=== PATIENT | female | born 1995 | race Hispanic/Latino ===

== ENCOUNTER 2021-07-13 16:28 | Emergency (ER) | payer OTHER, BC, SELFPAY ==
[2021-07-13 16:48] VITALS: BP 113/58; PULSE 94; RESP 18; O2SAT 100
--- NOTE | 2021-07-13 17:26 | ED.NAVMDI ---
HPI - Nausea/Vomiting/Diarrhea General Chief complaint: Nausea/Vomiting/Diarrhea Stated complaint: headache and nausea during - 15 wks Time Seen by Provider: 07/13/21 17:15 History of Present Illness HPI Narrative: 25-year-old female presents emergency room for evaluation of vomiting and diarrhea was since yesterday. Patient states that she is 15 weeks and is receiving regular [employer] [employer] care. You patient also complains of a generalized abdominal cramping, headache, and body aches. Patient denies fever. Related Data Allergies Allergy/AdvReac Type Severity Reaction Status Date / Time No Known Allergies Allergy Unverified 10/07/18 16:31 Review of Systems Review of Systems: CONSTITUTIONAL: Denies fever, chills, or sweats. EYES: Denies visual changes, redness, or discharge. ENT: Denies rhinorrhea, congestion, sore throat, or otalgia. CARDIOVASCULAR: Denies chest pain, palpitations, or edema. RESPIRATORY: Denies cough or dyspnea. GASTROINTESTINAL: Reports nausea vomiting diarrhea GENITOURINARY: Denies dysuria or hematuria. SKIN: Denies rash or itching. MUSCULOSKELETAL: Denies back pain, joint pain, or myalgia. NEUROLOGIC: Denies headache, numbness, dizziness, or weakness. PSYCHIATRIC: Denies anxiety or depression. Exam Narrative: GENERAL: Well-appearing, well-nourished, and in no acute distress. HEAD: Normocephalic, atraumatic. EYES: PERRLA and EOMI. CHEST: Clear to auscultation. No respiratory distress. No wheezes rales or rhonchi HEART: Regular rate and rhythm. No murmur heard. Normal peripheral pulses. ABDOMEN: Soft, nontender, nondistended, normal active bowel sounds. EXTREMITIES: Normal range of motion. No edema. SKIN: Warm, dry, no rash. NEURO: No focal deficits. Alert and oriented x3. PSYCH: Normal mood and affect. Course Vital Signs Vital signs: Vital Signs Pulse Rate 94 07/13/21 16:48 Respiratory Rate 18 07/13/21 16:48 Blood Pressure 113/58 L 07/13/21 16:48 Pulse Oximetry 100 07/13/21 16:48 Pulse Rate 94 07/13/21 16:48 Respiratory Rate 18 07/13/21 16:48 Blood Pressure 113/58 L 07/13/21 16:48 Pulse Oximetry 100 07/13/21 16:48 MDM - Nausea/Vomiting/Diarrhea Lab Data Result diagrams: 07/13/21 18:01 07/13/21 18:01 Labs: Lab Results 07/13/21 07/13/21 07/13/21 Range/Units 18:01 18:01 19:14 WBC 9.2 (4.5-10.0) K/mm3 RBC 3.78 L (4.2-5.4) M/mm3 Hgb 11.2 L (12.0-15.0) g/dL Hct 33.3 L (37.0-47.0) % MCV 88.1 (80-100) fl MCH 29.6 (26-34) pg MCHC 33.6 (32-36) g/dl RDW 12.3 (11.5-14.5) % Plt Count 241 (150-375) k/mm3 MPV 9.3 (7.4-10.4) fl Immature Gran % (Auto) 0.5 (0-0.5) % Neut % (Auto) 78.5 H (45.5-73.1) % Lymph % (Auto) 15.8 L (18.3-44.2) % [place] % (Auto) 4.8 (2.6-8.5) % Eos % (Auto) 0.2 (0-4.4) % Baso % (Auto) 0.2 (0.2-1.2) % Lymph # (Auto) 1.46 (0.9-3.2) K/mm3 [place] # (Auto) 0.4 (0.1-0.6) K/mm3 Eos # (Auto) 0.0 (0-0.3) K/mm3 Baso # (Auto) 0.0 (0.0-0.1) K/mm3 Abs Immat Gran (auto) 0.05 H (0.00-0.031) K/mm3 Absolute Neuts (auto) 7.2 H (1.3-6.7) K/mm3 Absolute Nucleated RBC 0.0 (0.0-0.012) K/mm3 Nucleated RBC % 0.0 (0.0-0.2) % Sodium 134 L (137-145) mmol/L Potassium 3.6 (3.4-5.0) mmol/L Chloride 103 (98-107) mmol/L Carbon Dioxide 23 (22-30) mmol/L Anion Gap 8 (8-16) mmol/L BUN 7 (7-17) mg/dL Creatinine 0.40 L (0.7-1.0) mg/dL Estim Creat Clear Calc 157 ml/min Estimated GFR > 60 (59 - ) Glucose 95 (65-110) mg/dL Calcium 8.6 (8.4-10.2) mg/dL Total Bilirubin 0.2 (0.2-1.3) mg/dL AST 22 (14-36) U/L ALT 11 (4-35) U/L Alkaline Phosphatase 55 (38-126) U/L Total Protein 7.0 (6.3-8.2) g/dL Albumin 4.1 (3.5-5.1) g/dL Urine Color Straw (Yellow) Urine Appearance Clear (Clear) Urine pH 6.0 (5.0-9.0) Ur Specific [place] 1.0
[2021-07-13] MEDS: ONDANSETRON INJ 4 MG/2 ML VIAL IV PUSH (18:03)
[2021-07-13] MEDS: SODIUM CHLORIDE 0.9% IV 1,000 ML 999 ML IV CONT (18:03)
[2021-07-13 18:12] LABS: Basophils Percent Auto 0.2 % (0.2-1.2); Eosinophils Percent Auto 0.2 % (0-4.4); Hematocrit 33.3 % (37.0-47.0); Hemoglobin 11.2 g/dL (12.0-15.0); Immature Granulocyte Absolute 0.05 K/mm3 (0.00-0.031); Immature Granulocyte Percent A 0.5 % (0-0.5); Lymphocytes Absolute Auto 1.46 K/mm3 (0.9-3.2); Lymphocytes Percent Auto 15.8 % (18.3-44.2); Mean Corpuscular HGB Conc 33.6 g/dl (32-36); Mean Corpuscular Hemoglobin 29.6 pg (26-34); Mean Corpuscular Volume 88.1 fl (80-100); Mean Platelet Volume 9.3 fl (7.4-10.4); Monocytes Absolute Auto 0.4 K/mm3 (0.1-0.6); Monocytes Percent Auto 4.8 % (2.6-8.5); Neutrophils Absolute Auto 7.2 K/mm3 (1.3-6.7); Neutrophils Percent Auto 78.5 % (45.5-73.1); Platelet Count Result 241 k/mm3 (150-375); Red Blood Count 3.78 M/mm3 (4.2-5.4); Red Cell Distribution Width 12.3 % (11.5-14.5); White Blood Count 9.2 K/mm3 (4.5-10.0)
[2021-07-13] MEDS: ACETAMINOPHEN 500 MG TABLET 1000 MG PO (18:14)
[2021-07-13 18:22] LABS: Alanine Aminotransferase 11 U/L (4-35); Albumin Level 4.1 g/dL (3.5-5.1); Alkaline Phosphatase 55 U/L (38-126); Anion Gap 8 mmol/L (8-16); Aspartate Amino Transferase 22 U/L (14-36); Bilirubin,Total 0.2 mg/dL (0.2-1.3); Blood Urea Nitrogen 7 mg/dL (7-17); Calcium 8.6 mg/dL (8.4-10.2); Carbon Dioxide 23 mmol/L (22-30); Chloride 103 mmol/L (98-107); Estimated CRCL calculation 157 ml/min; Estimated Glomerular Filt Rate > 60; Glucose 95 mg/dL (65-110); Potassium 3.6 mmol/L (3.4-5.0); Sodium 134 mmol/L (137-145)
[2021-07-13 19:28] LABS: Add Urine Microscopic? YES; Appearance Urine Clear (Clear); Bilirubin Urine Negative (Negative); Blood Urine 1+ (Negative); Color Urine Straw (Yellow); Glucose Urine UA Negative (Negative); Ketones Urine 1+ mg/dL (Negative); Leukocyte Esterase Ur Negative LEU/UL (Negative); Mucus Urine Rare /lpf; Nitrate Urine Negative (Negative); Protein Urine Negative (Negative); RBC Urine 0-2 /hpf (0-2); Specific Grav Ur 1.009 (1.001-1.035); Squamous Epithelial Cell Urine Rare /hpf (Few); Urobilinogen Urine Negative mg/dL (<2.0); WBC Urine 0-3 /hpf
[2021-07-13 19:51] VITALS: BP 100/58; PULSE 81; RESP 14; O2SAT 100
== END 2021-07-13 19:52 | disposition home or self-care (01) ==
PROVIDERS: Emergency Provider Nurse Practitioner Family
DX: O99.612 Diseases of the digestive system complicating pregnancy, second trimester (principal); K52.9 Noninfective gastroenteritis and colitis, unspecified; Z3A.15 15 weeks gestation of pregnancy
CPT/HCPCS: 36415; 80053; 81001; 85025; 96361; 96374; 96375; 99284; A9270; J2405; J7030

== ENCOUNTER 2021-12-28 16:56 | Inpatient (IN) | payer MEDICAID, SELFPAY ==
[2021-12-28] VITALS (8 sets, daily range): BP systolic 99–122; BP diastolic 53–80; PULSE 81–90; TEMP 36.6–37.1; BMI 31.5
--- NOTE | 2021-12-28 16:56 | LDADM ---
This patient, Yani Foster, was admitted to Labor/Delivery/Recovery 107 on 12/28/21 at 16:56. Plans for labor, pain management and were discussed with patient. Patient/family oriented to hospital policies and general routines including ID bracelet, bed and alarms, visiting hours, pain management, procedures, bathroom and other care routines, personal items, smoking policy, room service/diet and guest tray routines, infant security routines, and visiting hours. Patient/Family are encouraged to report perceived risks to care and to ask questions if they do not understand what they are told or what they should do. See OBIX for further documentation.
--- OUTSIDE RECORDS SUMMARY | 2021-12-28 17:03 | XMS_ITS | Encounter Summary ---
:1995 Author Care Team Providers Name Role Phone Yessenia Heath CANDACE Primary Care Provider [phone] Reason for Visit OB visit Patient here for Ob visit 38 weeks Assessment and Plan Assessment Note Patient is ___weeks . Discussed plan. 1. Routine care Discussion Note: None recorded.Patient educational handouts: No information available. Plan of Care Reminders Provider Appointments None recorded. ? ? Lab None recorded. ? ? Referral None recorded. ? ? Procedures None recorded. ? ? Surgeries None recorded. ? ? Imaging None recorded. ? ? Medications Name Start Date ? ? tdfjuycvnd-kxzewmqlvejhe-rbgrrhdo 50 mg-300 mg-40 mg c apsule ? TAKE 1 CAPSULE BY MOUTH EVERY 6 HOURS hydrocortisone-pramoxine 2.5 %-1 % rectal cream ? INSERT 1 APPLICATION RECTALLY DIRECTED hydrocortisone-pramoxine 2.5 %-1 % topical cream ? Apply by topical route for 30 days. ? Medications Administered None recorded. Vitals Height Weight BMI Blood Pressure 5 ft 2 in 174.8 lbs 32 kg/m2 112/77 mm[Hg] Results Lab Results None recorded. Allergies Code Code System Name Reaction Severity Onset NKDA ? ? ? Problems Name Status Onset Date Source ? Active 06/25/2021 ? Procedures Date Name Performed by ? 11/25/2021 , Obstetric, Follow-up [place] [address] [address]
--- OUTSIDE RECORDS SUMMARY | 2021-12-28 17:03 | XMS_ITS | Encounter Summary ---
:1995 Author Care Team Providers Name Role Phone Yessenia Aroldo Heath CNP Primary Care Provider [phone] Reason for Visit OB visit Assessment and Plan Assessment Note Patient is [...] ? Medications Name Start Date ? ? rttkecaqkn-xausrgbqqurrk-gaipvdxm 50 mg-300 mg-40 mg c apsule ? TAKE 1 CAPSULE BY MOUTH EVERY 6 HOURS hydrocortisone-pramoxine 2.5 %-1 % rectal cream ? INSERT 1 APPLICATION RECTALLY DIRECTED hydrocortisone-pramoxine 2.5 %-1 % topical cream ? Apply by topical route for 30 days. ? Medications Administered None recorded. Vitals Height Weight BMI Blood Pressure 5 ft 2 in 178 lbs 32.6 kg/m2 114/73 mm[Hg] Results Lab Results None recorded. Allergies Code Code System Name Reaction Severity Onset NKDA ? ? ? Problems Name Status Onset Date Source ? Active 06/25/2021 ? Procedures None recorded. Vaccine List None recorded. Social History Tobacco Smoking Status Former Smoker Do you have difficulty walking or climbing N stairs? What type of diet are you following? REGU
--- OUTSIDE RECORDS SUMMARY | 2021-12-28 17:03 | XMS_ITS ---
:1995 Author Care Team Providers Name Role Phone [employer] Primary Care Provider [phone] Allergies Code Code System Name Reaction Severity Status Onset NKDA ? Medications Name Status Start Date Stop Date ? ? klqirczdqn-cvdkrjuksjjjo-jqtdxnyv 50 mg-300 mg-40 mg capsule Act joi ? Not available TAKE 1 CAPSULE BY MOUTH EVERY 6 HOURS Finacea 15 % topical foam Completed ? 2021 hydrocortisone-pramoxine 2.5 %-1 % rectal cream Active ? Not available INSERT 1 APPLICATION RECTALLY DIRECTED hydrocortisone-pramoxine 2.5 %-1 % topical cream Active ? Not available Apply by topical route for 30 days. ondansetron HCl 4 mg tablet Completed ? 09/19 Active ? Not available tramadol 50 mg tablet Completed ? 06/12/2020 TK 1 T PO Q 4 TO 6 H PRN P Tums Completed ? 10/06/2021 Tylenol Completed ? 10/06/2021 Problems Name Status Onset Date Source ? Active 06/25/2021 ? Procedures Date Name Performed by ? 06/25/2021 US, Obstetric, Nuchal Translucency [facility] [address] [place] [address] ([address]) 08/21/2021 US, Obstetric, 2Nd or 3Rd Trimester Georgina hyman [address] [place] [address] (Work [address]) 11/25/2021 US, Obstetric, Follow-up Rafael Gonzalez
--- OUTSIDE RECORDS SUMMARY | 2021-12-28 17:04 | XMS_ITS | Encounter Summary ---
:1995 Author Care Team Providers Name Role Phone Yessenia Heath [facility] Primary Care Provider [phone] Reason for Visit OB visit Assessment and Plan Assessment Note Patient is ___weeks . Discussed plan. 1. Hemorrhoids ? Analpram-HC 2.5 %-1 % rectal cream Discussion Note: None recorded.Patient educational handouts: No information available. Plan of Care Reminders Provider Appointments None recorded. ? ? Lab None recorded. ? ? Referral None recorded. ? ? Procedures None recorded. ? ? Surgeries None recorded. ? ? Imaging None recorded. ? ? Medications Name Start Date ? ? tppwxdnawy-vwedbqhuzkytv-txisdojj 50 mg-300 mg-40 mg c apsule ? TAKE 1 CAPSULE BY MOUTH EVERY 6 HOURS hydrocortisone-pramoxine 2.5 %-1 % rectal cream ? INSERT 1 APPLICATION RECTALLY DIRECTED hydrocortisone-pramoxine 2.5 %-1 % topical cream ? Apply by topical route for 30 days. ? Medications Administered None recorded. Vitals Height Weight BMI Blood Pressure 5 ft 2 in 172 lbs 31.5 kg/m2 105/71 mm[Hg] Results Lab Results None recorded. Allergies Code Code System Name Reaction Severity Onset NKDA ? ? ? Problems Name Status Onset Date Source ? Active 06/25/2021 ? Procedures Date Name Performed by ? 11/25/2021 , Obstetric, Follow-up [place] [address] [address]
--- OUTSIDE RECORDS SUMMARY | 2021-12-28 17:04 | XMS_ITS | Encounter Summary ---
:1995 Author Care Team Providers Name Role Phone Yessenia Aroldo Heath CNP Primary Care Provider [phone] Reason for Visit OB visit Assessment and [...] ? Medications Name Start Date ? ? bxmxobjonn-srqujeulkuthz-tuvmmzjb 50 mg-300 mg-40 mg c apsule ? TAKE 1 CAPSULE BY MOUTH EVERY 6 HOURS hydrocortisone-pramoxine 2.5 %-1 % rectal cream ? INSERT 1 APPLICATION RECTALLY DIRECTED hydrocortisone-pramoxine 2.5 %-1 % topical cream ? Apply by topical route for 30 days. ? Medications Administered None recorded. Vitals Height Weight BMI Blood Pressure 5 ft 2 in 166 lbs 30.4 kg/m2 104/68 mm[Hg] Results Lab Results None recorded. Allergies [...]
--- OUTSIDE RECORDS SUMMARY | 2021-12-28 17:04 | XMS_ITS | Encounter Summary ---
:1995 Author Care Team Providers Name Role Phone Yessenia Aroldo Heath CNP Primary Care Provider [phone] Reason for Visit OB visit Assessment and [...] ? Medications Name Start Date ? ? skfjtsqxmh-phpiaavqnvpzt-bqjtkjuz 50 mg-300 mg-40 mg c apsule ? TAKE 1 CAPSULE BY MOUTH EVERY 6 HOURS hydrocortisone-pramoxine 2.5 %-1 % rectal cream ? INSERT 1 APPLICATION RECTALLY DIRECTED hydrocortisone-pramoxine 2.5 %-1 % topical cream ? Apply by topical route for 30 days. ? Medications Administered None recorded. Vitals Height Weight BMI Blood Pressure 5 ft 2 in 172 lbs 31.5 kg/m2 102/66 mm[Hg] Results Lab Results None recorded. Allergies Code Code System Name Reaction Severity Onset NKDA ? ? ? Problems Name Status Onset Date Source ? Active 06/25/2021 ? Procedures None recorded. Vaccine List None recorded. Social History Tobacco Smoking Status Former Smoker Do you have difficulty walking or climbing N stairs? What type of diet are you following? REG
--- OUTSIDE RECORDS SUMMARY | 2021-12-28 17:04 | XMS_ITS | Encounter Summary ---
:1995 Author Care Team Providers Name Role Phone Yessenia Heath CANDACE Primary Care Provider [phone] Reason for Visit OB visit Assessment and [...] ? Medications Name Start Date ? ? fnyscgoqoh-syiwxlvwdxorl-xifhcgys 50 mg-300 mg-40 mg c apsule ? TAKE 1 CAPSULE BY MOUTH EVERY 6 HOURS hydrocortisone-pramoxine 2.5 %-1 % rectal cream ? INSERT 1 APPLICATION RECTALLY DIRECTED hydrocortisone-pramoxine 2.5 %-1 % topical cream ? Apply by topical route for 30 days. ? Medications Administered None recorded. Vitals Height Weight BMI Blood Pressure 5 ft 2 in 175 lbs 32 kg/m2 107/68 mm[Hg] Results Lab Results None recorded. Allergies Code Code System Name Reaction Severity Onset NKDA ? ? ? Problems Name Status Onset Date Source ? Active 06/25/2021 ? Procedures Date Name Performed by ? 11/25/2021 US, Obstetric, Follow-up [place] [address] [place] [address]
--- OUTSIDE RECORDS SUMMARY | 2021-12-28 17:04 | XMS_ITS | Encounter Summary ---
:1995 Author Care Team Providers Name Role Phone Yessenia Heath CANDACE Primary Care Provider [phone] Reason for Visit None recorded. Assessment and Plan 1. Uterine size for dates discrepancy ? US, obstetric, follow-up Discussion Note: None recorded.Patient educational handouts: No information available. Plan of Care Reminders Provider Appointments None recorded. ? ? Lab None recorded. ? ? Referral None recorded. ? ? Procedures None recorded. ? ? Surgeries None recorded. ? ? Imaging US, Obstetric, Follow-up 11/25/2021 Chester perez Medications Name Start Date ? ? vlkgdsnysm-mlabxfbarmjhj-eyoimrme 50 mg-300 mg-40 mg c apsule ? TAKE 1 CAPSULE BY MOUTH EVERY 6 HOURS hydrocortisone-pramoxine 2.5 %-1 % rectal cream ? INSERT 1 APPLICATION RECTALLY DIRECTED hydrocortisone-pramoxine 2.5 %-1 % topical cream ? Apply by topical route for 30 days. ? Medications Administered None recorded. Vitals None recorded. Results Lab Results None recorded. Allergies Code Code System Name Reaction Severity Onset NKDA ? ? ? Problems Name Status Onset Date Source ? Active 06/25/2021 ? Procedures Date Name Performed by ? 11/25/2021 US, Obstetric, Follow-up [place] [address] [place] [address] (Work [address]) Vaccine List None recorded. Social History Tobacco Smoking Status Former Smoker
--- OUTSIDE RECORDS SUMMARY | 2021-12-28 17:04 | XMS_ITS | Encounter Summary ---
:1995 Author Care Team Providers Name Role Phone Yessenia Aroldo Heath CNP Primary Care Provider [phone] Reason for Visit OB visit Assessment and [...] ? Medications Name Start Date ? ? iiydhksvrf-ratonffvxzavb-fomaqidv 50 mg-300 mg-40 mg c apsule ? TAKE 1 CAPSULE BY MOUTH EVERY 6 HOURS hydrocortisone-pramoxine 2.5 %-1 % rectal cream ? INSERT 1 APPLICATION RECTALLY DIRECTED hydrocortisone-pramoxine 2.5 %-1 % topical cream ? Apply by topical route for 30 days. ? Medications Administered None recorded. Vitals Height Weight BMI Blood Pressure 5 ft 2 in 167 lbs 30.5 kg/m2 110/72 mm[Hg] Results Lab Results None recorded. Allergies [...]
--- OUTSIDE RECORDS SUMMARY | 2021-12-28 17:04 | XMS_ITS | Encounter Summary ---
:1995 Author Care Team Providers Name Role Phone Yessenia Aroldo Heath CNP Primary Care Provider [phone] Reason for Visit OB visit Assessment and Plan 1. Routine care Discussion Note: None recorded.Patient educational handouts: No information available. Plan of Care Reminders Provider Appointments None recorded. ? ? Lab None recorded. ? ? Referral None recorded. ? ? Procedures None recorded. ? ? Surgeries None recorded. ? ? Imaging None recorded. ? ? Medications Name Start Date ? ? wbsoikmsse-ywjxpimzrvqob-lbmcmjce 50 mg-300 mg-40 mg c apsule ? TAKE 1 CAPSULE BY MOUTH EVERY 6 HOURS hydrocortisone-pramoxine 2.5 %-1 % rectal cream ? INSERT 1 APPLICATION RECTALLY DIRECTED hydrocortisone-pramoxine 2.5 %-1 % topical cream ? Apply by topical route for 30 days. ? Medications Administered None recorded. Vitals Height Weight BMI Blood Pressure 5 ft 2 in 159 lbs 29.1 kg/m2 97/65 mm[Hg] Results Lab Results None recorded. Allergies Code Code System Name Reaction Severity Onset NKDA ? ? ? Problems Name Status Onset Date Source ? Active 06/25/2021 ? Procedures None recorded. Vaccine List None recorded. Social History Tobacco Smoking Status Former Smoker Do you have difficulty walking or climbing N stairs? What type of diet are you following? REGULAR Are you able to walk? YESWOREST Are you able to care for yourself? Y
[2021-12-28 17:32] LABS: Basophils Percent Auto 0.3 % (0.2-1.2); Eosinophils Absolute Auto 0.1 K/mm3 (0-0.3); Eosinophils Percent Auto 0.8 % (0-4.4); Hematocrit 36.1 % (37.0-47.0); Hemoglobin 12.1 g/dL (12.0-15.0); Immature Granulocyte Absolute 0.13 K/mm3 (0.00-0.031); Immature Granulocyte Percent A 1.3 % (0-0.5); Lymphocytes Absolute Auto 1.94 K/mm3 (0.9-3.2); Lymphocytes Percent Auto 19.2 % (18.3-44.2); Mean Corpuscular HGB Conc 33.5 g/dl (32-36); Mean Corpuscular Hemoglobin 27.9 pg (26-34); Mean Corpuscular Volume 83.2 fl (80-100); Mean Platelet Volume 9.9 fl (7.4-10.4); Monocytes Absolute Auto 0.7 K/mm3 (0.1-0.6); Monocytes Percent Auto 6.6 % (2.6-8.5); Neutrophils Absolute Auto 7.2 K/mm3 (1.3-6.7); Neutrophils Percent Auto 71.8 % (45.5-73.1); Platelet Count Result 213 k/mm3 (150-375); Red Blood Count 4.34 M/mm3 (4.2-5.4); Red Cell Distribution Width 13.4 % (11.5-14.5); White Blood Count 10.1 K/mm3 (4.5-10.0)
[2021-12-28] MEDS: DINOPROSTONE 10 MG VAG INSERT VAGINAL (17:58)
--- NOTE | 2021-12-28 22:45 | WPDANESEPP ---
Anes - Eval Pre Procedure Procedure: LAbor epidural Date/Time: 12/28/21 22:45 Surgeon: Marcie Preop Diagnosis: Abd pain with contractions Pre Op Diagnosis: IOL Patient Data Age: 26 Gender: F Height: 1.57 m Weight: 78.25 kg Last Vital Signs Temp 98.7 F 12/28/21 21:00 Pulse 81 12/28/21 18:01 BP 111/66 12/28/21 18:01 O2 Del Method Room Air 12/28/21 17:25 Allergies Allergy/AdvReac Type Severity Reaction Status Date / Time No Known Allergies Allergy Unverified 10/07/18 16:31 Home Medications Medication Instructions Recorded Confirmed Type prenat.vits,jami,wgc-vbmv-jcumv 1 tablet PO DAILY 12/05/21 12/28/21 History Laboratory Tests 12/28/21 12/28/21 12/28/21 17:18 17:18 17:18 WBC 10.1 K/mm3 H K/mm3 (4.5-10.0) RBC 4.34 M/mm3 M/mm3 (4.2-5.4) Hgb 12.1 g/dL g/dL (12.0-15.0) Hct 36.1 % L % (37.0-47.0) MCV 83.2 fl fl (80-100) MCH 27.9 pg pg (26-34) MCHC 33.5 g/dl g/dl (32-36) RDW 13.4 % % (11.5-14.5) Plt Count 213 k/mm3 k/mm3 (150-375) MPV 9.9 fl fl (7.4-10.4) Immature Gran % (Auto) 1.3 % H % (0-0.5) Neut % (Auto) 71.8 % % (45.5-73.1) Lymph % (Auto) 19.2 % % (18.3-44.2) [place] % (Auto) 6.6 % % (2.6-8.5) Eos % (Auto) 0.8 % % (0-4.4) Baso % (Auto) 0.3 % % (0.2-1.2) Lymph # (Auto) 1.94 K/mm3 K/mm3 (0.9-3.2) [place] # (Auto) 0.7 K/mm3 H K/mm3 (0.1-0.6) Eos # (Auto) 0.1 K/mm3 K/mm3 (0-0.3) Baso # (Auto) 0.0 K/mm3 K/mm3 (0.0-0.1) Abs Immat Gran (auto) 0.13 K/mm3 H K/mm3 (0.00-0.031) Absolute Neuts (auto) 7.2 K/mm3 H K/mm3 (1.3-6.7) Absolute Nucleated RBC 0.0 K/mm3 K/mm3 (0.0-0.012) Nucleated RBC % 0.0 % % (0.0-0.2) RPR Pending Blood Type O Positive Antibody Screen Negative Patient hx anesthesia problems: none Family hx anesthesia problems: none Results Review: All pre-operative results and documents have been reviewed as part of the pre-operative evaluation. [facility] Past Medical History Medical History Anxiety and depression Hemorrhoid IBS (irritable bowel syndrome) and not yet delivered Family History Family History (Updated 12/05/21 @ 15:51 by Anne Donovan, RN) Other Patient denies significant medical history Social History Social History Smoking status: Former smoker Substance use: never Spiritual care concerns: No Exam Day of Procedure 12/28/21 22:45 Patient weight: normal Airway: Mallampati scale class II
[2021-12-29] VITALS (127 sets, daily range): BP systolic 67–145; BP diastolic 35–88; PULSE 55–295; RESP 16–18; TEMP 36.6–37.2; O2SAT 85–100
[2021-12-29] MEDS: fentaNYL CITRATE INJ (*CRX) 100 MCG/2 ML VIAL 50 MCG IV PUSH ×2 (03:49→04:48)
[2021-12-29] MEDS: LACTATED RINGERS 1,000 ML 125 ML IV CONT ×3 (06:25→10:37)
[2021-12-29] MEDS: OXYTOCIN 30 UNITS/NS 500 ML 30 UNITS/500 ML BAG IV CONT (06:26)
[2021-12-29] MEDS: fentaNYL CITRATE INJ (*CRX) 100 MCG/2 ML VIAL IV PUSH (06:26)
--- NOTE | 2021-12-29 07:56 | WPDANESEPP ---
Anes - Eval Pre Procedure Procedure: labor epidural Date/Time: 12/29/21 07:56 Surgeon: Dr. Jack Preop Diagnosis: Labor Pain Pre Op Diagnosis: Labor Pain Patient Data Age: 26 Gender: F Height: 1.57 m Weight: 78.25 kg Last Vital Signs Temp 36.6 C 12/29/21 06:27 Pulse 86 12/29/21 07:55 Resp 16 12/29/21 02:30 BP 101/45 L 12/29/21 07:55 Pulse Ox 100 12/29/21 07:51 O2 Del Method Room Air 12/28/21 17:25 Allergies Allergy/AdvReac Type Severity Reaction Status Date / Time No Known Allergies Allergy Unverified 10/07/18 16:31 Home Medications Medication Instructions Recorded Confirmed Type prenat.vits,jami,mqy-wgsi-pkyhw 1 tablet PO DAILY 12/05/21 12/28/21 History Laboratory Tests 12/28/21 12/28/21 12/28/21 17:18 17:18 17:18 WBC 10.1 K/mm3 H K/mm3 (4.5-10.0) RBC 4.34 M/mm3 M/mm3 (4.2-5.4) Hgb 12.1 g/dL g/dL (12.0-15.0) Hct 36.1 % L % (37.0-47.0) MCV 83.2 fl fl (80-100) MCH 27.9 pg pg (26-34) MCHC 33.5 g/dl g/dl (32-36) RDW 13.4 % % (11.5-14.5) Plt Count 213 k/mm3 k/mm3 (150-375) MPV 9.9 fl fl (7.4-10.4) Immature Gran % (Auto) 1.3 % H % (0-0.5) Neut % (Auto) 71.8 % % (45.5-73.1) Lymph % (Auto) 19.2 % % (18.3-44.2) [place] % (Auto) 6.6 % % (2.6-8.5) Eos % (Auto) 0.8 % % (0-4.4) Baso % (Auto) 0.3 % % (0.2-1.2) Lymph # (Auto) 1.94 K/mm3 K/mm3 (0.9-3.2) [place] # (Auto) 0.7 K/mm3 H K/mm3 (0.1-0.6) Eos # (Auto) 0.1 K/mm3 K/mm3 (0-0.3) Baso # (Auto) 0.0 K/mm3 K/mm3 (0.0-0.1) Abs Immat Gran (auto) 0.13 K/mm3 H K/mm3 (0.00-0.031) Absolute Neuts (auto) 7.2 K/mm3 H K/mm3 (1.3-6.7) Absolute Nucleated RBC 0.0 K/mm3 K/mm3 (0.0-0.012) Nucleated RBC % 0.0 % % (0.0-0.2) RPR Pending Blood Type O Positive Antibody Screen Negative Patient hx anesthesia problems: none Family hx anesthesia problems: none Results Review: All pre-operative results and documents have been reviewed as part of the pre-operative evaluation. [facility] Past Medical History Medical History Anxiety and depression Hemorrhoid IBS (irritable bowel syndrome) and not yet delivered Family History Family History (Updated 12/05/21 @ 15:51 by Anne Donovan, RN) Other Patient denies significant medical history Social History Social History Smoking status: Former smoker Substance use: never Spiritual care concerns: No Exam Day of Procedure 12/29/21 07:56 Patient weight: obese Heart: regular rate and rhythm Lungs: clear to auscultation Airway: Mallampati scale class II Neurological: alert and oriented
--- NOTE | 2021-12-29 08:19 | WPDHPUPDATE1 ---
History and Physical Update Update Date/Time: 12/29/21 08:19This patient is a 26-year-old 2 para 1 at 39 weeks gestation who presents for elective induction of labor. Cervidil was placed overnight, Pitocin was started this morning, artificial rupture membranes was performed, clear fluid, 2 cm / 50%/ -2 reassuring status. Expectant management. History and Physical has been reviewed, including an updated exam of the patient. There are NO changes in the patient's condition. Risks, benefits, and alternatives have been discussed and questions answered. Patient agrees to proceed with procedure.
[2021-12-29 09:12] LABS: Rapid Plasma Reagin Non-Reactive (NonReactive)
[2021-12-29] MEDS: ACETAMINOPHEN ELIXIR 325 MG/10.15 ML UDC 650 MG PO (13:21)
--- NOTE | 2021-12-29 17:22 | PM.OBPRVD ---
OB - Delivery Note Procedure Delivery date: 12/29/21 Procedure: Induction method: AROM, Per Misoprostol Protocol and Per Cervidil Protocol Delivery monitor: External FHT and External Uterine Route of delivery: Laceration Description: None Quantitative Blood Loss (ml): 75 Anesthesia type: Epidural Disposition: Floor Complications: none Baby Date of : 12/29/21 Time of : 17:09 Weeks of gestation at delivery: 39 Weight (pounds): 6 Weight (ounces): 8 Placenta delivery description: Spontaneous Cord Vessel Description: 3 Vessels score one minute: 8 score five minutes: 9
[2021-12-29] MEDS: WITCH HAZEL 40 PADS 1 PAD TOPICAL (21:00)
[2021-12-29] MEDS: BENZOCAINE 20% AER SPR (*SP) 56 GM CAN 1 SPRAY TOPICAL (21:00)
--- NOTE | 2021-12-29 21:35 | OBPPTRN ---
Patient transferred to post room #291 via wheelchair. Support person, James, present. Oriented to unit, room, information board, rooming in, admission packet and security measures. Patient verbalizes understanding.
[2021-12-29] MEDS: LANOLIN (LANSINOH) 7.5 GM CREAM 1 APPLIC TOPICAL (22:35)
[2021-12-29] MEDS: IBUPROFEN 600 MG TABLET PO (22:36)
[2021-12-29] MEDS: DIBUCAINE 1% OINTMENT 30 GM TUBE 1 APPLIC TOPICAL (22:37)
[2021-12-30] MEDS: ACETAMINOPHEN 325 MG TABLET 650 MG PO ×4 (01:49→19:17)
[2021-12-30 04:45] VITALS: BP 110/65; PULSE 64; RESP 16; TEMP 36.9; O2SAT 99
[2021-12-30] MEDS: IBUPROFEN 600 MG TABLET PO ×3 (04:57→19:20)
[2021-12-30 05:58] LABS: Hematocrit 31.5 % (37.0-47.0); Hemoglobin 10.3 g/dL (12.0-15.0)
[2021-12-30] MEDS: MULTIVIT/MIN/PREN/FOL AC/IRON TABLET 1 TAB PO (07:37)
[2021-12-30 07:45] VITALS: BP 105/69; PULSE 81; RESP 16; TEMP 36.4; O2SAT 99
--- NOTE | 2021-12-30 07:54 | PM.OBPNVD ---
OB - PN: Subj Subjective Date/time seen: 12/30/21 07:54 Patient comments: no complaints, pain well controlled, incisional pain, tolerating diet and flatus present OB - PN: Obj Data Labs CBC & Chem 7: 12/30/21 04:56 Labs: Laboratory Results - last 24 hr 12/28/21 12/30/21 17:18 04:56 Hgb 10.3 L Hct 31.5 L RPR Non-reactive OB - PN A/P Plan day: 1 Plan: routine care Comments: No problems, routine care Time Spent With Patient Time: Total time spent is greater than 50% in coordination of care (as documented) at patient's floor/unit and/or counseling patient: Exam Const: General: comfortable, no acute distress and alert Resp: Effort & Inspection: normal respiratory effort Auscultation: no crackles, no rales and no rhonchi Cardio: Rate: regular rate Heart sounds: no click, no murmurs and no rubs GI: Inspection: non-distended GI Palp: No Tenderness to palpation present (GI) Auscultation: normal bowel sounds Other: Incision - CDI Extrem: General: normal to inspection, no pedal edema and no calf tenderness
[2021-12-30 11:46] VITALS: BP 111/68; PULSE 83; RESP 16; TEMP 36.6; O2SAT 100
--- NOTE | 2021-12-30 12:10 | PC.NURSE ---
1110 - 1135 Introductions were made, then consulted with patient to assess needs related to . Mother led the conversation with her?plans to feed?her infant and the?experience so far. Resources provided for inpatient and outpatient services using a resource guide and mom/baby guide. Mother voiced understanding of information and will call if there is a request for assistance. Reported to the primary RN.
--- NOTE | 2021-12-30 14:28 | WPDANLDPN2 ---
Anes-Prog Note L&D Date/Time: 12/30/21 14:28 Comfortable throughout: labor and delivery Neuraxial method: epidural Epidural/Spinal procedure site: clean & non-tender Neuro status: Neuro function grossly intact. Cardiovascular status: normal Respiratory status: normal Airway patency: baseline Mental status: baseline Post-Op hydration status: normal Vital Signs: Last Vital Signs Temp 36.6 C 12/30/21 11:46 Pulse 83 12/30/21 11:46 Resp 16 12/30/21 11:46 BP 111/68 12/30/21 11:46 Pulse Ox 100 12/30/21 11:46 O2 Del Method Room Air 12/29/21 22:00 Pain score (VAS): 03/31 I/O: Intake & Output 12/29/21 12/30/21 12/30/21 23:59 07:59 15:59 Intake Total 480 240 Output Total 275 Balance 205 240 Post-procedural complaints: none Patient feedback: Patient satisfied with anesthetic care.
--- NOTE | 2021-12-30 14:49 | PC.NURSE ---
[id number] Consulted with patient to assess needs related to . Mother led conversation and state she hasn't breastfed her since 1100 and discussion reviewed regarding stimulating infant to breastfeed from the start of the last feeding. Mother works well with her with encouragement. Encouraged skin to skin to see if her will demonstrate feeding cues. Reviewed working with , breast, nipples and how to protect the nipples with an optimal deep latch, good positioning, and good hand washing. Encouraged responding to feeding cues, frequencies of feeding 8-12 times in 24 hours (approximately 2-3 hours), duration of feedings, milk production, intake/output feeding sheet, signs of adequate intake using the pie demonstration, and encouraging swallowing at the breast. Reviewed positioning and alignment, supporting breast, off-centered (asymmetrical latch) and leading with the chin with big open wide gape. latched optimally to the right breast in football position. Education given to mother of how to visualize suck/swallow ratios effectively drinking at the breast. was able to maintain latch without discomfort to mother. Nipple care reviewed with optimal latch and good positioning, and to have clean hands when touching the nipple/breast. Resources used to facilitate learning were used from the tool and mom and baby guide. Mother voiced understanding of the education shared, calling for assistance if the infant does not wake to latch or if there is discomfort with . Reported to the primary RN.
[2021-12-30 16:15] VITALS: BP 108/68; PULSE 73; RESP 16; TEMP 36.2; O2SAT 73
[2021-12-30 20:00] VITALS: BP 113/67; PULSE 83; RESP 18; TEMP 36.9
[2021-12-31] MEDS: IBUPROFEN 600 MG TABLET PO ×2 (01:31→09:17)
[2021-12-31] MEDS: ACETAMINOPHEN 325 MG TABLET 650 MG PO ×2 (01:31→09:18)
[2021-12-31 08:00] VITALS: PULSE 84; RESP 18; O2SAT 100
[2021-12-31 08:05] VITALS: BP 112/76; PULSE 84; RESP 18; TEMP 36.5; O2SAT 100
[2021-12-31] MEDS: MULTIVIT/MIN/PREN/FOL AC/IRON TABLET 1 TAB PO (09:17)
--- NOTE | 2021-12-31 11:56 | PM.OBPNVD ---
OB - PN: Subj Subjective Date/time seen: 12/31/21 11:56 Patient comments: no complaints, pain well controlled and tolerating diet OB - PN: Obj Data Labs CBC & Chem 7: 12/30/21 04:56 OB - PN A/P Plan day: 2 Plan: routine care and discharge home Time Spent With Patient Time: Total time spent is greater than 50% in coordination of care (as documented) at patient's floor/unit and/or counseling patient: Exam Const: General: comfortable and no acute distress Resp: Effort & Inspection: normal respiratory effort Auscultation: no rales, no rhonchi and no wheezes Cardio: Rate: regular rate Heart sounds: no click, no murmurs and no rubs GI: GI Palp: Yes Soft to palpation and No Tenderness to palpation present (GI) Auscultation: normal bowel sounds Extrem: General: normal to inspection, no pedal edema and no calf tenderness
--- NOTE | 2021-12-31 11:58 | PM.OBDSVD ---
DS: Admitting Diagnosis Discharge Date 12/31/20 Admitting Diagnosis Term OB - DS: Summary OB Procedures : None OB Procedures Intrapartum: Spontaneous Vag Delivery OB Procedures: : None Time Spent with Patient Time attestation: Total time spent providing and/or coordinating discharge services: Discharge Plan Discharge Discharging Clinician: Lotus Jack Patient Disposition: Home, Self-Care Activity: pelvic rest Diet: regular Patient Instructions: Antibiotic Form Stand Alone Forms: General Discharge Information Follow-up/Referrals: Lotus Jack MD [Physician] - Discharge Medications: Continued #2 Tablet 1 tablet PO DAILY Date of admission: 12/28/21 16:56 Primary Care Provider: PHYSICIAN,LICENSED PSYCHOLOGIST DIRECTOR Admitting Provider: Lotus Jack Attending physician on admission: Lotus Jack Condition: Stable
--- NOTE | 2021-12-31 13:14 | PC.NURSE ---
Patient viewed the discharge video Mother & Baby Care, The First Two Weeks . Patient was given the opportunity and encouraged to ask questions. Patient verbalized understanding of information shared and has been given the mother/baby guide for home reference.
--- NOTE | 2021-12-31 14:25 | PC.NURSE ---
[id number] Mother led the conversation with her experience, plan to feed her so far not sure what she desires to do as she pumps her breast. Mother states she latches her to her breast when the wants to do it . Mother is feeding appropriately for growth of , understands stimulating infant to eat if needed, and has pumped 15 mls of human milk. has had appropriate feedings in the last 24 hours meets the outcomes for weight, output and jaundice at this time. Mother states she is confident to continue feeding her infant at home, when to call for assistance and denies any additional assistance or education at this time. Father of baby was encouraged as he was emotional regarding his fears of messing up or doing something wrong with his baby . Reviewed the period of purple crying , how to manage a crying infant and keeping her safe. Mother has a 6 year child and this is father's first child. Questions and concerns were addressed and parents voiced understanding of how to reach out for support using the mom/baby guide. Reinforced understanding of milk production, transition of milk, signs of adequate intake, prevention/relief of engorgement, responsive after visualizing feeding cues, the different methods of stimulating infant to breastfeed 2-3 hours after the start of the last feeding, community resources, medication information reviewed per [facility] and when to call a provider using the resource of the mom and baby guide/[facility] website. Mother voiced understanding of the education shared. Reported to the primary RN.
[2022-01-01 08:35] VITALS: BP 112/72; PULSE 81; RESP 20; TEMP 36.8; O2SAT 97
== END 2021-12-31 13:22 | disposition home or self-care (01) | DRG 807 ==
LOC: ANHLDR 12-29 07:58 → ANHOB2 12-29 21:43
PROVIDERS: Admitting Provider Obstetrics & Gynecology; Visit Provider Obstetrics & Gynecology
DX: O80 Encounter for full-term uncomplicated delivery (principal); Z37.0 Single live birth; Z3A.39 39 weeks gestation of pregnancy
CPT/HCPCS: 36415; 85014; 85018; 85025; 86592; 86850; 86900; 86901; A9270; J2590; J2795; J3010; J7120

== ENCOUNTER 2022-04-25 19:03 | Emergency (ER) | payer BC, SELFPAY ==
[2022-04-25 19:13] VITALS: BP 122/77; PULSE 82; RESP 18; TEMP 36.6; O2SAT 100
--- NOTE | 2022-04-25 19:27 | ED.GENADULT ---
HPI - General Adult General Chief complaint: Headache Stated complaint: esparza/vomiting Time Seen by Provider: 04/25/22 19:18 History of Present Illness HPI narrative: 26-year-old female with history of migraines presenting to the emergency department for evaluation of worsening headache. Patient states that headache started as usual and was a normal headache this morning. Patient states multiple times during the day she did take Tylenol with no improvement. Patient describes a frontal headache with associated nausea without vomiting. Patient does have light sensitivity. Patient states she does have numbness over my entire body . Patient is currently breast-feeding a child of 4 months old Related Data Home Medications Medication Instructions Recorded Confirmed prenat.vits,jami,[id number] 1 tablet PO DAILY 12/05/21 12/28/21 Allergies Allergy/AdvReac Type Severity Reaction Status Date / Time No Known Allergies Allergy Verified 04/25/22 19:38 Review of Systems Review of Systems: CONSTITUTIONAL: Denies fever, chills, or sweats. EYES: Denies visual changes, redness, or discharge. ENT: Denies rhinorrhea, congestion, sore throat, or otalgia. CARDIOVASCULAR: Denies chest pain, palpitations, or edema. RESPIRATORY: Denies cough or dyspnea. GASTROINTESTINAL: Denies abdominal pain, nausea, vomiting, or diarrhea. GENITOURINARY: Denies dysuria or hematuria. SKIN: Denies rash or itching. MUSCULOSKELETAL: Denies back pain, joint pain, or myalgia. NEUROLOGIC: See HPI [facility], [facility] Past Medical History Medical History Anxiety and depression Hemorrhoid IBS (irritable bowel syndrome) and not yet delivered Family History Family History (Updated 12/05/21 @ 15:51 by Anne Donovan RN) Other Patient denies significant medical history Social History Social History Smoking status: Former smoker Substance use: never Spiritual care concerns: No Exam Narrative: APPEARANCE: Uncomfortable due to headache HEAD: normocephalic, atraumatic. EYES: PERRLA/EOMI, conjunctivae clear. NOSE: Normal no drainage EARS:TMS clear with good light reflex. NECK: Supple. No adenopathy, no masses. RESPIRATORY: Airway patent, respirations nonlabored. Clear to auscultation bilaterally, no rales, rhonchi, wheezing. CARDIOVASCULAR: Regular rate and rhythm without murmurs rubs or gallops. ABDOMINAL: Soft, nontender, nondistended, normal bowel sounds MUSCULOSKELETAL: Moves all extremities. Strength/ROM intact, No edema, No calf tenderness. NEURO: Alert. Cranial nerves II through XII intact. Grossly intact. No ataxia. Normal coordination. No drift. SKIN: Warm, dry. Normal Color Course Course Emergency Course: Patient does have a history of migraines and this migraine is not significantly different from her prior. Patient denies worst headache of her life and headache started gradually. Patient is neurologically intact. Patient will be treated with a migraine cocktail. All questions concerns were addressed. Patient was comfortable with the plan for treatment. No evidence for meningeal signs. Low concern for intracranial abnormality or hemorrhage. Patient did feel improved with the migraine cocktail treatment of IV saline, IV Compazine, IV Toradol and IV Benadryl. Patient was encouraged of close follow-up with her primary care physician. All question concerns were addressed. Vital Signs Vital signs: Vital Signs Temperature 97.9 F 04/25/22 19:13 Pulse Rate 82 04/25/22 19:13 Respiratory Rate 18 04/25/22 19:13 Blood Pressure 122/77 04/25/22 19:13 Pulse Oximetry 100 04/25/22 19:13 Oxygen Delivery Room Air 04/25/22 19:13 Temperature 97.9 F 04/25/22 19:13 Pulse Rate 82 04/25/22 19:13 Respiratory Rate 18 04/25/22 19:13 Blood Pressure 122/77 04/25/22 19:13 Pulse Oximetry 100 04/25/22 1
[2022-04-25] MEDS: SODIUM CHLORIDE 0.9% IV 1,000 ML 999 ML IV CONT (19:48)
[2022-04-25] MEDS: diphenhydrAMINE HCl INJ 50 MG/ML VIAL 25 MG IV PUSH (19:49)
[2022-04-25] MEDS: KETOROLAC 15 MG/ML VIAL (*BKC) IV PUSH (19:50)
[2022-04-25] MEDS: PROCHLORPERAZINE EDISYLATE 10 MG/2 ML VIAL IV PUSH (19:50)
== END 2022-04-25 21:07 | disposition home or self-care (01) ==
PROVIDERS: Emergency Provider Emergency Medicine
DX: G43.909 Migraine, unspecified, not intractable, without status migrainosus (principal); Z87.891 Personal history of nicotine dependence
CPT/HCPCS: 96361; 96374; 96375; 99284; J0780; J1200; J1885; J7030

== ENCOUNTER 2022-08-07 06:46 | Emergency (ER) | payer OTHER, BC, SELFPAY ==
--- NOTE | ~2022-08-07 | CT_ITS ---
Non-contrast Head CT History: Headache Technique: Axial non-contrast imaging of the brain was performed. Dose reduction technique was used on this scan by utilizing automated exposure control and iterative reconstruction technique. The dose -length product (DLP) was 605.33 mGy-cm. Findings: There is no evidence of intracranial hemorrhage, mass lesion, or acute infarct. Brain par enchyma appears normal. The ventricles and subarachnoid spaces are normal in size. The calvarium ap pears normal. The visualized paranasal sinuses and mastoid air cells are clear. Impression: No significant abnormality seen. Reviewed, dictated and finalized at location . Impression: No significant abnormality seen.
[2022-08-07 06:52] VITALS: BP 131/77; PULSE 89; RESP 16; TEMP 36.8; O2SAT 99
--- NOTE | 2022-08-07 08:23 | ED.HA ---
HPI - Headache General Chief Complaint: Headache Stated Complaint: headache since yesterday Time Seen by Provider: 08/07/22 08:10 Source: patient and EMS Mode of arrival: EMS Limitations: no limitations History of Present Illness HPI Narrative: Patient presents with intermittent sharp stabbing pain at the left top of her head, denies aggravating or relieving factors, at work got worse, came by ambulance. She denies any fever, chills, or vomiting. History of migraine headache did not start her Topamax yet, she report that headache today is different than her normal migraine headache, patient is 1 month , trouble sleeping lately. Related Data Home Medications Medication Instructions Recorded Confirmed prenat.vits,jami,[id number] 1 tablet PO DAILY 12/05/21 12/28/21 Allergies Allergy/AdvReac Type Severity Reaction Status Date / Time No Known Allergies Allergy Verified 08/07/22 06:57 Review of Systems Review of Systems: All systems reviewed & are unremarkable except as noted in HPI and below PMFSH Past Medical History Medical History Anxiety and depression Hemorrhoid IBS (irritable bowel syndrome) and not yet delivered Family History Family History Other Patient denies significant medical history Social History Social History Smoking status: Former smoker Substance use: never Spiritual care concerns: No Exam Narrative: General appearance: Well-developed, well-nourished Skin: Normal color Head: Normocephalic, nontraumatic Eyes: Clear conjunctiva ENT: Oropharynx normal, ears normal, nose normal Neck: Supple, nontender Chest and respiratory: Airway patent, no respiratory distress, no accessory muscle use Heart: Regular rate/rhythm Abdomen: Soft, nontender, no organomegaly, quiet bowel sounds Vascular: Normal peripheral pulses, normal capillary refill. Musculoskeletal: Normal range of motion, nontender back Neurologic: Alert and oriented ?3, ENGINE DISPATCHER is normal as tested, no gross motor deficit Course Vital Signs Vital signs: Vital Signs Temperature 36.8 C 08/07/22 06:52 Pulse Rate 89 08/07/22 06:52 Respiratory Rate 16 08/07/22 06:52 Blood Pressure 131/77 08/07/22 06:52 Pulse Oximetry 99 08/07/22 06:52 Oxygen Delivery Room Air 08/07/22 06:52 Temperature 36.8 C 08/07/22 06:52 Pulse Rate 89 08/07/22 06:52 Respiratory Rate 16 08/07/22 06:52 Blood Pressure 131/77 08/07/22 06:52 Pulse Oximetry 99 08/07/22 06:52 Oxygen Delivery Room Air 08/07/22 06:52 MDM - Headache MDM Narrative Medical decision making narrative: Patient did not start her Topamax yet. History of migraine, 1 month , CT head showed no acute abnormalities, patient headache today high likely secondary to lack of sleep, related symptoms, and distress patient will be discharged to follow-up with neurologist and was advised to start Topamax as soon as possible Differential Diagnosis Differential diagnosis: Likely migraine, tension headache, headache and other (Stress related symptoms) Imaging Data Radiologist's impression: Impressions Head CT 08/07/22 08:31 Impression: No significant abnormality seen. Critical Care Time Critical Care Time Critical Care Time: Yes Total Critical Care Time: 20 Discharge Plan Discharge Clinical Impression: Headache Patient Disposition: Home, Self-Care Condition: Improved Instructions: Antibiotic Form, Acute Headache (ED) Additional Ins
[2022-08-07] MEDS: SODIUM CHLORIDE 0.9% IV 1,000 ML 999 ML IV CONT (08:55)
[2022-08-07] MEDS: diphenhydrAMINE HCl INJ 50 MG/ML VIAL 25 MG IV PUSH (08:56)
[2022-08-07] MEDS: KETOROLAC 30 MG/ML VIAL (*BKC) IV PUSH (08:56)
[2022-08-07 10:07] VITALS: BP 114/85; PULSE 60; RESP 12; O2SAT 100
== END 2022-08-07 10:07 | disposition home or self-care (01) ==
PROVIDERS: Emergency Provider Emergency Medicine
DX: R51.9 Headache, unspecified (principal); K58.9 Irritable bowel syndrome, unspecified; Z87.891 Personal history of nicotine dependence
CPT/HCPCS: 70450; 96374; 96375; 99284; J1200; J1885; J2060; J2765; J7030

== ENCOUNTER 2022-09-02 18:56 | Emergency (ER) | payer OTHER, BC, SELFPAY ==
--- NOTE | 2022-09-02 20:27 | ECG_ITS ---
Measurements Intervals [place] Rate: 80 P: 55 AK: 140 QRS: 80 QRSD: 108 T: 51 QT: 374 QTc: 434 Interpretive Statements SINUS RHYTHM NO PREVIOUS ECG AVAILABLE FOR COMPARISON Electronically Signed On 09-03-2022 13:51:50 CDT by Suzi Lipscomb M.D.
--- NOTE | 2022-09-02 20:38 | ED.GENADULT ---
HPI - General Adult General Chief complaint: Arrhythmia/Palpitations Time Seen by Provider: 09/02/22 20:27 History of Present Illness HPI narrative: Patient 27-year-old female who presents the emergency department with chief complaint of anxiety. The patient reports that she was at home she has been under a lot of stress and is recently patient reports that she felt a espinoza, over her body and that her lips started getting tingly and she started breathing fast. The patient states that she feels anxious and is worried that something happened but she thinks she may have just had a panic attack. Patient denies suicidal or homicidal ideation denies auditory or visual hallucinations. Related Data Home Medications Medication Instructions Recorded Confirmed prenat.vits,jami,[id number] 1 tablet PO DAILY 12/05/21 12/28/21 Allergies Allergy/AdvReac Type Severity Reaction Status Date / Time No Known Allergies Allergy Verified 09/02/22 21:31 Review of Systems Review of Systems: A 10 system review of systems was completed on the patient and is negative except for what is stated in the HPI. Nursing and ancillary documentation was reviewed. [facility] Past Medical History Medical History Anxiety and depression Hemorrhoid IBS (irritable bowel syndrome) and not yet delivered Family History Family History Other Patient denies significant medical history Social History Social History Smoking status: Former smoker Substance use: never Spiritual care concerns: No Exam Narrative: GENERAL: Well-appearing, well-nourished, and in no acute distress. HEAD: Normocephalic, atraumatic. EYES: PERRLA and EOMI. ENT: Nares clear, no rhinorrhea or epistaxis. Mucous membranes moist. NECK: Supple. CHEST: Clear to auscultation. No respiratory distress. HEART: Regular rate and rhythm. No murmur heard. Normal peripheral pulses. ABDOMEN: Soft, nontender, nondistended, normal active bowel sounds. EXTREMITIES: Normal range of motion. No edema. SKIN: Warm, dry, no rash. NEURO: No focal deficits. Alert and oriented x3. PSYCH: Normal mood and affect. Course Vital Signs Vital signs: Vital Signs Pulse Rate 81 09/02/22 21:31 Respiratory Rate 15 09/02/22 21:31 Blood Pressure 117/84 09/02/22 21:31 Pulse Oximetry 98 09/02/22 21:31 Pulse Rate 92 09/02/22 23:01 Respiratory Rate 19 09/02/22 23:01 Blood Pressure 127/92 H 09/02/22 23:01 Pulse Oximetry 98 09/02/22 23:01 Medical Decision Making MDM Narrative Medical decision making narrative: Differential diagnosis includes electrolyte abnormality, palpitations, dysrhythmia, anxiety, depression Laboratory studies were obtained on the patient which showed a normal CBC with a white blood cell count of 8.1 hemoglobin is 13.5 CMP was obtained which showed a potassium of 3.7 renal function showed a BUN of 16 and a creatinine is 0.6 liver enzymes AST and ALT were within normal limits bilirubin 0.3 urinalysis showed 2+ blood but otherwise negative urinalysis. The patient has been observed on the alert monitor in the emergency department without any significant dysrhythmias the patient did jump up to the low 100s but all heart rate sinus rhythm and below 120. EKG was sinus rhythm with a rate of [address] elevation or ST depression no dysrhythmia present Vital Signs Vital Signs: Vital Signs Pulse Rate 81 09/02/22 21:31 Respiratory Rate 15 09/02/22 21:31 Blood Pressure 117/84 09/02/22 21:31 Pulse Oximetry 98 09/02/22 21:31 Pulse Rate 92 09/02/22 23:01 Respiratory Rate 19 09/02/22 23:01 Blood Pressure 127/92 H 09/02/22 23:01 Pulse Oximetry 98 09/02/22 23:01 Lab Data 09/02/22 20:49 09/02/22 20:4
[2022-09-02] MEDS: SODIUM CHLORIDE 0.9% IV 1,000 ML 999 ML IV CONT (20:51)
[2022-09-02 20:59] LABS: Basophils Absolute Auto 0.1 K/mm3 (0.0-0.1); Basophils Percent Auto 0.7 % (0.2-1.2); Eosinophils Absolute Auto 0.1 K/mm3 (0-0.3); Eosinophils Percent Auto 1.2 % (0-4.4); Hematocrit 40.9 % (37.0-47.0); Hemoglobin 13.5 g/dL (12.0-15.0); Immature Granulocyte Absolute 0.02 K/mm3 (0.00-0.031); Immature Granulocyte Percent A 0.2 % (0-0.5); Lymphocytes Absolute Auto 2.27 K/mm3 (0.9-3.2); Mean Corpuscular Hemoglobin 28.3 pg (26-34); Mean Corpuscular Volume 85.7 fl (80-100); Mean Platelet Volume 9.2 fl (7.4-10.4); Monocytes Absolute Auto 0.6 K/mm3 (0.1-0.6); Monocytes Percent Auto 6.9 % (2.6-8.5); Neutrophils Absolute Auto 5.1 K/mm3 (1.3-6.7); Platelet Count Result 323 k/mm3 (150-375); Red Blood Count 4.77 M/mm3 (4.2-5.4); Red Cell Distribution Width 12.4 % (11.5-14.5); White Blood Count 8.1 K/mm3 (4.5-10.0)
[2022-09-02 21:10] LABS: Appearance Urine Clear (Clear); Bacteria Urine None Seen /hpf; Bilirubin Urine Negative (Negative); Blood Urine 2+ (Negative); Color Urine Yellow (Yellow); Glucose Urine UA Negative (Negative); Ketones Urine Negative (Negative); Leukocyte Esterase Ur Negative LEU/UL (Negative); Nitrate Urine Negative (Negative); Non Pathogenic Casts 0-2; Protein Urine Negative (Negative); RBC Urine 0-2 /hpf (0-2); Specific Grav Ur 1.015 (1.001-1.035); Squamous Epithelial Cell Urine None seen /hpf (Few); Urobilinogen Urine 0.2 mg/dL (<2.0); WBC Urine 0-5 /hpf
[2022-09-02 21:11] LABS: Add Urine Microscopic? YES; Alanine Aminotransferase 16 U/L (6-35); Alkaline Phosphatase 106 U/L (38-126); Anion Gap 9 mmol/L (8-16); Aspartate Amino Transferase 26 U/L (14-36); Bilirubin,Total 0.3 mg/dL (0.2-1.3); Blood Urea Nitrogen 16 mg/dL (7-17); Calcium 9.1 mg/dL (8.4-10.2); Carbon Dioxide 30 mmol/L (22-30); Chloride 101 mmol/L (98-107); Estimated CRCL calculation 109 ml/min; Estimated Glomerular Filt Rate > 60; Glucose 90 mg/dL (65-110); Magnesium 2.1 mg/dL (1.6-2.3); Potassium 3.7 mmol/L (3.4-5.0); Sodium 140 mmol/L (137-145)
[2022-09-02 21:31] VITALS: BP 117/84; PULSE 81; RESP 15; O2SAT 98
[2022-09-02 22:30] VITALS: BP 116/72; BP 117/78; PULSE 83; PULSE 87
[2022-09-02 22:31] VITALS: BP 126/66; PULSE 93
[2022-09-02 23:01] VITALS: BP 127/92; PULSE 92; RESP 19; O2SAT 98
[2022-09-02 23:23] VITALS: BP 118/66; PULSE 92; RESP 15; O2SAT 100
== END 2022-09-02 23:23 | disposition home or self-care (01) ==
PROVIDERS: Emergency Provider Emergency Medicine
DX: R00.2 Palpitations (principal); F41.8 Other specified anxiety disorders; Z87.891 Personal history of nicotine dependence
CPT/HCPCS: 36415; 80053; 81001; 81025; 83735; 85025; 93005; 96360; 99283; J7030

== ENCOUNTER 2022-09-07 19:28 | Emergency (ER) | payer OTHER, BC, SELFPAY ==
[2022-09-07 19:55] VITALS: BP 144/94; PULSE 102; RESP 18; TEMP 36.6; O2SAT 97
--- NOTE | 2022-09-07 20:14 | ECG_ITS ---
Measurements Intervals [place] Rate: 83 P: 44 OR: 154 QRS: 81 QRSD: 110 T: 54 QT: 368 QTc: 433 Interpretive Statements SINUS RHYTHM WITH SINUS ARRHYTHMIA COMPARED TO ECG 09/02/2022 22:59:28 SINUS ARRHYTHMIA NOW PRESENT Electronically Signed On 09-08-2022 15:00:57 CDT by Tamia Hu M.D.
[2022-09-07 21:58] VITALS: BP 112/71; PULSE 82; RESP 14
[2022-09-07] MEDS: ONDANSETRON HCL ODT 4 MG TABLET PO (22:03)
[2022-09-07] MEDS: LORazepam (*CRX) 0.5 MG TABLET PO (22:03)
[2022-09-07 22:56] LABS: Thyroid Stimulating Hormone 0.776 uIU/mL (0.465-4.680)
--- NOTE | 2022-09-07 23:00 | ED.ANXIETY ---
HPI - Anxiety General Chief Complaint: Anxiety Stated Complaint: panic attacks Time Seen by Provider: 09/07/22 21:45 History of Present Illness HPI narrative: This is a 27-year-old female, with recent diagnosis of anxiety, started on sertraline 4 days ago, who presents to the emergency department complaining of anxiety and feeling like a mini simulation. Patient states her symptoms began this afternoon and have been persistent. She states she noticed the change in sensation since beginning her sertraline. She also was started on hydroxyzine but states no significant improvement in anxiety. She denies suicidal or homicidal ideations or hallucinations. Related Data Home Medications Medication Instructions Recorded Confirmed prenat.vits,jami,[id number] 1 tablet PO DAILY 12/05/21 12/28/21 Allergies Allergy/AdvReac Type Severity Reaction Status Date / Time No Known Allergies Allergy Verified 09/07/22 19:29 Review of Systems Review of Systems: CONSTITUTIONAL: Denies fever, chills, or sweats. CARDIOVASCULAR: Palpitations denies chest pain, or edema. RESPIRATORY: Denies cough or dyspnea. GASTROINTESTINAL: Denies abdominal pain, nausea, vomiting, or diarrhea. GENITOURINARY: Denies dysuria or hematuria. SKIN: Denies rash or itching. MUSCULOSKELETAL: Denies back pain, joint pain, or myalgia. NEUROLOGIC: Denies headache, numbness, dizziness, or weakness. PSYCHIATRIC: Anxiety Denies depression. Denies SI/HI PMFSH Past Medical History Medical History Anxiety and depression Hemorrhoid IBS (irritable bowel syndrome) and not yet delivered Family History Family History Other Patient denies significant medical history Social History Social History Smoking status: Former smoker Substance use: never Substance use type: does not use Spiritual care concerns: No Exam Narrative: GENERAL: Well-developed, well-nourished, appears anxious HEAD: Normocephalic, atraumatic. EYES: PERRLA and EOMI. CHEST: Clear to auscultation. ?No respiratory distress. ?No wheezes rales or rhonchi HEART: Regular rate and rhythm. ?No murmur heard. ?Normal peripheral pulses. ABDOMEN: Soft, nontender, nondistended, normal active bowel sounds. EXTREMITIES: Normal range of motion. ?No edema. SKIN: Warm, dry, no rash. NEURO: No focal deficits. ?Alert and oriented x3. PSYCH: Anxious mood and affect Course Course Emergency Course: 23:24 - On reevaluation, the patient states her symptoms are improved after Ativan. TSH within normal limits. Review of recent labs unremarkable. I suspect anxiety with aggravation of symptoms with sertraline. I advised patient to stop taking her sertraline and follow-up with her primary care doctor. Discussed return and emergency precautions including signs/symptoms of respiratory distress, ACS and suicidal ideations. The patient voiced understanding and is comfortable with the plan. All questions answered to her satisfaction. Vital Signs Vital signs: Vital Signs Temperature 97.8 F 09/07/22 19:55 Pulse Rate 102 H 09/07/22 19:55 Respiratory Rate 18 09/07/22 19:55 Blood Pressure 144/94 H 09/07/22 19:55 Pulse Oximetry 97 09/07/22 19:55 Oxygen Delivery Room Air 09/07/22 19:55 Temperature 97.6 F 09/07/22 23:37 Pulse Rate 100 09/07/22 23:37 Respiratory Rate 22 H 09/07/22 23:37 Blood Pressure 110/66 09/07/22 23:37 Pulse Oximetry 97 09/07/22 23:37 Oxygen Delivery Room Air 09/07/22 19:55 MDM - Anxiety MDM Narrative Medical decision making narrative: Plan: Labs, anxiolysis, primary care follow up Differential Diagnosis Differential diagnosis: Likely panic disorder, acute anxiety and other (hyperthyroidism, other) Lab Data Labs: Lab Results 09/07/22 Range/Uni
[2022-09-07 23:37] VITALS: BP 110/66; PULSE 100; RESP 22; TEMP 36.4; O2SAT 97
== END 2022-09-07 23:38 | disposition home or self-care (01) ==
LOC: ANHED 23:33
PROVIDERS: Emergency Provider Preventive Medicine Aerospace Medicine
DX: F41.9 Anxiety disorder, unspecified (principal); T43.225A Adverse effect of selective serotonin reuptake inhibitors, initial encounter; F32.A Depression, unspecified; K58.9 Irritable bowel syndrome, unspecified; Z87.891 Personal history of nicotine dependence
CPT/HCPCS: 36415; 84443; 93005; 99283; A9270

== ENCOUNTER 2022-09-19 18:00 | Emergency (ER) | payer OTHER, BC, SELFPAY ==
--- NOTE | ~2022-09-19 | CT_ITS ---
EXAMINATION: CT brain wo con DATE: 09/19/2022 20:50 INDICATION: Severe headache. Recurrent ear infections. TECHNIQUE: Computed tomography (CT) of the head was performed without intravenous contrast. Sagittal and coronal reconstructions were performed. The mA was adjusted according to patient size. Iterative reconstruction technique was employed. The dose-length product was 605.33 mGy-cm. COMPARISON: head CT dated 08/07/2022 FINDINGS: No acute intracranial hemorrhage, acute infarction or abnormal extra axial fluid collection. Ventricl es are normal and symmetric. No mass/mass effect. The orbits, paranasal sinuses and mastoid air cells are normal. IMPRESSION: 1. Normal head CT. Reviewed, dictated and finalized at location A. IMPRESSION: 1. Normal head CT.
[2022-09-19 18:05] VITALS: BP 120/75; PULSE 99; RESP 19; TEMP 36.9; O2SAT 99
--- NOTE | 2022-09-19 20:12 | ED.EAR ---
HPI - Ear Problem General Chief complaint: Ear Stated complaint: ear infection x 2 weeks with SILVA and neck pain Time Seen by Provider: 09/19/22 19:25 History of Present Illness HPI Narrative: Patient is a 27-year-old female presenting with ear pain and headache. Patient states that she has had recurrent ear infections and has been treated by her PCP. They recently switched her antibiotics. States that she continues to have pain in her right ear. States that she can feel water in that ear. States that she has had a pressure-like headache for the last several days that radiates into her upper neck and upper back. States that her muscles feel stiff. She took 1 Aleve with minimal relief and has not tried anything else. States that she is currently on prednisone as well. Denies fevers, numbness or weakness, vision changes, chest pain, shortness of breath, abdominal pain, nausea or vomiting, rashes, leg swelling. Related Data Home Medications Medication Instructions Recorded Confirmed prenat.vits,jami,[id number] 1 tablet PO DAILY 12/05/21 12/28/21 Allergies Allergy/AdvReac Type Severity Reaction Status Date / Time No Known Allergies Allergy Verified 09/19/22 18:00 Review of Systems Review of Systems: All systems reviewed & are unremarkable except as noted in HPI and below PMFSH Past Medical History Medical History Anxiety and depression Hemorrhoid IBS (irritable bowel syndrome) and not yet delivered Family History Family History Other Patient denies significant medical history Social History Social History Smoking status: Former smoker Substance use: never Substance use type: does not use Spiritual care concerns: No Exam Narrative: GENERAL: Well-appearing, well-nourished, and in no acute distress. HEAD: Normocephalic, atraumatic. EYES: PERRLA and EOMI. right TM with effusion and mild erythema, left TM w/o abnormalities ENT: Nares clear, no rhinorrhea or epistaxis. Mucous membranes moist. NECK: Supple. No nuchal rigidity, mild soreness involving cervical paraspinal muscles extending into bilateral trapezius muscles CHEST: Clear to auscultation. No respiratory distress. HEART: Regular rate and rhythm ABDOMEN: Soft, nontender, nondistended EXTREMITIES: Normal range of motion. No edema. SKIN: Warm, dry, no rash. NEURO: No focal deficits. Alert and oriented x3. PSYCH: Normal mood and affect. Course Vital Signs Vital signs: Vital Signs Temperature 98.4 F 09/19/22 18:05 Pulse Rate 99 09/19/22 18:05 Respiratory Rate 19 09/19/22 18:05 Blood Pressure 120/75 09/19/22 18:05 Pulse Oximetry 99 09/19/22 18:05 Oxygen Delivery Room Air 09/19/22 18:05 Temperature 98.4 F 09/19/22 18:05 Pulse Rate 93 09/19/22 21:48 Respiratory Rate 14 09/19/22 21:48 Blood Pressure 120/81 09/19/22 21:48 Pulse Oximetry 98 09/19/22 21:48 Oxygen Delivery Room Air 09/19/22 18:05 Medical Decision Making MDM Narrative Medical decision making narrative: Patient is a 27-year-old female presenting with headache and ear pain. Vitals within normal limits. Exam remarkable for the above. Patient is very well-appearing, in no acute distress, normal mental status. I do not suspect meningitis or more severe infection at this time. Blood work with mild leukocytosis. CT head looks fine. On reevaluation, the patient states that she feels well and she would like to go home which I think is reasonable. Advised that she continue taking her antibiotics and follow-up with ENT for these recurrent infections. Advised that she also follow-up with primary care. Patient voiced understanding and is agreeable to plan. Discharged in stable condition. Differential Diagnosis Differential Diagnosis: Otitis media, head
[2022-09-19] MEDS: ACETAMINOPHEN 500 MG TABLET 1000 MG PO (20:15)
[2022-09-19 20:29] LABS: Basophils Percent Auto 0.3 % (0.2-1.2); Hematocrit 41.2 % (37.0-47.0); Hemoglobin 13.5 g/dL (12.0-15.0); Immature Granulocyte Absolute 0.06 K/mm3 (0.00-0.031); Immature Granulocyte Percent A 0.5 % (0-0.5); Lymphocytes Absolute Auto 1.69 K/mm3 (0.9-3.2); Lymphocytes Percent Auto 14.1 % (18.3-44.2); Mean Corpuscular HGB Conc 32.8 g/dl (32-36); Mean Corpuscular Hemoglobin 28.1 pg (26-34); Mean Corpuscular Volume 85.8 fl (80-100); Mean Platelet Volume 9.1 fl (7.4-10.4); Monocytes Absolute Auto 0.5 K/mm3 (0.1-0.6); Monocytes Percent Auto 3.8 % (2.6-8.5); Neutrophils Absolute Auto 9.8 K/mm3 (1.3-6.7); Neutrophils Percent Auto 81.3 % (45.5-73.1); Platelet Count Result 335 k/mm3 (150-375); Red Cell Distribution Width 12.6 % (11.5-14.5)
[2022-09-19] MEDS: SODIUM CHLORIDE 0.9% IV 1,000 ML 999 ML IV CONT (20:30)
[2022-09-19] MEDS: KETOROLAC 15 MG/ML VIAL (*BKC) IV PUSH (20:31)
[2022-09-19 20:40] LABS: Alanine Aminotransferase 16 U/L (6-35); Alkaline Phosphatase 94 U/L (38-126); Anion Gap 8 mmol/L (8-16); Aspartate Amino Transferase 21 U/L (14-36); Bilirubin,Total 0.3 mg/dL (0.2-1.3); Blood Urea Nitrogen 13 mg/dL (7-17); Calcium 9.1 mg/dL (8.4-10.2); Carbon Dioxide 29 mmol/L (22-30); Chloride 101 mmol/L (98-107); Estimated Glomerular Filt Rate > 60; Glucose 114 mg/dL (65-110); Sodium 138 mmol/L (137-145)
[2022-09-19 20:42] LABS: Lactic Acid Reflex 1.2 mmol/L (0.7-2.0)
[2022-09-19 20:56] LABS: Appearance Urine Clear (Clear); Bilirubin Urine Negative (Negative); Blood Urine Negative (Negative); Color Urine Yellow (Yellow); Glucose Urine UA Negative (Negative); Ketones Urine Negative (Negative); Leukocyte Esterase Ur Negative LEU/UL (Negative); Nitrate Urine Negative (Negative); Protein Urine Negative (Negative); Specific Grav Ur 1.012 (1.001-1.035); Urobilinogen Urine 0.2 mg/dL (<2.0); pH Urine 7.5 (5.0-9.0)
[2022-09-19 21:00] LABS: Add Urine Microscopic? NO; Pregnancy On Board Control Positive; Urine Pregnancy Test Negative
[2022-09-19 21:48] VITALS: BP 120/81; PULSE 93; RESP 14; O2SAT 98
== END 2022-09-19 21:56 | disposition home or self-care (01) ==
PROVIDERS: Emergency Provider Emergency Medicine
DX: H66.91 Otitis media, unspecified, right ear (principal); R51.9 Headache, unspecified; K58.9 Irritable bowel syndrome, unspecified; Z87.891 Personal history of nicotine dependence
CPT/HCPCS: 36415; 70450; 80053; 81003; 81025; 83605; 85025; 96361; 96374; 99284; A9270; J1885; J2270; J7030

== ENCOUNTER → 2023-01-26 14:52 | Outpatient (CLI) | payer OTHER, SELFPAY ==
--- NOTE | ~2023-01-26 | CT_ITS ---
EXAMINATION: CT sinus wo con DATE: 01/26/2023 15:09 INDICATION: Chronic sinusitis TECHNIQUE: Computed tomography (CT) of the paranasal sinuses was performed without intravenous contra st. The dose-length product (DLP) was 286.20 mGy-cm. Iterative reconstruction was used. COMPARISON: 09/19/2022 FINDINGS: There is normal development and pneumatization of the paranasal sinuses. There is minimal o pacification of the anterior ethmoidal air cells on the left. The frontal, sphenoid, right ethmoid, a nd maxillary sinuses are clear. The bilateral ostiomeatal complexes are patent. Visualized soft tissu es are unremarkable. There are 4 mm of rightward deviation of the nasal septum. IMPRESSION: 1. Minimal opacification of the anterior ethmoidal air cells on the left. Reviewed, dictated and finalized at location B. OFFICE MEDICAL ASSISTANT
== END ==
PROVIDERS: PCP Otolaryngology; Visit Provider Otolaryngology
DX: J32.2 Chronic ethmoidal sinusitis (principal)
CPT/HCPCS: 70486

== ENCOUNTER 2023-02-01 17:01 | Emergency (ER) | payer OTHER, SELFPAY ==
[2023-02-01 17:12] VITALS: BP 121/90; PULSE 98; RESP 16; TEMP 36.9; O2SAT 100
--- NOTE | 2023-02-01 17:21 | ED.CHESTPAIN ---
HPI - Chest Pain General Chief Complaint: Upper Respiratory Infection Stated Complaint: Shortness of Breath;Dizziness Time Seen by Provider: 02/01/23 17:15 Source: patient Mode of arrival: ambulatory Limitations: no limitations History of Present Illness HPI narrative: Yani is a 27-year-old female patient presenting to the clinic today with complaints of shortness of breath, dizziness, globus sensation in her throat, and left-sided chest pain. She reports symptoms started approximately 3 days ago. Developed dizziness globus sensation, and chest discomfort today. States she is having a hard time catching her breath. Related Data Home Medications Medication Instructions Recorded Confirmed cholecalciferol (vitamin D3) 50 50 mcg PO DAILY 01/14/23 01/14/23 mcg (2,000 unit) capsule escitalopram oxalate 10 mg tablet 10 mg PO DAILY 01/14/23 01/14/23 (Lexapro) vitamin#30 30 mg iron-10 cap PO 01/14/23 01/14/23 mg iron-folic acid 1 mg-omg3 capsule Allergies Allergy/AdvReac Type Severity Reaction Status Date / Time No Known Allergies Allergy Verified 01/14/23 13:19 Review of Systems Review of Systems: Pertinent positives per HPI. Patient denies any fever, chills, rash, headache, visual changes, cough, palpitations, nausea, vomiting, diarrhea, constipation, abdominal pain, or any urinary issues. [facility] Past Medical History Medical History Anxiety and depression Hemorrhoid IBS (irritable bowel syndrome) and not yet delivered Sinus congestion Family History Family History Other Patient denies significant medical history Social History Social History Social History: CAffeine-none Smoking status: Former smoker Alcohol intake: never Substance use: never Substance use type: does not use Lack of Transportation: No Lack of Food: Never True Current Housing: I Have Housing Concerned About Future Housing: No Difficulty Paying Gas/Electric Bills: No Difficulty Paying for Meds: No Currently Unemployed: No Education: High School Diploma/GED Spiritual care concerns: No Comments At the time of my signature, I reviewed and agree with the nursing past medical, surgical, social, and family history. There is no relevant family history pertinent to the patient complaint. Exam Narrative: General: Well-developed, well nourished, in no apparent distress Head: Normocephalic, atraumatic Eyes: Pupils equally round and reactive to light bilaterally, EOM intact, sclera and conjunctive clear, no discharge, lids normal Ears: TMs intact and clear, ear canals clear, no drainage, grossly hearing normal. Nose: Nares patent, no discharge, no inflammation, no sinus tenderness. Mouth: Oral pharynx without lesions or masses, good dentition, MMM. Neck: Supple, trachea midline, no enlargement of anterior or posterior cervical nodes, no thyroid masses or goiter palpable. Cardio: Regular rate and rhythm, s1 and s2 normal, no murmur appreciated. Resp: Clear to auscultation bilaterally, no rhonchi, rales, wheezing or rubs Course Course Emergency Course: Portions of this record may have been created with voice recognition software. Level of Care: Express Care Visit Vital Signs Vital signs: Vital Signs Temperature 36.9 C 02/01/23 17:12 Pulse Rate 98 02/01/23 17:12 Respiratory Rate 16 02/01/23 17:12 Blood Pressure 121/90 02/01/23 17:12 Pulse Oximetry 100 02/01/23 17:12 Temperature 36.9 C 02/01/23 17:12 Pulse Rate 98 02/01/23 17:12 Respiratory Rate 16 02/01/23 17:12 Blood Pressure 121/90 02/01/23 17:12 Pulse Oximetry 100 02/01/23 17:12 Vital signs reviewed Transfer Transfered to: [place] Transportation: Other (private car) Transfer rationale: CP/SOB/G
--- NOTE | 2023-02-01 17:29 | ECG_ITS ---
Measurements Intervals [place] Rate: 75 P: 39 AL: 163 QRS: 65 QRSD: 108 T: 31 QT: 372 QTc: 418 Interpretive Statements SINUS RHYTHM NORMAL ECG COMPARED TO ECG 09/07/2022 20:26:57 NO SIGNIFICANT CHANGES Electronically Signed On 02-02-2023 6:05:47 PICKING BELT OPERATOR by Rafael Gonsalves D.O.
== END 2023-02-01 17:32 | disposition short-term general hospital (02) ==
PROVIDERS: Emergency Provider Nurse Practitioner Family
DX: R07.9 Chest pain, unspecified (principal); R06.02 Shortness of breath; R09.89 Other specified symptoms and signs involving the circulatory and respiratory systems; Z87.891 Personal history of nicotine dependence; F41.9 Anxiety disorder, unspecified; F32.A Depression, unspecified
CPT/HCPCS: 93005; 99213; G0463

== ENCOUNTER 2023-02-01 18:17 | Emergency (ER) | payer OTHER, SELFPAY ==
[2023-02-01] VITALS (7 sets, daily range): BP systolic 110–144; BP diastolic 77–127; PULSE 77–95; RESP 17–20; TEMP 36.6; O2SAT 100
--- NOTE | ~2023-02-01 | XR_ITS ---
EXAMINATION: XR chest 1V portable DATE: 02/01/2023 18:54 INDICATION: Shortness of breath TECHNIQUE: AP view of the chest was obtained. COMPARISON: None FINDINGS: The lungs are clear with no focal airspace opacities, pulmonary edema, pleural effusion or pneumothor ax. The cardiomediastinal silhouette is normal. Visualized bones and soft tissues are unremarkable. IMPRESSION: 1. Normal chest radiograph. Reviewed, dictated and finalized at location A. F OPHTHALMIC TECHNICIAN IMPRESSION: 1. Normal chest radiograph.
--- NOTE | 2023-02-01 18:45 | ED.GENADULT ---
HPI - General Adult General Chief complaint: Unspecified Stated complaint: MULTI C/O Time Seen by Provider: 02/01/23 18:28 History of Present Illness HPI narrative: 27-year-old female presented the emergency department for evaluation of some chest tightness that was going on a few days ago. Patient states she is also had some associated dizziness and some sore throat. Related Data Home Medications Medication Instructions Recorded Confirmed cholecalciferol (vitamin D3) 50 50 mcg PO DAILY 01/14/23 01/14/23 mcg (2,000 unit) capsule escitalopram oxalate 10 mg tablet 10 mg PO DAILY 01/14/23 01/14/23 (Lexapro) vitamin#30 30 mg iron-10 cap PO 01/14/23 01/14/23 mg iron-folic acid 1 mg-omg3 capsule Allergies Allergy/AdvReac Type Severity Reaction Status Date / Time No Known Allergies Allergy Verified 01/14/23 13:19 Review of Systems Review of Systems: All systems reviewed & are unremarkable except as noted in HPI and below PMFSH Past Medical History Medical History Anxiety and depression Hemorrhoid IBS (irritable bowel syndrome) and not yet delivered Sinus congestion Family History Family History Other Patient denies significant medical history Social History Social History Social History: CAffeine-none Smoking status: Former smoker Alcohol intake: never Substance use: never Substance use type: does not use Lack of Transportation: No Lack of Food: Never True Current Housing: I Have Housing Concerned About Future Housing: No Difficulty Paying Gas/Electric Bills: No Difficulty Paying for Meds: No Currently Unemployed: No Education: High School Diploma/GED Spiritual care concerns: No Exam Narrative: APPEARANCE: Well appearing, no pain, no distress, well-nourished. HEAD: normocephalic, atraumatic. EYES: PERRLA/EOMI, conjunctivae clear. NOSE: Normal no drainage EARS:TMS clear with good light reflex. THROAT: Pharynx clear, no exudate. NECK: Supple. No adenopathy, no masses. RESPIRATORY: Airway patent, respirations nonlabored. Clear to auscultation bilaterally, no rales, rhonchi, wheezing. CARDIOVASCULAR: Regular rate and rhythm without murmurs rubs or gallops. ABDOMINAL: Soft, nontender, nondistended, normal bowel sounds MUSCULOSKELETAL: Moves all extremities. Strength/ROM intact, No edema, No calf tenderness. NEURO: Alert. Cranial nerves II through XII intact. SKIN: Warm, dry. Normal Color Course Course Emergency Course: 27-year-old female present emergency department for evaluation of sore throat and chest tightness. Patient's chest x-ray showed no acute cardiopulmonary malady. Patient was negative for influenza RSV COVID and strep. Patient was updated the results of her work-up. Patient was encouraged of close follow-up with her primary care physician. All question concerns were addressed. Vital Signs Vital signs: Vital Signs Temperature 97.8 F 02/01/23 18:22 Pulse Rate 88 02/01/23 18:22 Respiratory Rate 17 02/01/23 18:22 Blood Pressure 144/127 H 02/01/23 18:22 Pulse Oximetry 100 02/01/23 18:22 Oxygen Delivery Room Air 02/01/23 18:22 Temperature 97.8 F 02/01/23 18:22 Pulse Rate 77 02/01/23 19:46 Respiratory Rate 18 02/01/23 19:46 Blood Pressure 127/91 H 02/01/23 19:46 Pulse Oximetry 100 02/01/23 19:46 Oxygen Delivery Room Air 02/01/23 18:29 Medical Decision Making Vital Signs Vital Signs: Vital Signs Temperature 97.8 F 02/01/23 18:22 Pulse Rate 88 02/01/23 18:22 Respiratory Rate 17 02/01/23 18:22 Blood Pressure 144/127 H 02/01/23 18:22 Pulse Oximetry 100 02/01/23 18:22 Oxygen Delivery Room Air 02/01/23 18:22 Temperature 97.8 F 02/01/23 18:22 Pulse Rate 77 02/01/23 19:46 Resp
[2023-02-01 19:21] LABS: Strep Group A RT-PCR NOT DETECTED (Negative)
[2023-02-01 19:32] LABS: Influenza A QL RT-PCR Negative (Negative); Influenza B QL RT-PCR Negative (Negative); RSV RNA, RT-PCR Negative (Negative); SARS-CoV-2 RNA PCR Negative (Negative)
--- NOTE | 2023-02-01 19:38 | ECG_ITS ---
Measurements Intervals [place] Rate: 80 P: 46 [place]: 160 QRS: 72 QRSD: 122 T: 38 QT: 367 QTc: 425 Interpretive Statements SINUS RHYTHM INCOMPLETE RIGHT BUNDLE BRANCH BLOCK BASELINE ARTIFACT- II, III BORDERLINE ECG COMPARED TO ECG 09/07/2022 20:26:57 NO SIGNIFICANT CHANGES Electronically Signed On 02-02-2023 6:06:53 HYDRO GENERATION MANAGER by Rafael Gonsalves D.O.
== END 2023-02-01 19:55 | disposition home or self-care (01) ==
PROVIDERS: Emergency Provider Emergency Medicine
DX: J02.9 Acute pharyngitis, unspecified (principal); R06.02 Shortness of breath; R53.83 Other fatigue; K58.9 Irritable bowel syndrome, unspecified; F41.9 Anxiety disorder, unspecified; F32.A Depression, unspecified; Z87.891 Personal history of nicotine dependence; Z20.822 Contact with and (suspected) exposure to COVID-19; I45.10 Unspecified right bundle-branch block
CPT/HCPCS: 71045; 87637; 87651; 93005; 99284

== ENCOUNTER 2023-05-21 10:33 | Emergency (ER) | payer OTHER, SELFPAY ==
--- NOTE | ~2023-05-21 | CT_ITS ---
Non-contrast Head CT History: Headache, vertigo Technique: Axial non-contrast imaging of the brain was performed. Dose reduction technique was used on this scan by utilizing automated exposure control and iterative reconstruction technique. The dose -length product (DLP) was 605.33 mGy-cm. Findings: There is no evidence of intracranial hemorrhage, mass lesion, or acute infarct. Brain par enchyma appears normal. The ventricles and subarachnoid spaces are normal in size. The calvarium ap pears normal. The visualized paranasal sinuses and mastoid air cells are clear. Impression: No significant abnormality seen. Reviewed, dictated and finalized at location . LOPMENTAL PSYCHOLOGIST Impression: No significant abnormality seen.
--- NOTE | 2023-05-21 10:48 | ECG_ITS ---
Measurements Intervals [place] Rate: 90 P: 37 MS: 149 QRS: 77 QRSD: 106 T: 44 QT: 361 QTc: 444 Interpretive Statements SINUS RHYTHM BASELINE WANDER- I, II, V3 NORMAL ECG COMPARED TO ECG 02/01/2023 19:46:40 NO SIGNIFICANT CHANGES Electronically Signed On 05-21-2023 12:12:38 AOC AIRSPACE CONTROL OFFICER by Rafael Gonsalves D.O.
[2023-05-21 11:12] LABS: Basophils Percent Auto 0.7 % (0.2-1.2); Eosinophils Absolute Auto 0.1 K/mm3 (0-0.3); Eosinophils Percent Auto 1.2 % (0-4.4); Hemoglobin 12.7 g/dL (12.0-15.0); Immature Granulocyte Absolute 0.02 K/mm3 (0.00-0.031); Immature Granulocyte Percent A 0.3 % (0-0.5); Lymphocytes Absolute Auto 2.57 K/mm3 (0.9-3.2); Lymphocytes Percent Auto 42.3 % (18.3-44.2); Mean Corpuscular HGB Conc 32.6 g/dl (32-36); Mean Corpuscular Hemoglobin 28.1 pg (26-34); Mean Corpuscular Volume 86.3 fl (80-100); Mean Platelet Volume 9.2 fl (7.4-10.4); Monocytes Absolute Auto 0.4 K/mm3 (0.1-0.6); Monocytes Percent Auto 6.9 % (2.6-8.5); Neutrophils Percent Auto 48.6 % (45.5-73.1); Platelet Count Result 316 k/mm3 (150-375); Red Blood Count 4.52 M/mm3 (4.2-5.4); Red Cell Distribution Width 12.5 % (11.5-14.5); White Blood Count 6.1 K/mm3 (4.5-10.0)
[2023-05-21 11:25] LABS: Alanine Aminotransferase 11 U/L (6-35); Albumin Level 4.8 g/dL (3.5-5.1); Alkaline Phosphatase 88 U/L (38-126); Anion Gap 6 mmol/L (8-16); Aspartate Amino Transferase 21 U/L (14-36); Bilirubin,Total 0.4 mg/dL (0.2-1.3); Blood Urea Nitrogen 9 mg/dL (7-17); Calcium 9.7 mg/dL (8.4-10.2); Carbon Dioxide 28 mmol/L (22-30); Chloride 105 mmol/L (98-107); Estimated Glomerular Filt Rate > 60; Glucose 95 mg/dL (65-110); Potassium 3.6 mmol/L (3.4-5.0); Sodium 139 mmol/L (137-145)
[2023-05-21 11:28] LABS: Appearance Urine Clear (Clear); Bilirubin Urine Negative (Negative); Blood Urine Negative (Negative); Color Urine Yellow (Yellow); Glucose Urine UA Negative (Negative); Ketones Urine Negative (Negative); Leukocyte Esterase Ur Negative LEU/UL (Negative); Nitrate Urine Negative (Negative); Protein Urine Negative (Negative); Specific Grav Ur 1.003 (1.001-1.035); Urobilinogen Urine 0.2 mg/dL (<2.0); pH Urine 6.5 (5.0-9.0)
[2023-05-21 11:44] LABS: Add Urine Microscopic? NO
[2023-05-21] MEDS: MECLIZINE HCL 25 MG TABLET PO (12:29)
--- NOTE | 2023-05-21 12:30 | ED.GENADULT ---
HPI - General Adult General Chief complaint: Dizziness Stated complaint: dizzyness Time Seen by Provider: 05/21/23 10:56 History of Present Illness HPI narrative: 27-year-old female presented emergency department for evaluation of vertigo symptoms. The patient states she has had these symptoms for approximately 1 week. Patient states that she has had dizziness which she also describes a sensation of movement with the course of the week. Patient states symptoms are worsened with movement and looking down specifically. Patient states she has had some increased pressure in her right ear. Patient does report intermittent ear pain. Denies any falls or injuries and denies any recent coughs colds or fevers. Patient denies any prior history of vertigo. Related Data Home Medications Medication Instructions Recorded Confirmed cholecalciferol (vitamin D3) 50 50 mcg PO DAILY 01/14/23 01/14/23 mcg (2,000 unit) capsule escitalopram oxalate 10 mg tablet 10 mg PO DAILY 01/14/23 01/14/23 (Lexapro) vitamin#30 30 mg iron-10 cap PO 01/14/23 01/14/23 mg iron-folic acid 1 mg-omg3 capsule Allergies Allergy/AdvReac Type Severity Reaction Status Date / Time No Known Allergies Allergy Verified 05/21/23 11:15 Review of Systems Review of Systems: All systems reviewed & are unremarkable except as noted in HPI and below PMFSH Past Medical History Medical History Anxiety and depression Hemorrhoid IBS (irritable bowel syndrome) and not yet delivered Sinus congestion Family History Family History Other Patient denies significant medical history Social History Social History Social History: CAffeine-none Smoking status: Former smoker Alcohol intake: never Substance use: never Substance use type: does not use Lack of Transportation: No Lack of Food: Never True Current Housing: I Have Housing Concerned About Future Housing: No Difficulty Paying Gas/Electric Bills: No Difficulty Paying for Meds: No Currently Unemployed: No Education: High School Diploma/GED Spiritual care concerns: No Course Course Emergency Course: Patient did feel improved with treatment and she was provided meclizine for p.r.n. for home. Vital Signs Vital signs: Vital Signs Pulse Rate 92 05/21/23 14:12 Respiratory Rate 16 05/21/23 14:12 Blood Pressure 132/82 05/21/23 14:12 Pulse Oximetry 100 05/21/23 14:12 Pulse Rate 92 05/21/23 14:12 Respiratory Rate 16 05/21/23 14:12 Blood Pressure 132/82 05/21/23 14:12 Pulse Oximetry 100 05/21/23 14:12 Medical Decision Making MDM Narrative Medical decision making narrative: 27-year-old female presenting to the emergency department for evaluation of vertigo symptoms. Patient did decline the Compazine and Benadryl but patient was willing to take the meclizine. Patient is afebrile with no leukocytosis and a stable hemoglobin. No acute abnormalities on the CMP UA was negative for infection. Head CT showed no acute abnormality. Patient did feel improved with treatment. Patient was updated on the results of the workup and treatment plan with meclizine for home. Low concern for central vertigo, patient's symptoms are more consistent with benign positional vertigo. Differential Diagnosis Differential Diagnosis: Central vertigo, benign positional vertigo headache, migraine, intracranial abnormality Vital Signs Vital Signs: Vital Signs Pulse Rate 92 05/21/23 14:12 Respiratory Rate 16 05/21/23 14:12 Blood Pressure 132/82 05/21/23 14:12 Pulse Oximetry 100 05/21/23 14:12 Pulse Rate 92 05/21/23 14:12 Respiratory Rate 16 05/21/23 14:12 Blood Pressure 132/82 05/21/23 14:12 Pulse Oximetry 100 05/21/23 14:12 Lab Data Lab
[2023-05-21 14:12] VITALS: BP 132/82; PULSE 92; RESP 16; O2SAT 100
== END 2023-05-21 14:12 | disposition home or self-care (01) ==
PROVIDERS: Emergency Provider Emergency Medicine
DX: H81.10 Benign paroxysmal vertigo, unspecified ear (principal); K58.9 Irritable bowel syndrome, unspecified; F41.9 Anxiety disorder, unspecified; F32.A Depression, unspecified; Z87.891 Personal history of nicotine dependence
CPT/HCPCS: 36415; 70450; 80053; 81003; 81025; 85025; 93005; 99284; A9270

== ENCOUNTER 2023-06-16 10:27 | Outpatient (CLI) | payer OTHER, SELFPAY ==
--- NOTE | ~2023-06-16 | US_ITS ---
US breast BI complete DATE: 06/16/2023 11:36 INDICATION: Bilateral breast pain TECHNIQUE: Real-time imaging of both complete breasts including all 4 quadrants and subareolar areas COMPARISON: None FINDINGS: No suspicious mass or shadowing or other significant sonographic abnormality of either sumit st is detected. IMPRESSION: BI-RADS Category 1: Negative Recommendation: Routine mammographic screening beginning at age 40 unless there are breast symptoms o r physical findings prior to that. Reviewed, dictated and finalized at Location A. Reviewed, dictated and finalized at location A. IMPRESSION: BI-RADS Category 1: Negative Recommendation: Routine mammographic screening beginning at age 40 unless there are breast symptoms or physical findings prior to that.
== END 2023-06-16 10:28 | disposition home or self-care (01) ==
LOC: ANHIMG 10:34
DX: N64.4 Mastodynia (principal)
CPT/HCPCS: 76641

== ENCOUNTER 2023-11-04 21:27 | Emergency (ER) | payer OTHER, SELFPAY ==
--- NOTE | ~2023-11-04 | XR_ITS ---
EXAMINATION: XR chest 2V DATE: 11/04/2023 21:59 INDICATION: Chest pain TECHNIQUE: PA and lateral views of the chest were obtained. COMPARISON: Chest radiograph dated 02/01/2023 FINDINGS: The lungs remain clear with no focal airspace opacities, pulmonary edema, pleural effusion or pneumot horax. The cardiomediastinal silhouette is normal. IMPRESSION: 1. No acute cardiopulmonary disease. Reviewed, dictated and finalized at location A.
--- NOTE | 2023-11-04 21:30 | ECG_ITS ---
Test Date: 2023-11-04 21:34:46 Measurements Intervals [place] Rate: 85 P: 36 NM: 163 QRS: 74 QRSD: 109 T: 45 QT: 362 QTc: 433 Interpretive Statements SINUS RHYTHM INCOMPLETE RIGHT BUNDLE BRANCH BLOCK [90+ ms QRS DURATION, TERMINAL R IN V1/V2, 40+ ms S IN I/aVL/V4/V5/V6] BORDERLINE ECG No previous ECG available for comparison Electronically Signed On 11-05-2023 14:57:18 CDT by Sadiq Brandon M.D.
[2023-11-04 21:33] VITALS: BP 135/85; PULSE 100; RESP 18; TEMP 36.8; O2SAT 100
[2023-11-04] MEDS: ASPIRIN 81 MG CHEWABLE TABLET 324 MG PO (21:59)
--- NOTE | 2023-11-04 22:03 | ED.CHESTPAIN ---
HPI - Chest Pain General Chief Complaint: Chest Pain Stated Complaint: chest pain, sob Time Seen by Provider: 11/04/23 21:54 Source: patient Mode of arrival: ambulatory Limitations: no limitations History of Present Illness HPI narrative: Patient presents with chest pain shortness of breath. She describes what sounds/feels like a gurgling sensation in her chest. She states it feels like the same bubbling. She has had these episodes intermittently it seemed like it was worse tonight. She denies any prior diagnosis of acid reflux but she does states it is not unusual for her to have a burning sensation in her chest like heartburn. This was especially prominent when she was but has continued beyond that intermittently. Not currently on any medications for this. No cough. Former smoker who quit in 2020. Known diagnoses of diabetes, myocardial infarction, TIA, CVA. No family history of myocardial infarction before the age of 65. She has not appreciated any association with her symptoms based on food intake. She states her symptoms often start when she is lying flat as they did tonight. No fevers. No prior immobilization or trauma. No prior DVT or PE. No hemoptysis or malignancy. No lower extremity edema either unilateral or bilateral. She does not distinctly have a primary care physician but she needs to see someone she goes to [facility]. Earlier she felt like her heart was beating out of her chest; had not yet taken any medication for pain. Related Data Home Medications Medication Instructions Recorded Confirmed cholecalciferol (vitamin D3) 50 50 mcg PO DAILY 01/14/23 01/14/23 mcg (2,000 unit) capsule escitalopram oxalate 10 mg tablet 10 mg PO DAILY 01/14/23 01/14/23 (Lexapro) vitamin#30 30 mg iron-10 cap PO 01/14/23 01/14/23 mg iron-folic acid 1 mg-omg3 capsule Allergies Allergy/AdvReac Type Severity Reaction Status Date / Time No Known Allergies Allergy Verified 05/21/23 11:15 [facility] Past Medical History Medical History Anxiety and depression Hemorrhoid IBS (irritable bowel syndrome) Sinus congestion Family History Family History Other Patient denies significant medical history Social History Social History Social History: CAffeine-none Smoking status: Former smoker Additional smoking assessment comments: quit 2020 Alcohol intake: never Substance use: never Substance use type: does not use Lack of Transportation: No Lack of Food: Never True Current Housing: I Have Housing Concerned About Future Housing: No Difficulty Paying Gas/Electric Bills: No Difficulty Paying for Meds: No Currently Unemployed: No Education: High School Diploma/GED Spiritual care concerns: No Exam Narrative: GENERAL: Well-appearing, well-nourished, and in no acute distress. HEAD: Normocephalic, atraumatic. EYES: Non injected, non icteric ENT: Nares clear, no rhinorrhea or epistaxis. NECK: Supple. CHEST: Speaking in full sentences. No respiratory distress. Lungs clear to auscultation bilaterally without wheezes, crackles, or focal consolidation. No gurgling is appreciated; particularly, unable to appreciate bowel sounds in the left chest. HEART: Regular rate and rhythm. . ABDOMEN: Soft, nondistended. EXTREMITIES: Normal range of motion. No lower extremity edema. SKIN: Warm, dry, no rash. NEURO: No focal deficits. Alert and oriented x3. PSYCH: Normal mood and affect. Course Vital Signs Vital signs: Vital Signs Temperature 98.2 F 11/04/23 21:33 Pulse Rate 100 11/04/23 21:33 Respiratory Rate 18 11/04/23 21:33 Blood Pressure 135/85 11/04/23 21:33 Pulse Oximetry 100 11/04/23 21:33 Oxygen Delivery Room Air 11/04/23 21:33 [place]
[2023-11-04 22:07] LABS: BEDSIDEPREGUCG Negative
[2023-11-04 22:08] LABS: Basophils Absolute Auto 0.1 K/mm3 (0.0-0.1); Basophils Percent Auto 0.6 % (0.2-1.2); Eosinophils Absolute Auto 0.1 K/mm3 (0-0.3); Eosinophils Percent Auto 1.1 % (0-4.4); Hematocrit 36.2 % (37.0-47.0); Immature Granulocyte Absolute 0.03 K/mm3 (0.00-0.031); Immature Granulocyte Percent A 0.3 % (0-0.5); Lymphocytes Absolute Auto 3.48 K/mm3 (0.9-3.2); Lymphocytes Percent Auto 39.5 % (18.3-44.2); Mean Corpuscular HGB Conc 33.1 g/dl (32-36); Mean Corpuscular Hemoglobin 28.4 pg (26-34); Mean Corpuscular Volume 85.6 fl (80-100); Mean Platelet Volume 9.4 fl (7.4-10.4); Monocytes Absolute Auto 0.7 K/mm3 (0.1-0.6); Monocytes Percent Auto 7.4 % (2.6-8.5); Neutrophils Absolute Auto 4.5 K/mm3 (1.3-6.7); Neutrophils Percent Auto 51.1 % (45.5-73.1); Platelet Count Result 290 k/mm3 (150-375); Red Blood Count 4.23 M/mm3 (4.2-5.4); Red Cell Distribution Width 12.4 % (11.5-14.5); White Blood Count 8.8 K/mm3 (4.5-10.0)
[2023-11-04 22:17] LABS: Alanine Aminotransferase 10 U/L (6-35); Albumin Level 4.7 g/dL (3.5-5.1); Alkaline Phosphatase 80 U/L (38-126); Anion Gap 12 mmol/L (4-12); Aspartate Amino Transferase 20 U/L (14-36); Bilirubin,Total 0.2 mg/dL (0.2-1.3); Blood Urea Nitrogen 13 mg/dL (7-17); Calcium 9.1 mg/dL (8.4-10.2); Carbon Dioxide 26 mmol/L (22-30); Chloride 98 mmol/L (98-107); Estimated CRCL calculation 100 ml/min; Estimated Glomerular Filt Rate > 60; Glucose 95 mg/dL (65-110); Lipase 76 U/L (23-300); Potassium 3.4 mmol/L (3.4-5.0); Sodium 136 mmol/L (137-145)
[2023-11-04 22:18] LABS: INR 0.9; Prothrombin Time 12.4 Seconds (11.1-14.7)
[2023-11-04 22:19] LABS: Partial Thromboplastin Time 32.1 Seconds (22.3-36.8)
[2023-11-04 22:28] LABS: Troponin I < 0.012 ng/mL (0.000-0.034)
[2023-11-04] MEDS: PANTOPRAZOLE 40 MG TABLET PO (22:31)
[2023-11-04 22:34] VITALS: PULSE 98; O2SAT 100
[2023-11-04 22:35] VITALS: BP 113/74; PULSE 97; RESP 20; O2SAT 100
[2023-11-04 22:37] LABS: BEDSIDEPREGUCG Negative
[2023-11-04 23:03] VITALS: BP 120/76
== END 2023-11-04 23:21 | disposition home or self-care (01) ==
PROVIDERS: Emergency Medicine; Emergency Provider Student in an Organized Health Care Education/Training Program
DX: K21.9 Gastro-esophageal reflux disease without esophagitis (principal); I45.10 Unspecified right bundle-branch block; K58.9 Irritable bowel syndrome, unspecified; F41.9 Anxiety disorder, unspecified; F32.A Depression, unspecified; Z87.891 Personal history of nicotine dependence; Z79.899 Other long term (current) drug therapy
CPT/HCPCS: 36415; 71046; 80053; 81025; 83690; 84484; 85025; 85610; 85730; 93005; 99284; A9270

== ENCOUNTER 2024-04-02 16:36 | Emergency (ER) | payer OTHER, SELFPAY ==
--- NOTE | ~2024-04-02 | CT_ITS ---
History: Headache PROCEDURE: CT head without contrast. COMPARISON: 09/19/2022 and 08/07/2022 TECHNIQUE: Axial imaging of the head performed from the skull base to the vertex without IV contrast. Sagittal a nd coronal reformations obtained. DLP: mGy-cm FINDINGS: The ventricles are normal in size, shape and position. There is no mass, mass effect or midline shift. There is no abnormal extra-axial fluid collection or intracranial hemorrhage. Diffuse opacification of the bilateral ethmoid sinuses with mucoperiosteal thickening of the left max illary sinus. Remaining paranasal sinuses are otherwise unremarkable. The mastoid air cells are well aerated. No acute displaced fractures within the overlying cranium. Impression: No acute intracranial hemorrhage or suspicious mass effect. Significant inflammatory sinus disease, as detailed above. Of note, previous examinations from 2022 (where patient also reported headaches) did not demonstrate inflammatory sinus disease. Nonemergent follow-up with MRI is suggested for further evaluation, unless already performed. Reviewed, dictated and finalized at location A. HOSPICE Impression: No acute intracranial hemorrhage or suspicious mass effect. Significant inflammatory sinus disease, as detailed above. Of note, previous examinations from 2022 (where patient also reported headaches ) did not demonstrate inflammatory sinus disease. Nonemergent follow-up with MRI is suggested for further evaluation, unless alre danielle performed.
[2024-04-02 16:43] VITALS: BP 142/83; PULSE 99; RESP 16; TEMP 36.9; O2SAT 100
--- NOTE | 2024-04-02 19:32 | ED_ITS ---
HPI - General Adult General Chief complaint: Headache Stated complaint: headache Time Seen by Provider: 04/02/24 19:04 History of Present Illness HPI narrative: Patient is a 78-year-old female who presents emergency department this evening complaining of right-sided headache, nasal congestion and bilateral ear pain. Patient states that she feels as though her ears are muffled. Admits that she is recently getting over cold. Denies any fevers or chills at home. Admits she has been having some body aches mainly along her neck and upper back and is unsure if this is due to her chronic neck pain which she sees a chiropractor for or due to some virus. Admits that she finished a 10 day course of amoxicillin recently for strep throat. Denies any recent falls or trauma. Denies any vision changes, focal weakness, numbness and/or tingling. Patient rates the headache 4/10 on the pain scale and denies any sharp sudden onset worst headache of her life sensation. No additional symptoms or concerns at this time. Related Data Home Medications ?Medication ?Instructions ?Recorded ?Confirmed ?Last Taken ?Type cholecalciferol (vitamin D3) 50 50 mcg PO DAILY 01/14/23 01/14/23 Unknown History mcg (2,000 unit) capsule escitalopram oxalate 10 mg tablet 10 mg PO DAILY 01/14/23 01/14/23 Unknown History (Lexapro) vitamin#30 30 mg iron-10 cap PO 01/14/23 01/14/23 Unknown History mg iron-folic acid 1 mg-omg3 capsule Allergies Allergy/AdvReac Type Severity Reaction Status Date / Time No Known Allergies Allergy Verified 05/21/23 11:15 Review of Systems Review of Systems: All systems are reviewed and are negative unless stated otherwise in the HPI. [facility] Past Medical History Medical History Sinus congestion Anxiety and depression IBS (irritable bowel syndrome) Hemorrhoid Family History Family History Other Patient denies significant medical history Social History Social History Social History: CAffeine-none Smoking status: Former smoker Additional smoking assessment comments: quit 2020 Alcohol intake: never Substance use: never Substance use type: does not use Lack of Transportation: No Lack of Food: Never True Current Housing: I Have Housing Concerned About Future Housing: No Difficulty Paying Gas/Electric Bills: No Difficulty Paying for Meds: No Currently Unemployed: No Education: High School Diploma/GED Spiritual care concerns: No Exam Narrative: General: Alert, awake, afebrile, in no acute distress. HEENT: PERRL, no rhinorrhea, no post nasal drip, oropharynx clear. Neck: Trachea midline, no JVD, no lymphadenopathy. Cardiovascular: Regular rate and rhythm, no murmurs, rubs or gallops, no peripheral edema. Respiratory: Clear to auscultation bilaterally, no tachypnea, no wheezing, no rhonchi, no rubs, no respiratory distress. Abdomen: Soft, nontender, nondistended, no rebound, no guarding, no peritoneal signs. Musculoskeletal: No joint swelling or deformity, normal muscle tone. Skin: No rashes or petechia, no signs of infection. Psychiatric: Alert and oriented, normal behavior and judgment for situation. Neurological: Alert and oriented to person, place, and time. Follows all commands. 5/5 motor strength bilateral upper lower extremity, cranial nerves 2- 12 grossly intact, sensation intact and equal in bilateral upper and lower extremity, speech is clear and fluent, gait intact and normal. Course Vital Signs Vital signs: Vital Signs Temperature 98.5 F 04/02/24 16:43 Pulse Rate 99 04/02/24 16:43 Respiratory Rate 16 04/02/24 16:43 Blood Pressure 142/83 H 04/02/24 16:43 Pulse Oximetry 100 04/02/24 16:43 Temperature 98.5 F 04/02/24 16:43 Pulse Rate 99 04/02/24 16:43 Respiratory Rate 16 04/02/24 16:43 Blood Pressure 142/83 H 04/02/24 16:43 Pulse Oximetry 100 04/02/24 16:43 Medical Decision Making MDM Narrative Medical decision making narrative: The patient was evaluated by myself in the emergency department. History is obtained from patient who is an independent historian and physical exam was performed. External medical records were reviewed at this time. Patient refused IV start and migraine cocktail at this time stating that her headache is very mild at this time after she took 1 g of Tylenol this morning. Patient is requesting a CT brain at this time. Imaging studies obtained included CT Brain without IV contrast which was independently interpreted by me revealing diffuse opacification of the bilateral ethmoid sinuses with mucoperiosteal thickening of the left maxillary sinus, which is pending final radiology interpretation. Patient was informed of these findings at bedside and provided with a printout of her CT report. She was informed that she will be placed on Augmentin for her sinusitis and she will need to follow-up with an ENT physician. Patient did inform me that she ready has an appointment scheduled with ENT this week. Differential diagnosis considerations include tension headache, migraine headache, otitis media, acute viral syndrome, dehydration. Comorbidities impacting this visit include none. I have evaluated and discussed social determinants of health with the patient that could potentially impact subsequent diagnosis and treatment plans. On repeat assessment of the patient, reevaluation revealed that the patient is doing well and is in no acute distress. Patient symptoms have remained stable since she arrived to our emergency department. Repeat vital signs were all reviewed and noted to be stable. Differential diagnosis and treatment plan were discussed with the patient at bedside. Patient agrees with discussion and after shared medical decision making agrees with discharge. All questions were answered to the patient's satisfaction. Patient will follow up with her PCP/ENT in 3-5 days. Script for Augmentin was sent to patient's pharmacy to take as prescribed. Patient was provided with strict return precautions and instructed to return to the emergency department if any new or worsening symptoms develop. The patient was discharged in stable condition. Vital Signs Vital Signs: Vital Signs Temperature 98.5 F 04/02/24 16:43 Pulse Rate 99 04/02/24 16:43 Respiratory Rate 16 04/02/24 16:43 Blood Pressure 142/83 H 04/02/24 16:43 Pulse Oximetry 100 04/02/24 16:43 Temperature 98.5 F 04/02/24 16:43 Pulse Rate 99 04/02/24 16:43 Respiratory Rate 16 04/02/24 16:43 Blood Pressure 142/83 H 04/02/24 16:43 Pulse Oximetry 100 04/02/24 16:43 Discharge Plan Discharge Clinical Impression: Headache, Sinusitis Patient Disposition: Home, Self-Care Condition: Improved Instructions: Antibiotic Form, Sinusitis (ED), Acute Headache (ED) Additional Instructions: Please follow-up with your family doctor within the next 3-5 days. You also instructed to follow-up with an ENT physician as scheduled for upcoming appointment this week. Return to the emergency department if any new or worsening symptoms develop. Maintain your oral hydration by drinking lots of fluids. Take the prescribed antibiotic for sinus infection as instructed. Patient Language: [place] Prescriptions: New amoxicillin-pot clavulanate 875-125 mg tablet 1 tablet PO Q12H 7 Days Qty: 14 0RF No Action fluticasone propionate [Flonase Allergy Relief] 50 mcg/actuation spray,suspension 1 - 2 spray intranasal BID Qty: 16 1RF Rx Instructions: administer into each nostril. Aim back/up/out escitalopram oxalate [Lexapro] 10 mg tablet 10 mg PO DAILY cholecalciferol (vitamin D3) 50 mcg (2,000 unit) capsule 50 mcg PO DAILY PNV #[id number] 30 mg iron-10 mg iron-1 mg capsule PO azelastine 137 mcg (0.1 %) aerosol,spray 1 - 2 spray intranasal Q12H Qty: 30 0RF Rx Instructions: administer into each nostril omeprazole 20 mg tablet,delayed release (DR/EC) 20 mg PO DAILY Qty: 30 0RF meclizine 25 mg tablet 25 mg PO BID PRN (Reason: dizziness) Qty: 14 0RF Follow-up/Referrals: PHYSICIAN,ELEVATOR REPAIR MECHANIC [Primary Care Provider] - Taye Mata MD [Physician] - 3 Days Time of Disposition: 20:01
[2024-04-02] MEDS: ACETAMINOPHEN 325 MG TABLET 650 MG (20:09)
== END 2024-04-02 20:56 | disposition home or self-care (01) ==
PROVIDERS: Emergency Provider Emergency Medicine
DX: J32.9 Chronic sinusitis, unspecified (principal); R51.9 Headache, unspecified; F41.9 Anxiety disorder, unspecified; F32.A Depression, unspecified; Z87.891 Personal history of nicotine dependence; Z79.899 Other long term (current) drug therapy
CPT/HCPCS: 70450; 99284; A9270

== ENCOUNTER 2024-07-31 08:33 | Outpatient (CLI) | payer OTHER, SELFPAY ==
--- NOTE | ~2024-07-31 | US_ITS ---
EXAMINATION TYPE: US breast LT limited COMPARISON: NONE REASON FOR STUDY: BREAST PAIN TECHNIQUE: Targeted sonographic evaluation of the left breast was performed. INTERPRETATION: There is a heterogenous background echotexture. There is no mass; either cystic or solid seen in the breast. IMPRESSION: Negative BI-RADS CATEGORY: BI-RADS 1: Negative Reviewed, dictated and finalized at [facility].
--- OUTSIDE RECORDS SUMMARY | 2024-07-31 08:40 | XMS_ITS | Data Portability ---
Author Organization 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 Patient will come back in a year unless there are new symptoms. [email or web address] Not available 07/24/2024 08:28:51 Plan of Treatment Reminders Order Date Submit Date Provider Last Modified By Organization Details Last Modified Time Details Appointments None recorded. Lab TSH, serum or plasma 2024 025 [facility] (Lab), [address], [place], [address], 5 14:56:48 CBC w/ auto diff 2024 025 [facility] (Lab), [address], [place], [address], 5 14:56:45 CMP, serum or plasma 2024 025 [facility] (Lab), [address] [place], [address], 5 14:56:46 lipid panel, blood 2024 025 [facility] (Lab), [address] [place], [address], 5 14:56:46 HbA1c (hemoglobin A1c), blood 2024 025 [facility] (Lab), [address], [place], [address], 5 14:56:48 HBsAg (hepatitis B surface Ag), serum 2024 025 [facility] (Lab), [address], [place], [address], 5 14:56:47 unlisted lab - women's health swab plus, EDGAR 2024 025 [facility] (Lab), [address], [place], [address], 5 14:35:06 hbcab (hepatitis B core Ab) igm, serum 2023 024 [facility] (Lab), [address], [place], [address], 4 14:13:52 HBsAg (hepatitis B surface Ag), serum 2023 024 [facility] (Lab), [address], [place], [address], 4 14:13:46 hepatitis C virus Ab, serum 2023 024 [facility] (Lab), [address], [place], [address], 4 14:13:48 HIV 1+2 AB + HIV 1 p24 Ag, qualitative immunoassay , serum 2023 024 [facility] (Lab), [address] [place], [address], 4 14:13:47 RPR (rapid plasma reagin), serum 2023 024 [facility] (Lab), [address] [facility], [place], [address], 4 14:13:51 test, urine 2023 [facility], [address], [address], [place], [address], 4 10:31:43 dhea-sulfat e, serum 2023 [facility] (Lab), [address] [place], [address], 4 14:13:51 hormone panel, serum or plasma 2023 [facility] (Lab), [address] [place], [address], 4 14:13:49 progesteron e, serum 2023 024 [facility] (Lab), [address] [place], [address], 4 14:13:48 prolactin, serum 2023 024 [facility] (Lab), [address] [place], [address], 4 14:13:49 shbg (sex hormone-bin ding globulin), serum 2023 024 [facility] (Lab), [address] [place], [address], 4 14:13:50 TSH, serum or plasma 2023 024 [facility] (Lab), [address] [place], [address], 4 14:13:50 testosteron e free/testos terone total, ratio, serum 2023 024 [facility] (Lab), [address], [place], [address], 4 14:13:52 Referral None recorded. Procedures None recorded. Surgeries None recorded. Imaging US, breast, unilateral - Persistent pain of left breast at 2 o'clock position 2024 025 [facility], [address], [place], [address], 5 04:02:28 US, pelvis 2023 [address], [address], [place], [address], 4 22:01:51 US, transvagina l [address]23 [address], [address], [place], [address], 4 22:01:51 US, pelvis, complete 2023 024 [facility], [address], [place], [address], 5 05:01:23 Medication Orders None recorded. Patient TargetsNo targets recorded. Patient InstructionsNo instructions recorded. Reason for Referral None Reported. Results Created Date Observation Date Name Description Value Unit Range Abnormal Flag Note LastModifiedBy Organization Detail LastModifiedTime 10/14/19 24 10/14/2023 CT/GC AND TRICH OMONA S VAGIN GAGAN (RRNA ), URINE chlamydia trachomatis, PCR Negati ve negati ve Not Available [facility] (Lab) [address], [place], [address], 10/15/2023 13:30:49 10/14/19 24 10/14/2023 CT/GC AND TRICH OMONA S VAGIN GAGAN (RRNA ), URINE neisseria gonorrhoeae, PCR Negati ve negati ve Not Available [facility] (Lab) [address] [facility], [place], [address], 10/15/2023 13:30:49 10/14/19 24 10/14/2023 CT/GC AND TRICH OMONA S VAGIN GAGAN (RRNA ), URINE trichomonas vaginalis ribosomal RNA (rrna) Negati ve negati ve Not Available [facility] (Lab) [address] [facility], [place], [address], 10/15/2023 13:30:49 10/14/19 24 10/14/2023 HEPAT ITIS B SURFA CE ANTIG EN hepatitis B surface antigen Non-re active non-re active This assay was perfo rmed using [employer] ratio n reage nts and test kits. Value s obtai seamus with other assay metho ds or kits canno t be used inter ortiz eably . Not Available [facility] (Lab) [address] [facility], [place], [address], 10/20/2023 14:13:46 10/14/19 24 10/14/2023 HIV 1/2 ANTIG EN/AN TIBOD Y, REFLE X CONFI RMATI ON HIV antigen/anti body Nonrea ctive nonrea ctive HIV-1 antig en and HIV-1 /HIV- 2 antib odies were not detec georgiana. No labor atory evide nce of HIV infec tion. Not Available [facility] (Lab) [address] [facility], [place], [address], 10/20/2023 14:13:47 10/14/19 24 10/14/2023 HEPAT ITIS C ANTIB TYSON SCREE N, REFLE X TO CONFI RMATI ON hepatitis C antibody Non-re active non-re active Antib odies to HCV Not Detec georgiana, does not exclu de the possi bilit y of expos ure to HCV. Not Available [facility] (Lab) [address] [facility], [place], [address], 10/20/2023 14:13:47 10/14/19 24 10/14/2023 PROGE STERO NE progesterone 0.54 NG/mL This assay was perfo rmed using [employer] reage nts and test kits. Value s obtai seamus with other assay metho ds or kits canno t be used [facility] . Femal e Proge stero ne Range s: Folli cular phasE 0.06- 0.89 ng/mL Ovula tion phasE 0.12- 12.00 ng/mL Lutea l phasE 1.83- 23.90 ng/mL Postm enopa usal <0.05 -0.13 ng/mL Healt hy Pregn ant Women 1st Trime ster 11.0- 44.30 2nd Trime ster 25.40 -83.3 0 3rd Trime ster 58.70 -214. 00 Not Available [facility] (Lab) [address] [place], [address], 10/20/2023 14:13:48 10/14/19 24 10/14/2023 PROLA CTIN prolactin, total 10.90 NG/mL 4.79-2 3.30 This assay was perfo rmed using [employer] reage nts and test kits. Value s obtai seamus with other assay metho ds or kits canno t be used [facility] . Not Available [facility] (Lab) [address] [place], [address], 10/20/2023 14:13:48 10/14/19 24 10/14/2023 FSH, LH, ESTRA DIOL estradiol 29.9 pg/mL This assay was perfo rmed using [employer] reage nts and test kits. Value s obtai seamus with other assay metho ds or kits canno t be used [facility] . Femal e Estra diol Range s: Folli cular phasE 12.4- 233 pg/mL Ovula tion phasE 41.0- 398 pg/mL Lutea l phasE 22.3- 341 pg/mL Postm enopa usal <5-13 8 pg/mL Healt hy Pregn ant Women 1st Trime ster 154-3 243 pg/mL 2nd Trime ster 1561- 78661 pg/mL 3rd Trime ster 8525- >3000 0 pg/mL Not Available [facility] (Lab) [address] [facility], [place], [address], 10/20/2023 14:13:49 10/14/19 24 10/14/2023 FSH, LH, ESTRA DIOL FSH 5.5 mIU/m L This assay was perfo rmed using [employer] n reage nts and test kits. Value s obtai seamus with other assay metho ds or kits canno t be used inter ortiz eably . Femal es Folli cular : 3.5-1 2.5 mIU/m L Ovula tion: 4.7-2 1.5 mIU/m L Lutea l: 1.7-7 .7 mIU/m L Postm enopa use: 25.8- 134.8 mIU/m L Not Available [facility] (Lab) [address] [facility], [place], [address], 10/20/2023 14:13:49 10/14/19 24 10/14/2023 FSH, LH, ESTRA DIOL LH 7.1 mIU/m L This assay was perfo rmed using [employer] reage nts and test kits. Value s obtai seamus with other assay metho ds or kits canno t be used inter ortiz eably . Femal es Mid-F ollic ular: 2.4-1 2.6 mIU/m L Mid-C ycle: 14.0- 95.6 mIU/m L Mid-L uteal : 1.0-1 1.4 mIU/m L Postm enopa use: 7.7-5 8.5 mIU/m L Not Available [facility] (Lab) [address] [place], [address], 10/20/2023 14:13:49 10/14/19 24 10/14/2023 HUMAN SEX HORMO NE CATHY NG GLOBU DEDRICK sex hormone binding globulin 32.3 nmole s/L 18.2-1 35.5 Not Available [facility] (Lab) [address] [facility], [place], [address], 10/20/2023 14:13:49 10/14/19 24 10/14/2023 TSH, REFLE X FREE T4 TSH 0.65 uIU/m L 0.30-5 .33 Not Available [facility] (Lab) [address] [facility], [place], [address], 10/20/2023 14:13:50 10/14/19 24 10/14/2023 DHEA SULFA TE DHEA-sulfate 388 ug/dL Femal e Range s Age(y ) Range (ug/d L) 10-15 34-28 0 15-20 65-36 8 20-25 148-4 07 25-35 99-34 0 35-45 61-33 7 45-55 35-25 6 55-65 19-20 5 65-75 9-246 > 75 12-15 4 Not Available [facility] (Lab) [address] [facility], [place], [address], 10/20/2023 14:13:51 10/14/19 24 10/14/2023 RPR SCREE N, REFLE X TITER /CONF IRMAT ION RPR screen Nonrea ctive nonrea ctive Not Available [facility] (Lab) [address] [facility], [place], [address], 10/20/2023 14:13:51 10/14/19 24 10/14/2023 HEPAT ITIS B CORE, IGM hepatitis B core IgM antibody Non-re active non-re active IgM anti- HBc not detec georgiana. Does not exclu de the possi bilit y of expos ure to or infec tion with HBV. Not Available [facility] (Lab) [address], [place], [address], 10/20/2023 14:13:52 10/14/19 24 10/14/2023 TESTO STERO NE, TOTAL AND FREE, SERUM (LC-M S/MS) testosterone , total 25 NG/dL 2-45 For addit ional infor ferdinand gallagher e refer to http: //darlin pappas.que stdia gnost ics.c om/fa q/ Total Testo stero neLCM SMSFA Q165 (This link is being provi ded for infoaminah babin/ educa gege l purpo ses only. ) This test was devel oped and its megan tical perfo rmanc e gina cteri stics have been deter mined by [employer] [place]. It has not been clear ed or appro brendon by the U.S. Food and Drug Admin istra tion. This assay has been valid ated pursu ant to the CLIA regul ation s and is used for clini jami purpo ses. Not Available [facility] (Lab) [address] [facility], [place], [address], 10/20/2023 14:13:52 10/14/19 24 10/14/2023 TESTO STERO NE, TOTAL AND FREE, SERUM (LC-M S/MS) testosterone , free 2.5 pg/mL 0.1-6. 4 This test was devel oped and its megan tical perfo rmanc e gina cteri stics have been deter mined by [employer] [place]. It has not been clear ed or appro brendon by the U.S. Food and Drug Admin istra tion. This assay has been valid ated pursu ant to the CLIA regul ation s and is used for clini jami purpo ses. Perfo rming Organ izati on [facility] asmanmadison n: Site ID: [id number] Name: [employer] [place] Insti tute Addre ss: [id number] [facility] [employer] [place], [place] Direc tor: Dylan Del Rio MD PhD Not Available [facility] (Lab) [address] [facility], [place], [address], 10/20/2023 14:13:52 10/14/19 24 10/14/2023 pregn sohail test, urine HCG negati ve Not Available [place] [address], [place], [address], 10/14/2023 10:31:30 07/25/19 25 07/24/2024 WOMEN 'S HEALT H SWAB PLUS, EDGAR bacterial vaginosis (bv), tma Negati ve negati ve Not Available [facility] (Lab) [address] [place], [address], 07/25/2024 14:35:06 07/25/19 25 07/24/2024 [facility] ivana species, tma Negati ve negati ve Not Available [facility] (Lab) [address] [facility], [place], [address], 07/25/2024 14:35:06 07/25/19 25 07/24/2024 [facility] ivana glabrata, tma Negati ve negati ve Not Available [facility] (Lab) [address] [place], [address], 07/25/2024 14:35:06 07/25/19 25 07/24/2024 [facility] trichomonas vaginalis, tma Negati ve negati ve Not Available [facility] (Lab) [address] [place], [address], 07/25/2024 14:35:06 07/25/19 25 07/24/2024 [facility] chlamydia trachomatis, PCR Negati ve negati ve Not Available [facility] (Lab) [address] [place], [address], 07/25/2024 14:35:06 07/25/19 25 07/24/2024 [facility] neisseria gonorrhoeae, PCR Negati ve negati ve Bacte rial vagin osis detec ts the follo wing bacte elizabeth assoc iated with bacte rial vagin osis (BV): Lacto bacil sandy (L. gasse ri, L. crisp atus and L. jense peterson), Gardn erell a vagin gagan, and Atopo bium vagin ae. A singl e quali tativ e resul t is repor georgiana base on instr ument softw are to deter mine BV posit joi or negat joi statu s. The [facility] speci es group tests for C. albic ans, C. tropi calis , C. parap esdras is, C. dubli niens is. Testi ng is perfo rmed using the Trans cript ion [employer] georgiana Ampli ficat ion metho d. Tests for Rafia da glabr shaquille, Trich omona s vagin gagan, Chlam ydia trach omati s, and Neiss eria gonor rhoea e are also inclu ded in this panel . Not Available [facility] (Lab) [address] [facility], [place], [address], 07/25/2024 14:35:06 07/25/19 25 07/24/2024 CBC W/DIF F WBC 5.4 10'3/ uL 3.5-10 .5 Not Available [facility] (Lab) [address] [place], [address], 07/25/2024 14:56:45 07/25/19 25 07/24/2024 CBC W/DIF F RBC 4.44 10'6/ uL (based on docume nted legal sex) 3.80-5 .20 Not Available [facility] (Lab) [address] [place], [address], 07/25/2024 14:56:45 07/25/19 25 07/24/2024 CBC W/DIF F HGB 12.2 g/dL (based on docume nted legal sex) 11.6-1 5.4 Not Available [facility] (Lab) [address] [place], [address], 07/25/2024 14:56:45 07/25/19 25 07/24/2024 CBC W/DIF F HCT 38.7 % (based on docume nted legal sex) 34.0-4 5.0 Not Available [facility] (Lab) [address] [facility], [place], [address], 07/25/2024 14:56:45 07/25/19 25 07/24/2024 CBC W/DIF F MCV 87.2 fL 80.0-9 9.0 Not Available [facility] (Lab) [address] [facility], [place], [address], 07/25/2024 14:56:45 07/25/19 25 07/24/2024 CBC W/DIF F MCH 27.5 pg 27.0-3 4.0 Not Available [facility] (Lab) [address] [facility], [place], [address], 07/25/2024 14:56:45 07/25/19 25 07/24/2024 CBC W/DIF F MCHC 31.5 g/dL 32.0-3 5.5 low Not Available [facility] (Lab) [address] [facility], [place], [address], 07/25/2024 14:56:45 07/25/19 25 07/24/2024 CBC W/DIF F RDW 12.5 % 11.0-1 5.0 Not Available [facility] (Lab) [address] [facility], [place], [address], 07/25/2024 14:56:45 07/25/19 25 07/24/2024 CBC W/DIF F plt 334 10'3/ uL 150-40 0 Not Available [facility] (Lab) [address], [place], [address], 07/25/2024 14:56:45 07/25/19 25 07/24/2024 CBC W/DIF F MPV 10.3 fL 8.8-12 .1 Not Available [facility] (Lab) [address] [place], [address], 07/25/2024 14:56:45 07/25/19 25 07/24/2024 CBC W/DIF F neutrophils 45.4 % 34.0-7 3.0 Not Available [facility] (Lab) [address] [place], [address], 07/25/2024 14:56:45 07/25/19 25 07/24/2024 CBC W/DIF F lymphocytes 45.5 % 15.0-5 0.0 Not Available [facility] (Lab) [address] [place], [address], 07/25/2024 14:56:45 07/25/19 25 07/24/2024 CBC W/DIF F monocytes 5.8 % 1.0-15 .0 Not Available [facility] (Lab) [address] [place], [address], 07/25/2024 14:56:45 07/25/19 25 07/24/2024 CBC W/DIF F eosinophils 2.2 % 0.0-8. 0 Not Available [facility] (Lab) [address] [place], [address], 07/25/2024 14:56:45 07/25/19 25 07/24/2024 CBC W/DIF F basophils 0.7 % 0.0-2. 0 Not Available [facility] (Lab) [address] [place], [address], 07/25/2024 14:56:45 07/25/19 25 07/24/2024 CBC W/DIF F immature granulocytes 0.4 % no define d refere nce range Immat ure Granu locyt es (IG) repre sents autom ated enume ratio n of Metam yeloc ytes, Myelo cytes and Promy elocy pedrito when IG is < 5%. Blast s are not inclu ded in IG and repor georgiana separ ately if prese nt. Not Available [facility] (Lab) [address] [place], [address], 07/25/2024 14:56:45 07/25/19 25 07/24/2024 CBC W/DIF F absolute neutrophils 2.5 10'3/ uL 1.5-8. 0 Not Available [facility] (Lab) [address] [place], [address], 07/25/2024 14:56:45 07/25/19 25 07/24/2024 CBC W/DIF F absolute lymphocytes 2.5 10'3/ uL 1.0-4. 0 Not Available [facility] (Lab) [address] [place], [address], 07/25/2024 14:56:45 07/25/19 25 07/24/2024 CBC W/DIF F absolute monocytes 0.3 10'3/ uL 0.2-1. 0 Not Available [facility] (Lab) [address] [place], [address], 07/25/2024 14:56:45 07/25/19 25 07/24/2024 CBC W/DIF F absolute eosinophils 0.1 10'3/ uL 0.0-0. 6 Not Available [facility] (Lab) [address] [place], [address], 07/25/2024 14:56:45 07/25/19 25 07/24/2024 CBC W/DIF F absolute basophils 0.0 10'3/ uL 0.0-0. 3 Not Available [facility] (Lab) [address] [place], [address], 07/25/2024 14:56:45 07/25/19 25 07/24/2024 CBC W/DIF F absolute immature granulocytes 0.0 10'3/ uL 0.00-0 .10 Refer ence range s for nonbi nary/ inter sex or unspe cifie d gende r patie nts have not been estab lishe d. Pleas e refer to the follo wing table for range s estab lishe d for cisge nder patie nts and evalu ate in the clini jami roseanne xt of the indiv idual patie nt: https ://yossi rose book. nm.or g/gen derx Not Available [facility] (Lab) [address] [place], [address], 07/25/2024 14:56:45 07/25/19 25 07/24/2024 LIPID PANEL ,AMA (LDL- CALC) total cholesterol 158 mg/dL 0-199 Not Available [facility] (Lab) [address] [place], [address], 07/25/2024 14:56:46 07/25/19 25 07/24/2024 LIPID PANEL ,AMA (LDL- CALC) triglyceride s 63 mg/dL 0-150 NCEP Refer ence Value s for Trigl yceri nina: Roxana l: <150 mg/dL Borde rline High: 150 - 199 mg/dL High: 200 - 499 mg/dL Very High: >/= 500 mg/dL Not Available [facility] (Lab) [address] [place], [address], 07/25/2024 14:56:46 07/25/19 25 07/24/2024 LIPID PANEL ,AMA (LDL- CALC) HDL cholesterol 48 mg/dL >40 Not Available [facility] (Lab) [address] [place], [address], 07/25/2024 14:56:46 07/25/19 25 07/24/2024 LIPID PANEL ,AMA (LDL- CALC) LDL cholesterol 95 mg/dL 0-99 Cutof f value s recom ezequeil d by the Natmadison nal Bushra st[employer] l Educa tion Progr am: KAUSHIK ABLE: Bushra stero l <200 mg/dL LDL <100 mg/dL BORDE RLINE : Bushra stero l 200-2 39 mg/dL LDL 101-1 59 mg/dL HIGHE R RISK: Bushra stero l >240 mg/dL LDL >160 mg/dL , HDL <40 mg/dL Not Available [facility] (Lab) [address] [place], [address], 07/25/2024 14:56:46 07/25/1907/24/2024 LIPID PANEL ,AMA (LDL- CALC) non-HDL cholesterol 110 mg/dL no refere nce range A reaso nable goal for non-H DL bushra stero l is one that is 30 mg/dL highe r than the LDL bushra stero l goal. Not Available [facility] (Lab) [address], [place], [address], 07/25/2024 14:56:46 07/25/1907/24/2024 LIPID PANEL ,AMA (LDL- CALC) chol/HDL ratio 3.3 . 0.0-5. 0 On July 14, 2022, [facility] labor atori jodee ortiz ed the equat ion for calcu latin g estim ated low-d ensit y lipop rotei n-cho leste rol (LDL- C) from the Fried mariya equat ion to the Radha n/Hop kins equat ion. This new equat ion is only valid for lipid panel s with trigl yceri nina < 400 mg/dL . Felix ellsworth have demon strat ed that this new equat ion will impro ve the accur acy of LDL-C , espec ially in scena resendiz when LDL-C angelina ntrat ions are relat ively low (< 100 mg/dL ), trigl yceri nina are eleva georgiana, or patie nt is non-f astin g. Refer ences : - Radha pappas, Al Larkin, Vicente Calle , [facility] minoo wolff, Emigdio Alfaro, Emigdio andrade, Demarcus [facility] , and [employer] . 2013. Comp ariso n of a Novel Metho d vs the Fried mariya Equat ion for Estim ating Low-D ensit y Lipop rotei n Bushra stero l Level s from the Stand quang Lipid Profi le. BRETT: The Journ al of the Ameri can Medic al Assoc iatio n 310 (19): 2060- . - Brissa bal V, Shannen J, Maya bal A, John M, Yoselin patel R, Markus bal E, Richard reddy RS, Barron SR, Radha n SS. Fast ing Versu s Nonfa sting and Low-D ensit y Lipop rotei n Bushra stero l Accur acy. Circu latio n. 2017Mar 23;137 (1):1 0-19. Not Available [facility] (Lab) [address] [facility], [place], [address], 07/25/2024 14:56:46 07/25/19 25 07/24/2024 CMP(C OMPRE HENSI VE METAB OLIC PANEL ) sodium 138 mmol/ L 133-14 6 Not Available [facility] (Lab) [address] [facility], [place], [address], 07/25/2024 14:56:46 07/25/19 25 07/24/2024 CMP(C OMPRE HENSI VE METAB OLIC PANEL ) potassium 4.1 mmol/ L 3.5-5. 1 Not Available [facility] (Lab) [address] [facility], [place], [address], 07/25/2024 14:56:46 07/25/19 25 07/24/2024 CMP(C OMPRE HENSI VE METAB OLIC PANEL ) chloride 104 mmol/ L 98-107 Not Available [facility] (Lab) [address] [place], [address], 07/25/2024 14:56:46 07/25/19 25 07/24/2024 CMP(C OMPRE HENSI VE METAB OLIC PANEL ) carbon dioxide 29 mmol/ L 21-31 Not Available [facility] (Lab) [address] [place], [address], 07/25/2024 14:56:46 07/25/19 25 07/24/2024 CMP(C OMPRE HENSI VE METAB OLIC PANEL ) anion gap 5 mmol/ L 4-13 Not Available [facility] (Lab) [address] [place], [address], 07/25/2024 14:56:46 07/25/19 25 07/24/2024 CMP(C OMPRE HENSI VE METAB OLIC PANEL ) blood urea nitrogen 16 mg/dL 7-25 Not Available [facility] (Lab) [address], [place], [address], 07/25/2024 14:56:46 07/25/19 25 07/24/2024 CMP(C OMPRE HENSI VE METAB OLIC PANEL ) creatinine 0.56 mg/dL 0.60-1 .30 low Not Available [facility] (Lab) [address] [facility], [place], [address], 07/25/2024 14:56:46 07/25/19 25 07/24/2024 CMP(C OMPRE HENSI VE METAB OLIC PANEL ) egfrcr (CKD-epi 2020) >90 mL/mi n/1.7 3_m2 >=60 Not Available [facility] (Lab) [address] [facility], [place], [address], 07/25/2024 14:56:46 07/25/19 25 07/24/2024 CMP(C OMPRE HENSI VE METAB OLIC PANEL ) calcium 9.2 mg/dL 8.3-10 .5 Not Available [facility] (Lab) [address] [facility], [place], [address], 07/25/2024 14:56:46 07/25/19 25 07/24/2024 CMP(C OMPRE HENSI VE METAB OLIC PANEL ) glucose 83 mg/dL 70-100 Not Available [facility] (Lab) [address] [facility], [place], [address], 07/25/2024 14:56:46 07/25/19 25 07/24/2024 CMP(C OMPRE HENSI VE METAB OLIC PANEL ) protein, total 7.1 g/dL 6.4-8. 3 Not Available [facility] (Lab) [address] [facility], [place], [address], 07/25/2024 14:56:46 07/25/19 25 07/24/2024 CMP(C OMPRE HENSI VE METAB OLIC PANEL ) albumin 4.5 g/dL 3.5-5. 0 Not Available [facility] (Lab) [address] [place], [address], 07/25/2024 14:56:46 07/25/19 25 07/24/2024 CMP(C OMPRE HENSI VE METAB OLIC PANEL ) ALT 6 units /L 9-43 low Not Available [facility] (Lab) [address] [facility], [place], [address], 07/25/2024 14:56:46 07/25/19 25 07/24/2024 CMP(C OMPRE HENSI VE METAB OLIC PANEL ) alkaline phosphatase 71 units /L 34-104 Not Available [facility] (Lab) [address] [facility], [place], [address], 07/25/2024 14:56:46 07/25/19 25 07/24/2024 CMP(C OMPRE HENSI VE METAB OLIC PANEL ) AST 9 units /L 13-39 low Not Available [facility] (Lab) [address] [place], [address], 07/25/2024 14:56:46 07/25/19 25 07/24/2024 CMP(C OMPRE HENSI VE METAB OLIC PANEL ) bilirubin, total 0.4 mg/dL 0.2-1. 2 Not Available [facility] (Lab) [address] [place], [address], 07/25/2024 14:56:46 07/25/19 25 07/24/2024 HBSAG /HCV/ HIV/R [place] hepatitis B surface antigen Non-re active non-re active This assay was perfo rmed using [employer] reage nts and test kits. Value s obtai seamus with other assay metho ds or kits canno t be used inter ortiz eably . Not Available [facility] (Lab) [address] [facility], [place], [address], 07/25/2024 14:56:47 07/25/19 25 07/24/2024 HBSAG /HCV/ HIV/R [place] hepatitis C antibody Non-re active non-re active Antib odies to HCV Not Detec georgiana, does not exclu de the possi bilit y of expos ure to HCV. Not Available [facility] (Lab) [address] [facility], [place], [address], 07/25/2024 14:56:47 07/25/19 25 07/24/2024 HBSAG /HCV/ HIV/R [place] HIV antigen/anti body Nonrea ctive nonrea ctive HIV-1 antig en and HIV-1 /HIV- 2 antib odies were not detec georgiana. No labor atory evide nce of HIV infec tion. Not Available [facility] (Lab) [address], [place], [address], 07/25/2024 14:56:47 07/25/19 25 07/24/2024 HBSAG /HCV/ HIV/R NJ RPR qualitative Nonrea ctive nonrea ctive Not Available [facility] (Lab) [address], [place], [address], 07/25/2024 14:56:47 07/25/19 25 07/24/2024 TSH, REFLE X FREE T4 TSH 1.06 uIU/m L 0.30-5 .33 Not Available [facility] (Lab) [address] [place], [address], 07/25/2024 14:56:48 07/25/19 25 07/24/2024 HEMOG LOBIN A1C hemoglobin A1C 5.2 % 4.0-5. 6 The Ameri can [employer] i[employer] n recom mends that a prima ry goal of thera py shoul d be a HBA1C of < 7% and that physi cians shoul d reeva luate the treat ment regim en in patie nts with HBA1C value s consi stent ly > 8%. <5.7% Roxana l 5.7 - 6.4% Incre ased risk for diabe pedrito >=6.5 % Diagn ostic of diabe pedrito <7.0% Goal of thera py >8.0% Nimishaio elyse arevalo Not Available [facility] (Lab) [address], [place], [address], 07/25/2024 14:56:48 10/19/19 24 10/19/2023 US, pelvi s No observ ation record ed. [address], [place], [address], 10/19/2023 12:47:16 10/19/19 24 10/19/2023 US, trans vagin al No observ ation record ed. [address], [place], [address], 10/19/2023 12:47:28 10/19/19 24 10/19/2023 US, pelvi s No observ ation record ed. KIMBERLY Santa [address], [place], [address], 10/20/2023 12:04:11 Result Notes None recorded. Problems Name Problem SNOMED Code Status Onset Date Resolution Date Notes Provider Name and Address Organization Details Recorded Time [id number] Completed 022 01/20/2022 Aishwarya Perry [facility], [facility] 16:24:58 Problem Notes None recorded. Procedures Surgical History Date Name Laterality Status Provider Name and Address Organization Details Recorded Time 07/23/2023 Date of Last Pap Smear completed Abby Burrell [facility] 10/25/2023 10:43:33 Imaging Results Imaging Date Name Status LastModified by Organization Details LastModified Time 10/19/2023 US, pelvis completed [address], [place], [address], 10/19/2023 12:47:16 10/19/2023 US, transvaginal completed [email or web address] Juan Manuel patel [address], [place], [address], 10/19/2023 12:47:28 10/19/2023 US, pelvis completed KIMBERLY Santa [address], [place], [address], 10/20/2023 12:04:11 Procedure Notes None recorded. Medical Equipment None Reported. Allergies No known drug allergies Medications Name Sig Start Date Stop Date Status Note LastModified by Organization Details LastModified Time cyclobenzap rine 10 mg tablet active Not Available Not Available Not Available amoxicillin 500 mg capsule TAKE 1 CAPSULE BY MOUTH TWICE DAILY FOR 7 DAYS 10/13 completed Not Available Not Available Not Available hydrocortis one-pramoxi ne 2.5 %-1 % rectal cream INSERT 1 APPLICATI ON RECTALLY DIRECTED 07/22 completed Not Available Not Available Not Available trazodone 50 mg tablet TAKE 1 TABLET BY MOUTH EVERY DAY AT BEDTIME 07/22 completed Not Available Not Available Not Available ibuprofen 800 mg tablet TAKE 1 TABLET BY MOUTH EVERY 8 HOURS WITH FOOD NEEDED 07/22 completed Not Available Not Available Not Available ondansetron HCl 4 mg tablet 10/06 completed Not Available Not Available Not Available betamethaso ne, augmented 0.05 % topical cream 07/22 completed Not Available Not Available Not Available meclizine 12.5 mg tablet TAKE 1 TABLET BY MOUTH THREE TIMES DAILY NEEDED 07/22 completed Not Available Not Available Not Available triamcinolo ne acetonide 0.5 % topical ointment APPLY TOPICALLY TO THE AFFECTED AREA TWICE DAILY 07/10 completed Not Available Not Available Not Available tramadol 50 mg tablet TK 1 T PO Q 4 TO 6 H PRN P 06/12 completed Not Available Not Available Not Available triamcinolo ne acetonide 0.1 % topical cream APPLY TOPICALLY TO THE AFFECTED AREA TWICE DAILY 07/22 completed Not Available Not Available Not Available amoxicillin 500 mg tablet TAKE 1 TABLET BY MOUTH TWICE DAILY. REPLACE TOOTHBRUS H AFTER 4 DOSES 07/10 completed Not Available Not Available Not Available hydrocortis one-pramoxi ne 2.5 %-1 % topical cream 07/22 completed Not Available Not Available Not Available famotidine 20 mg tablet TAKE 1 TABLET BY MOUTH DAILY AT BEDTIME NEEDED 07/10 completed Not Available Not Available Not Available rizatriptan 10 mg disintegrat ing tablet DISSOLVE ONE TABLET BY MOUTH NEEDED FOR HEADACHE. MAY REPEAT IN 2 HOURS IF UNRESOLVE D. DO NOT EXCEED 30 MG IN 24 HOURS 07/22 completed Not Available Not Available Not Available fluoxetine 10 mg capsule 07/22 completed Not Available Not Available Not Available sertraline 25 mg tablet TAKE 1 TABLET BY MOUTH EVERY DAY IN THE MORNING FOR 7 DAYS 07/22 completed Not Available Not Available Not Available omeprazole 20 mg capsule,del ayed release TAKE 1 CAPSULE BY MOUTH DAILY 30 MINUTES BEFORE BREAKFAST 07/10 completed Not Available Not Available Not Available ergocalcife rol (vitamin D2) 1,250 mcg (50,000 unit) capsule Take 1 capsule every week by oral route. 07/24 completed Not Available Not Available Not Available azelastine 137 mcg (0.1 %) nasal spray USE 2 SPRAYS IN EACH NOSTRIL TWICE DAILY 07/10 completed Not Available Not Available Not Available epinephrine 0.3 mg/0.3 mL injection, auto-inject or INJECT 1 PEN IN THE MUSCLE ONE TIME DIRECTED 07/22 completed Not Available Not Available Not Available levofloxaci n 750 mg tablet TAKE 1 TABLET BY MOUTH EVERY DAY FOR 14 DAYS 07/22 completed Not Available Not Available Not Available methylpredn isolone 4 mg tablets in a dose pack TAKE DIRECTED 10/13 completed Not Available Not Available Not Available hydroxyzine HCl 10 mg tablet TAKE 1 TO 2 TABLETS BY MOUTH THREE TIMES DAILY NEEDED 07/22 completed Not Available Not Available Not Available ondansetron 4 mg disintegrat ing tablet DISSOLVE 1 TABLET ON THE TONGUE THREE TIMES DAILY NEEDED 07/22 completed Not Available Not Available Not Available fluticasone propionate 50 mcg/actuati on nasal spray,suspe nsion 07/22 completed Not Available Not Available Not Available sertraline 50 mg tablet TAKE 1 TABLET BY MOUTH EVERY DAY 07/22 completed Not Available Not Available Not Available amoxicillin 875 mg-potassiu m clavulanate 125 mg tablet TAKE 1 TABLET BY MOUTH EVERY 12 HOURS FOR 7 DAYS 07/10 completed Not Available Not Available Not Available escitalopra m 10 mg tablet 07/22 completed Not Available Not Available Not Available omeprazole magnesium 20 mg tablet,adriana yed release TAKE 1 TABLET BY MOUTH DAILY 07/10 completed Not Available Not Available Not Available topiramate 50 mg tablet 07/22 completed Not Available Not Available Not Available magnesium 07/24 completed Not Available Not Available Not Available amoxicillin 10/24 completed Not Available Not Available Not Available Tylenol 10/06 completed Not Available Not Available Not Available Tums 10/06 completed Not Available Not Available Not Available 07/22 completed Not Available Not Available Not Available B12 07/24 completed Not Available Not Available Not Available butalbital- acetaminoph en-caffeine 50 mg-300 mg-40 mg capsule TAKE 1 CAPSULE BY MOUTH EVERY 6 HOURS 07/22 completed Not Available Not Available Not Available Xulane 150 mcg-35 mcg/24 hr transdermal patch APPLY 1 PATCH TOPICALLY TO THE SKIN EVERY WEEK 07/22 completed Not Available Not Available Not Available Finacea 15 % topical foam 07/22 completed Not Available Not Available Not Available Vitals Date Recorded Body height Body mass index (BMI) Body weight Systolic blood pressure Diastolic blood pressure Provider Name and Address Organization Details Last Updated DateTime 10/14/2023 157.48 cm 31 kg/m2 85791.27 g 111 mm[Hg] 76 mm[Hg] Beena Williamson [facility] 4 10:09:09 Date Recorded Body height Body mass index (BMI) Body weight Systolic blood pressure Diastolic blood pressure Provider Name and Address Organization Details Last Updated DateTime 10/25/2023 157.48 cm 31.1 kg/m2 48484.7 g 118 mm[Hg] 74 mm[Hg] Abby Burrell [facility] 4 12:04:34 Date Recorded Body height Body mass index (BMI) Body weight Systolic blood pressure Diastolic blood pressure Provider Name and Address Organization Details Last Updated DateTime 07/10/2024 157.48 cm 28.9 kg/m2 44190.59 g 107 mm[Hg] 75 mm[Hg] Meka Estrada [facility] 5 09:14:56 Date Recorded Body height Body mass index (BMI) Body weight Systolic blood pressure Diastolic blood pressure Provider Name and Address Organization Details Last Updated DateTime 07/24/2024 157.48 cm 29.1 kg/m2 90590.91 g 132 mm[Hg] 84 mm[Hg] Yessy Coffey [facility] 5 09:46:25 Social History Question Answer Notes LastModified by Organizat ion Details LastModified Time Tobacco Smoking Status Former Smoker Ankur Cassidy leanne, [facility] 01/21/2022 14:24:20 If You Are , What Was Your Level Of Alcohol Consumption Prior To ? Occasional [email or web address] Information not available 01/21/2022 Are You Blind Or Do You Have Difficulty Seeing? No [email or web address] Information not available 07/04/2020 What Is Your Level Of Caffeine Consumption? Occasional [email or web address] Information not available 07/04/2020 How Much Tobacco Do You Chew? None Information not available 03/19/2021 In The 14 Days Before Symptom Onset, Have You Had Close Contact With A Laboratory-confir med COVID-19 While That Case Was Ill? No [email or web address] Information not available 07/04/2020 In The 14 Days Before Symptom Onset, Have You Had Close Contact With A Person Who Is Under Investigation For COVID-19 While That Person Was Ill? No [email or web address] Information not available 07/04/2020 Have You Been To An Area Known To Be High Risk For COVID-19? No [email or web address] Information not available 07/04/2020 Are You Deaf Or Do You Have Serious Difficulty Hearing? No [email or web address] Information not available 07/04/2020 What Type Of Diet Are You Following? REGULAR [email or web address] Information not available 07/04/2020 What Is The Highest Grade Or Level Of School You Have Completed Or The Highest Degree You Have Received? [id number] [email or web address] Information not available 03/19/2021 Do You Use Protection During Sex? No [email or web address] Information not available 03/19/2021 Do You Use Your Seat Belt Or Car Seat Routinely? Yes [email or web address] Information not available 07/04/2020 Do You Have Smoke And Carbon Monoxide Detectors In Your Home? Yes [email or web address] Information not available 07/04/2020 At What Age Did You Start Smoking Tobacco? 22 [email or web address] Information not available 03/19/2021 How Much Tobacco Do You Smoke? No [email or web address] Information not available 03/19/2021 Do You Use Sunscreen Routinely? No [email or web address] Information not available 05/22/2021 Has Tobacco Cessation Counseling Been Provided? No [email or web address] Information not available 01/21/2022 How Many Years Have You Smoked Tobacco? 3 [email or web address] Information not available 03/19/2021 Have You Used IV Drugs? No [email or web address] Information not available 03/19/2021 Sex: Unknown Functional Status Question Answer Note LastModified by Organizat ion Details LastModified Time Do you use any illicit or recreational drugs? Yes [email or web address] Information not available 03/19/2021 Do you or have you ever used any other forms of tobacco or nicotine? Yes [email or web address] Information not available 01/21/2022 What is your level of alcohol consumption? None [email or web address] Information not available 08/21/2021 Do you or have you ever used smokeless tobacco? Never used smokeless tobacco [email or web address] Information not available 01/21/2022 Do you have difficulty walking or climbing stairs? No Information not available 01/21/2022 Are you able to walk? YESWOREST [email or web address] Information not available 07/04/2020 Are you able to care for yourself? Yes [email or web address] Information not available 01/21/2022 What is your occupation? [employer]er [email or web address] Information not available 05/22/2021 Do you have difficulty dressing or bathing? No [email or web address] Information not available 01/21/2022 Do you or have you ever used e-cigarettes or vape? Current user of electronic cigarettes [email or web address] Information not available 01/21/2022 What is your exercise level? Occasional [email or web address] Information not available 07/04/2020 Mental Status Question Answer Note LastModified by Organization D etails LastModified Time Do you feel stressed (tense, restless, nervous, or anxious, or unable to sleep at night)? [id number] [email or web address] Information not available 07/04/2020 Family History Relationship Description Onset Age of this Age Resolved Age Notes LastModified by Organization Details LastModified Time Father No current problems or disability [email or web address] Not available 01/21 14:24:18 Mother No current problems or disability [email or web address] Not available 01/21 14:24:18 Unspecified Relation Family history unknown [email or web address] Not available 03/19 16:45:52 Medical History Condition Response Allergies (Food, seasonal, environmental ) N Other N Drug/Latex Allergies/Reactions N Blood Transfusion N Breast Cancer N Dermatologic Disorders N Lung Disease N Defects or Inherited Disease N Breast Problem N Gestational Diabetes N Hematologic disorders N Anesthesia Complications N History of STI N Deep Vein Thrombosis N Polycystic ovary syndrome N Anxiety Disorder N Autoimmune disease N Arthritis N Polyps N Infertility N Acid Reflux (GERD) N History of abnormal pap N Cancer N Varicosities N Stroke N Neurologic/Epilepsy N Endometriosis N High Cholesterol N Fibromyalgia N Headaches N Kidney Disease N Heart Problems N Thyroid Problems N Kidney or Bladder Problems N GI Problems N Eating Disorder N Anemia N Art (IVF or FET) N Psychiatric Illness N Ovarian Cancer N Diabetes N Pulmonary (TB, Asthma) N Hepatitis/Liver Disease N No Past Medical History Y Eczema N Urinary Tract Infection N Abuse/Domestic Violence N Asthma N Trauma/Violence N Depression/ depression N Heart Disease N Pre-Eclampsia N Hypertension N Osteoporosis N Thrombophilias N Gynecological History Statement/Question Response Abnormal Pap N Date of Last Mammogram Flow Moderate Date of LMP 07/16/2024 On BCP's at Conception? N Was last menstrual period normal Y STIs/STDs N HPV Vaccine N Duration of Flow (days) 4 Current Control Method Withdrawal Age at First Child 19 Are cycles usually normal Y Frequency of Cycle (Q days) 36 Sexually Active? Y Menses Monthly Y Date of DEXA bone scan Age of first menstrual cycle 12 Date of Last Pap Smear 07/23/2023 Sexual Problems? N LMP Definite Obstetrics History GPAL:G 2 P 2 0 0 2 Type Value Full Term 2 Living 2 Total 2 Past Encounters Encounter ID Performer Location Encounter Start Date Encounter Closed Date Diagnosis/Indication Diagnosis SNOMED-CT Code Diagnosis ICD10 Code Diagnosis Note [id number] [facility] [address],[place] [address] 06/12/2020 16:17:41 06/12/2020 17:01:32 Gynecologic examination 88781790 Z01.419 [id number] [facility] [address],[place] [address] 03/19/2021 16:37:16 03/20/2021 09:48:53 Trying to conceive 908512202 Z31.9 Irregular periods 369896 07 N92.[id number] [facility] [address],[place] [address] 05/22/2021 09:57:41 05/23/2021 17:22:47 test positive 483432855 Z32.01 Risk factors addressed: Tobacco Cessation, Safe Sexual Practices, environmen lila, work hazards, travel restrictio ns, seat belt use.Eat a health well balanced diet, avoid alcohol, tobacco, and street drugs.Enga ge in daily low impact exercise, avoid temperatur e extremes, and cat, rodent, and bird feces.Avoi d travel to areas where zika virus is a concern.Of fered cf/sma/nip t. Desires testing. Handouts given and discussed with patient.Ch ildbirth classes recommende d.New OB sheet given.If previous , counseling .Pt verbalizes that she understand s the importance of above instructio ns.All questions were answered.P atient reminded to have annual well woman examinatio n and address preventati ve healthcare . Mastodynia of bilateral breasts [id number] 5696023 N64.4 Bilateral breast tenderness . A little worse on the right side. Exam normal. Will give 2 weeks. If no resolution pt will notify us. Pt will continue to check for lumps and notify us if any lumps. [id number] Luis Antonio Jack MD [facility] [address],[place] [address] 05/22/2021 09:56:08 05/22/2021 10:46:57 [id number] Luis Antonio Jack MD [facility] [address],[place] [address] 06/25/2021 14:19:14 06/25/2021 15:00:19 screening [id number] Z36.82 [id number] Luis Antonio Jack MD [facility] [address],[place] [address] 06/25/2021 14:19:24 06/25/2021 15:47:23 Routine care 938109435 Z34.91 [id number] [facility] [address] [address] 07/24/2021 16:08:03 07/25/2021 15:59:40 Routine care 364910914 Z34.92 [id number] Luis Antonio Jack MD [facility] [address],[place] [address] 08/21/2021 14:10:25 08/21/2021 15:32:18 screening for malformation 482436331 Z36.3 [id number] [facility] [address] [address] 08/21/2021 14:11:52 08/22/2021 16:38:16 Routine care 876181392 Z34.92 Migraine 60587009 G43.90 9 [id number] [facility] [address] [address] 09/23/2021 14:48:16 10/02/2021 15:54:48 Routine care 606890217 Z34.92 [id number] Katty Do MD [facility] [address],[place] [address] 10/06/2021 11:52:05 10/06/2021 14:52:47 Routine care 285158772 Z34.82 [id number] Luis Antonio Jack MD [facility] [address],[place] [address] 10/20/2021 17:29:07 10/20/2021 18:49:11 Routine care 678079910 Z34.91 [id number] MD Rafael Santos [address],[place] [address] 11/06/2021 16:14:36 11/07/2021 14:44:02 Routine care 773647894 Z34.91 [id number] MD Rafael Santos [address],[place] [address] 11/20/2021 16:09:20 11/20/2021 17:15:49 Routine care 407995892 Z34.91 [id number] MD Rafael Santos [address],[place] [address] 11/25/2021 11:52:12 11/25/2021 13:53:38 Uterine size for dates discrepancy 039824039 O26.843 Z3A.34 [id number] MD Rafael Santos [address],[place] [address] 12/03/2021 16:19:46 12/03/2021 18:19:07 Hemorrhoids 04386328 K64.9 [id number] MD Rafael Santos [address],[place] [address] 12/11/2021 16:18:23 12/11/2021 16:58:26 Routine care 151458219 Z34.91 [id number] MD Rafael Santos [address],[place] [address] 12/19/2021 14:15:22 12/19/2021 15:52:44 Routine care 909351386 Z34.91 [id number] MD Rafael Santos [address],[place] [address] 12/26/2021 14:16:31 12/26/2021 15:41:28 Routine care 950729639 Z34.91 [id number] Luis Antonio Jack MD [facility] [address],[place] [address] 01/21/2022 14:24:11 01/21/2022 16:39:14 care 565239305 Z39.2 This patient is a 26-year-ol d female who is 3 and half weeks from a vaginal . She is breast feeding. She is having a small amount of bleeding. She has not had sex. She would like to To start the patch. She knows how to use the patch per she has used in the past. She has significan t amount of anxiety. She scored high on the EPDS screening. Talked about treatment. We agreed to treatment. The patient will be treated with Zoloft. She will follow-up in 4 weeks. The baby is doing well. depression 58 184915 F53.0 [id number] Luis Antonio Jack MD [facility] [address],[place] [address] 03/13/2022 11:11:47 03/13/2022 11:52:55 Mixed anxiety and depressive disorder 152200174 F41.8 this patient is a 26-year-ol d female presents for follow-up on anxiety. Her anxiety and depression were . She reports improvemen t with the 50 mg Zoloft. She feels stable and only has some occasional anxiety. She would like to continue the medication . We agreed to follow-up in 3 months. [id number] Luis Antonio Jack MD [facility] [address],[place] [address] 11/09/2022 11:49:15 11/09/2022 13:01:11 Abnormal uterine bleeding 8020079903 9100 N93.9 27-year-ol d female who has concerns about severe anxiety episodes. She is interested in reviewing hormones that might contribute to anxiety. Talked about her sex hormones. Talked about her menstrual cycle. Talked about recent breast-fee ding and her new baby. She has been in the emergency department multiple times for anxiety and panic. She had a unusual reaction to Zoloft. We talked about sex hormones, we talked about anxiety, we spent 20 minutes face-to-fa ce. More 50% was counseling . She has urinary symptoms. We will seek psychiatry referral. She is checking for psychiatri st in her network. Anxiety 48906483 F41.9 [id number] Luis Antonio Jack MD [facility] [address],[place] [address] 07/23/2023 11:52:03 07/23/2023 12:23:45 Gynecologic examination 21283541 Z01.419 Annual gynecologi jami exam performed. Patient will come back in a year unless there are new symptoms. Suggest Calcium with Vitamin D if not eating in diet. Patient advised to get annual flu shot. Recommend yearly physicals and preform monthly breast exams. Genetic testing is available for patients with family history of cancer. Engage in safe sexual practices, use condoms. Encouraged to have daily exercise. Avoid tobacco and illicit drugs, moderation of alcohol. If BMI greater than 25 dietary consult advised. If you have any questions please call or email. Pap smear- today laboratory evaluation - today [id number] Luis Antonio Jack MD [facility] [address],[place] [address] 07/29/2023 13:54:06 07/29/2023 14:42:57 Pain in pelvis 58253016 R10.2 [id number] AI Solo [facility] [address],[place] [address] 10/14/2023 09:56:37 10/14/2023 12:12:38 Irregular periods 60717750 N92.6 Discussed recent irregular period and factors that can contribute to irregular cyclesUPT (-)option given to continue to track cycles over the next 3 months to see if patterns return to regularpt opts to pursue updated labs and pelvic u/s - orderedSTI screen ordered per pt request, safe sexual practices discussedp recautions discussed, questions answered Time spent in visit is a total of 20 mins with at least 50% of visit consisting of counseling and review of plan of care. Abnormal u terine bleeding 0576372046 9100 N93.9 Venereal d isease screening 447440813 Z11.3 Sexually t ransmitted infectious disease 7765511 A64 [id number] Luis Antonio Jack MD [facility] [address] [address] 10/19/2023 10:57:22 10/19/2023 11:39:08 Irregular periods 18787551 N92.6 [id number] AI Solo [facility] [address] [address] 10/25/2023 11:57:08 10/25/2023 12:20:16 Irregular periods 02662762 N92.6 Reviewed updated labs and pelvic u/s result - all wnldiscuss ed BC options - declined at this timewe agreed to have her monitor/tr ack her periods over the next 3 months. If irregulari ties continue she will notify the office, otherwise WWE due in 1 yr. Precaution s reviewed, questions answered Time spent in visit is a total of 18 mins with at least 50% of visit consisting of counseling and review of plan of care. [id number] Luis Antonio Jack MD [facility] [address],[place] [address] 07/10/2024 09:05:27 07/10/2024 09:35:06 Pain of left breast 1576361522 N64.4 Discussed that no palpable lump noted on exam.Recom mended well-fitti ng sports bra. Recommende d vitamin E supplement 400-600 IU once or twice daily to help with breast tenderness .Patient advised to perform self-breas t exams and report any changes.Pa tient to RTO after next period to re-evaluat e breast tenderness and breast tissue.Add itional evaluation with u/s imaging is recommende d if tenderness remains persistent or worsens, or if a mass is noted on exam. Patient verbalizes understand ing. [id number] Luis Antonio Jack MD [place] [address] [address] 07/24/2024 09:37:42 07/24/2024 10:17:33 Well woman health examination [id number] Z01.419 Annual gynecologi jami exam performed. Patient will come back in a year unless there are new symptoms. Suggest Calcium with Vitamin D if not eating in diet. Patient advised to get annual flu shot. Recommend yearly physicals and perform monthly breast exams. Genetic testing is available for patients with family history of cancer. Engage in safe sexual practices, use condoms. Encouraged to have daily exercise. Avoid tobacco and illicit drugs, moderation of alcohol. If BMI greater than 25 dietary consult advised. If you have any questions please call or email. Pap smear- UTD (2023 - WNL), will repeat in 2026 per ASCCP guidelines laboratory evaluation - requested STI testing - requested Venereal d isease screening [id number] Z11.3 Pt requested STI testing.Di scussed the various types of STDs, related symptoms and the potential consequenc es (including effects on fertility) of STD infections . Reviewed ways to limit exposure and prevention techniques . Pain of left breast 1010 [id number] N64.4 Patient reports that left breast pain is still present after last menstrual period.Dis cussed ordering left breast ultrasound for further evaluation .Order given, pt to schedule.P atient advised to perform self-breas t exams and report any changes. Health Concerns Section Related Observation LastModified by Organization Detai ls LastModified Time None Recorded Concern Status LastModified by Organization Details LastModified Time None Recorded Advance Directives Directive None Recorded Payers Encounter Date Sequence Insurance Name Policy Number Policy Morales Covered Member ID Morales Member ID Guarantor Name 10/14/2023 1 [employer] (PPO) [id number] Yani Foster [id number] Yani Foster 10/19/2023 1 [employer]PPO) [id number] Yani Foster [id number] Yani Foster 10/25/2023 1 [employer] (PPO) [id number] Yani Foster [id number] Yani Foster 07/10/2024 1 [employer] (PPO) [id number] Yani Foster [id number] Yani Foster 07/24/2024 1 [employer] (PPO) [id number] Yani Foster [id number] Yani Foster Notes Date Note Type Note Provider Name and Address Organization Details Recorded Time text/html [id number] for evaluation of recent irregular periodhistorically has periods monthly / every 28-32 days. Lasting 5 daysshe had a normal period 09/27-10/01yesterday started again, currently having light bleeding was recently sick with an URI and under stress the week prior to this bleeding SA with steady male partner, withdrawal for BC neg n/v/fneg flu-like symptomsneg AUBneg pelvic painneg vaginal d/c, odors, itching [facility] [address], [place], [address], [facility] 10/14/2023 11:47:19 4 text/html 28yopresents for f/u to review recent labs and pelvic u/shas not had any irregular bleeding since her last office visit [facility] [address], [place], [address], [facility] 10/25/2023 12:19:14 5 text/html 28 y/o female presents with c/o a left breast lump/dense tissue she felt when lying on her side last week. Patient states that the area was not tender initially, but has become more tender after palpating it more. Denies known injury to area. Denies nipple discharge, skin changes.Maternal aunt - breast cancer (>50)LMP 06/17/24 OSMANI CARTER NP [address], [place], [address], [facility] 07/10/2024 09:34:11 5 text/html Annual GYNReported bypatient.Menstrual cycle:Normal menses Urinary symptoms:No hematuria; No incontinence Vulva:No genital lesion Vagina:Normal vaginal discharge Breast:No breast lump; No nipple discharge;Breast pain Current Contraception:Condoms Sexual complaints:No sexual complaints; No pain during intercourse; Normal libido Menopausal Symptoms:No menopausal symptoms; Normal vaginal lubrication Psychological symptoms:No depression; No anxiety; No PMDD Preventive measures:Encourage self breast examination; Encourage regular exercise; Encourage no tobacco use; Encourage regular mammograms starting age 40 Patient presents for annual well woman exam. Patient reports that she is still experiencing left outer breast tenderness. Denies nipple discharge, palpable masses, or skin changes. [facility] 07/24/2024 10:10:32 OBGyn Episode Ob Episode Information Episode Created Date Number of Fetuses Patient Bloodtype Patient rh Status Prepregnancy Weight lbs Domestic Partner Domestic Partner Phone Father Name Senior Case Manager Status 07/05/19 21 1 CLOSED Fetus Data First Name Last Name Admitted to NICU Weight (g) Sex Living Outcome Pediatric Complications Fetus ID Race Codes Race Delivery Type 3288.54 2 M Full Term 9116 Vaginal Delivery Hayden Calculation Initial [place]den Date Initial Exam Date Initial Exam Provider Initial Ultrasound Date Last Menstrual Period Date Ultra Sound Weeks Gestation 0 Eighteen To Twenty Week [place] Update Ultra Sound Date Fundal Height At Umbil Quickening Date Ultra Sound Latest Weeks Gestation Final [place] Confirmed By Final [place] Confirmed Date Final [place] Date Ultra Sound Latest Days Gestation 0 0 Menstrual History Last Menstrual Date Menses Monthly On Bcp Conception Prior Menses Frequency Hcg Plus Date Menarche Onset Age Delivery Information Delivery Date Delivery Type Labor Anesthesia Weeks Gestation Incision Type Labor Labor Length Hrs Delivered By Post Complications Tubal Sterilization Discharge Date Comments 5 40 JORDYN- delivery at [facility] in , Dr. Arteaga Discharge Information Feeding Method Contraceptive Method Maternal HG B and HCT Levels Ob Episode Information Episode Created Date Number of Fetuses Patient Bloodtype Patient rh Status Prepregnancy Weight lbs Domestic Partner Domestic Partner Phone Father Name Senior Case Manager Status 06/26/19 22 1 148 CLOSED Fetus Data First Name Last Name Admitted to NICU Weight (g) Sex Living Outcome Pediatric Complications Fetus ID Race Codes Race Delivery Type 2948.34 8 F true Full Term [id number] Vaginal Delivery [place]den Calculation Initial [place] Date Initial Exam Date Initial Exam Provider Initial Ultrasound Date Last Menstrual Period Date Ultra Sound Weeks Gestation 01/02/2022 06/25/2021 05/22/2021 03/28/2021 7 Eighteen To Twenty Week [place] Update Ultra Sound Date Fundal Height At Umbil Quickening Date Ultra Sound Latest Weeks Gestation Final [place] Confirmed By Final [place] Confirmed Date Final [place] Date Ultra Sound Latest Days Gestation 0 [email or web address] 06/25/2021 01/03/20 22 0 Pre- Flowsheet Flowsheet Date 06/25/2021 Walls Score Blood Edema Fundus Height Fundus Units Glucose Ketones Leukocytes Nitrite Labor Signs Protein Cervic Dilation Cervic Effacement Cervic Station 12 Type Weight in lbs Pre/Post Dialysis Refused Weight 146.392693045523 BP Diastolic BP Location Tested BP Systolic BP Type 73 R arm 107 sitting Fetus Heart Rate Present A 157 Fetus Movement Comments this patient is a 25-year-ol d 2 para 1001 at weeks gestation who presents for initial care. She reports gastroesophageal reflux. She was given recommendations. She is vaccinated. She is having genetic screening. She was given recommendations on flu vaccine and Tdap. Discussed care in great detail. She will begin routine care. Flowsheet Date 07/24/2021 Walls Score Blood Edema Fundus Height Fundus Units Glucose Ketones Leukocytes Nitrite Labor Signs Protein Cervic Dilation Cervic Effacement Cervic Station neg none none trace Type Weight in lbs Pre/Post Dialysis Refused Weight 152.213063240245 BP Diastolic BP Location Tested BP Systolic BP Type 68 100 Fetus Heart Rate Present A 152 Fetus Movement A Yes Comments Doing well. Still does have occasional nausea and vomiting and acid reflux. Will try pepcid. Occasional headaches. Was seen in the ER and treated. Still has them on occasion. Will try benadryl at night once to see if sinus related and also have eye exam. Will consider neuro consult if no improvement. Pt will keep us updated. Flowsheet Date 08/21/2021 Walls Score Blood Edema Fundus Height Fundus Units Glucose Ketones Leukocytes Nitrite Labor Signs Protein Cervic Dilation Cervic Effacement Cervic Station Type Weight in lbs Pre/Post Dialysis Refused BP Diastolic BP Location Tested BP Systolic BP Type Fetus Heart Rate Present Fetus Movement Comments Flowsheet Date 08/21/2021 Walls Score Blood Edema Fundus Height Fundus Units Glucose Ketones Leukocytes Nitrite Labor Signs Protein Cervic Dilation Cervic Effacement Cervic Station neg none none trace Type Weight in lbs Pre/Post Dialysis Refused Weight 154.551352581850 BP Diastolic BP Location Tested BP Systolic BP Type 68 102 Fetus Heart Rate Present Fetus Movement A Yes Comments patient states that has head aches and nausea.Headaches atleast 3x per week. Other measures have not helped. Will send out fioricet and schedule neuro consult. Otherwise doing well. Plan to return in 4 weeks. She will let us know if she has not heard from neuro by her next visit. Anatomy scan today. Flowsheet Date 09/23/2021 Walls Score Blood Edema Fundus Height Fundus Units Glucose Ketones Leukocytes Nitrite Labor Signs Protein Cervic Dilation Cervic Effacement Cervic Station neg none 26 none trace Type Weight in lbs Pre/Post Dialysis Refused Weight 158.318469689361 BP Diastolic BP Location Tested BP Systolic BP Type 68 108 Fetus Heart Rate Present A 140 Fetus Movement A Yes Comments Doing well. Does have some r ound ligament pain. Discussed ways to minimize. Is on her feet alot at work. Will measure for maternity belt. Planning epidural. Bottle feeding. Thinking about switching to pedi in [place]. Flowsheet Date 10/06/2021 Walls Score Blood Edema Fundus Height Fundus Units Glucose Ketones Leukocytes Nitrite Labor Signs Protein Cervic Dilation Cervic Effacement Cervic Station neg trace 27 Type Weight in lbs Pre/Post Dialysis Refused Weight 159.329900841828 BP Diastolic BP Location Tested BP Systolic BP Type 65 97 Fetus Heart Rate Present A 160 Fetus Movement A Yes Comments Doing pretty well. SILVA have b een alright and she has not needed fioricet. Does have neuro visit scheduled on 10/14. GCT today, discussed and encouragedc Tdap. Flowsheet Date 10/20/2021 Walls Score Blood Edema Fundus Height Fundus Units Glucose Ketones Leukocytes Nitrite Labor Signs Protein Cervic Dilation Cervic Effacement Cervic Station 30 Type Weight in lbs Pre/Post Dialysis Refused Weight 166.968840899433 BP Diastolic BP Location Tested BP Systolic BP Type 68 R arm 104 sitting Fetus Heart Rate Present A 154 Fetus Movement Comments Given recommendations on leg cramps. Discussed pelvic pressure, sounds normal. Flowsheet Date 11/06/2021 Walls Score Blood Edema Fundus Height Fundus Units Glucose Ketones Leukocytes Nitrite Labor Signs Protein Cervic Dilation Cervic Effacement Cervic Station 32 Type Weight in lbs Pre/Post Dialysis Refused Weight 167.612788745882 BP Diastolic BP Location Tested BP Systolic BP Type 72 R arm 110 sitting Fetus Heart Rate Present A 150 Fetus Movement Comments NO COMPLAINTS, DISCUSSED NUC LOU CORD, DISCUSSED PRESENTATION. PALPATES VERTEX Flowsheet Date 11/20/2021 Walls Score Blood Edema Fundus Height Fundus Units Glucose Ketones Leukocytes Nitrite Labor Signs Protein Cervic Dilation Cervic Effacement Cervic Station 36 Type Weight in lbs Pre/Post Dialysis Refused Weight 172.072367517862 BP Diastolic BP Location Tested BP Systolic BP Type 66 R arm 102 sitting Fetus Heart Rate Present A 145 Fetus Movement Comments Size bigger than dates, grow th ultrasound Flowsheet Date 11/25/2021 Walls Score Blood Edema Fundus Height Fundus Units Glucose Ketones Leukocytes Nitrite Labor Signs Protein Cervic Dilation Cervic Effacement Cervic Station Type Weight in lbs Pre/Post Dialysis Refused BP Diastolic BP Location Tested BP Systolic BP Type Fetus Heart Rate Present Fetus Movement Comments Flowsheet Date 12/03/2021 Walls Score Blood Edema Fundus Height Fundus Units Glucose Ketones Leukocytes Nitrite Labor Signs Protein Cervic Dilation Cervic Effacement Cervic Station Type Weight in lbs Pre/Post Dialysis Refused Weight 172.572488677984 BP Diastolic BP Location Tested BP Systolic BP Type 71 R arm 105 sitting Fetus Heart Rate Present Fetus Movement A Yes Comments hemorrhoids, painful and unc omfortable. rxed alapram, Episodes of lightheadedness, encourage healthy snacks, hydration, emergency department for worsening of symptoms. Flowsheet Date 12/11/2021 Walls Score Blood Edema Fundus Height Fundus Units Glucose Ketones Leukocytes Nitrite Labor Signs Protein Cervic Dilation Cervic Effacement Cervic Station 37 Type Weight in lbs Pre/Post Dialysis Refused Weight 175.995404797152 BP Diastolic BP Location Tested BP Systolic BP Type 68 R arm 107 sitting Fetus Heart Rate Present A 145 Fetus Movement Comments Severe pain, semi favorable cervix that may be closed the internal os. Could not quite reach. She may need Cervidil. Flowsheet Date 12/19/2021 Walls Score Blood Edema Fundus Height Fundus Units Glucose Ketones Leukocytes Nitrite Labor Signs Protein Cervic Dilation Cervic Effacement Cervic Station 38 none neg Type Weight in lbs Pre/Post Dialysis Refused Weight 174.264976267963 BP Diastolic BP Location Tested BP Systolic BP Type 77 112 Fetus Heart Rate Present A 145 Fetus Movement A Yes Comments Cervidil induction the eveni ng of the , no complaints Flowsheet Date 12/26/2021 Walls Score Blood Edema Fundus Height Fundus Units Glucose Ketones Leukocytes Nitrite Labor Signs Protein Cervic Dilation Cervic Effacement Cervic Station Type Weight in lbs Pre/Post Dialysis Refused Weight 178.580598512780 BP Diastolic BP Location Tested BP Systolic BP Type 73 R arm 114 sitting Fetus Heart Rate Present Fetus Movement Comments No complaints, no problems, normal heart tones, induction in 2 days. Menstrual History Last Menstrual Date Menses Monthly On Bcp Conception Prior Menses Frequency Hcg Plus Date Menarche Onset Age 0103/28/2021 Genetic Screening And Infection History Question Response Note Mental Retardation/Autism false Patient's Age Will Be 35 Years Or Older At Estim ated Date of Delivery false Thalassemia (Gibraltarian, Omani, Mediterranean, Or Background): MCV < 80 false Neural Tube Defect (Meningomyelocele, Spina Bifi da, Or Anencephaly) false Congenital Heart Defect false Down Syndrome false George-Sachs (eg, Evangelical, Cajun, Chinese-Codington) f alse Jailyn Disease false Sickle Cell Disease Or Trait () false Hemophilia Or Other Blood Disorders false Muscular Dystrophy false Cystic Fibrosis false Attala's Chorea false Intellectual Disability/Autism false If Yes, Was Person Tested For Fragile X? false Other Inherited Genetic Or Chromosomal Disorder false Maternal Metabolic Disorder (eg, Type 1 Diabetes , PKU) false Patient Or Baby's Father Had A Child With Defects Not Listed Above false Recurrent Loss, Or A Stillbirth false Medications (including Suppl ements, Vitamins, Herbs, OTC Drugs), Illicit/Recreational Drugs, Alcohol false If Yes, Agent(s) And Strength/Dosage false Any Other Genetic History false Live With Someone With TB Or Exposed To TB false Patient Or Partner Has History Of Genital Herpes false Rash Or Viral Illness Since Last Menstrual Perio d false History Of STD, Gonorrhea, Chlamydia, HPV, Syphi lis false Other Infection History false History of HIV false History of Hepatitis false Prior GBS-infected child false Hemoglobinopathy Or Carrier false Other Structural Defect false Recent Travel History Outside of Country false Delivery Information Delivery Date Delivery Type Labor Anesthesia Weeks Gestation Incision Type Labor Labor Length Hrs Delivered By Post Complications Tubal Sterilization Discharge Date Comments 2 Induce d Regional-Ep idural 39.3 false Luis Antonio Jack MD Discharge Information Feeding Method Contraceptive Method Maternal HG B and HCT Levels Breast
--- OUTSIDE RECORDS SUMMARY | 2024-07-31 08:40 | XMS_ITS ---
Author Organization [employer] [place] ([address]) Address [address] [address] Care Team Providers Care Label Stamper Name Role Phone Rosita Queen Unavailable [phone] Juvenal Shine Unavailable Unavailable ZZ-Migration, Provider Unavailable Unavailab le [facility] Conversion Encounter Medications Medication SIG (Take, Route, Frequency, Duration) Notes Start Date End Date Status Lexapro 10 MG 1 tab(s) orally once a day Active Rizatriptan Benzoate 10 MG 1 tab(s) orally twice daily for 30 days 04/07/2023 Active RESMED AIRSENSE 11 E0601 APAP 6-20 CM H2O A7033 - NASAL PILLOWS, AND ALL OTHER RELATED CPAP SUPPLIES NIGHTLY for 30 DAYS *Please review for potential replacement for e-prescription and drug interaction check* 01/11/2023 Active EpiPen 2-Alexys 0.3 MG/0.3ML as directed intramuscularly once Active NASAL WASHES N/A DIRECTED INTRANASALLY NEEDED for 30 *Please review for potential replacement for e-prescription and drug interaction check* Active Fluticasone Propionate 50 MCG/ACT 1-2 spray(s) in each nostril once a day Active Fluticasone Propionate 50 MCG/ACT 2 spray(s) in each nostril BID for 30 day(s) Active Cetirizine HCl 10 MG 1 tab(s) orally once a day for 30 days Active Encounters Encounter [facility] [address] [facility] Provider Eric Allergic rhinitis due to pollen J30.1 Assessments Encounter Date Diagnosis (ICD Code) Assessment Notes Treatment Notes Treatment Clinical Notes Section Notes 09/04/2023 Allergic rhinitis due to pollen (ICD-10 - J30.1) Plan Of Treatment Medication Medication Name Sig Start Date Stop Date Notes EpiPen 2-Alexys 0.3 MG/0.3ML as directed intramuscularly once NASAL WASHES N/A DIRECTED INTRANAS ALLY NEEDED for 30 *Please review for potential replacement for e-prescription and drug interaction check* Fluticasone Propionate 50 MCG/ACT 2 spray(s) in each nostril BID for 30 day(s) Cetirizine HCl 10 MG 1 tab(s) orally onc e a day for 30 days Progress Notes * Karime FOSTERDOB: [birth year] (28 yo M)Acc No.[id number]:09/04/2023 Patient: Karime CLARKE Provider: Carli Voss :1995 A ge:28 Y S ex:Male Date:09/04/2023 Address:[facility] [address], [facility] Subjective: * Chief Complaints: * 1 . Multum To Medispan Conversion Encounter. * Medical History: * Medications: T aking Fluticasone Propionate 50 MCG/ACT Suspension 1-2 spray(s) in each nostril once a day , Taking Lexapro 10 MG Tablet 1 tab(s) orally once a day , Taking RESMED AIRSENSE 11 E0601 APAP AUTOPAP WITH E0562 - HEATED CPAP HUMIDIFIER 6-20 CM H2O A7033 - NASAL PILLOWS, AND ALL OTHER RELATED CPAP SUPPLIES NIGHTLY , Notes to Pharmacist: *Please review for potential replacement for e-prescription and drug interaction check*, Taking Rizatriptan Benzoate 10 MG Tablet 1 tab(s) orally twice daily Objective: * Vitals: Assessment: * Assessment: 1. A llergic rhinitis due to pollen - J30.1 (Primary) Plan: * Treatment: * Billing Information: * Visit Code: * Procedure Codes: * Electronic signature of Prov ider ZZ-Migration on 07/31/2024 at 08:40 AM CDT Sign off status: Pending * Provider: Carli patiño Migration Date: 0 09/04/2023 Generated for Viktor Perea/Ralf on: 0 07/31/2024 08:40 AM CDT
--- OUTSIDE RECORDS SUMMARY | 2024-07-31 08:41 | XMS_ITS | Encounter Summary ---
Author Organization [facility] Address [address] [place] [address] Care Team Providers Care Public Relations Writer Name Role Phone Walter Mirandanaraymond Correa DO Primary Care Provider [phone] Encounter Details Date Type Department Care Team (Late st Contact Info) Description 06/29/2024 Results Follow-Up [facility] at [facility] [employer] [address] [place] [address] Riddhi Lai MD [address] [place] [address] TSH, LIPID PANEL, COMPREHENSIVE METABOLIC PANEL, CBC WITH DIFFERENTIAL Social History Tobacco Use Types Packs/Day Years Used Date Smoking Tobacco: Former Cigarettes Q uit: 04/23/2021 Smokeless Tobacco: Never Alcohol Use Standard Drinks/Week Comments Yes 0 (1 standard drink = 0.6 oz pur e alcohol) rarely- approx 2X/month Comments No Sex and Gender Information Value Date Recorded Sex Assigned at Not on file Legal Sex Female 7:34 AM CDT Gender Identity Not on file Sexual Orientation Not on file documented as of this encounter Miscellaneous Notes * Result Encounter Note - Iveth Wall RN - 06/29/2024 1:27 PM CDT Called patient and relayed message regarding lab results. Patient verbalized understanding. documented in this encounter Plan of Treatment Not on file documented as of this encounter Visit Diagnoses Not on filedocumented in this encounter Additional Health Concerns Assessment Noted Time PHQ-9 Depression Total Score: 2 05/24/19 24 8:00 AM BOXING TRAINER documented as of this encounter Care Teams Public Relations Writer Relationship Specialty Start Date End Date Jennifer Miranda DO [address] [place] [address] PCP - General Family Practice 06/28/24 documented as of this encounter
--- OUTSIDE RECORDS SUMMARY | 2024-07-31 08:41 | XMS_ITS ---
Author Organization [facility] [employer] [facility] [place] ([address]) Address [address] [place] [address] Care Team Providers Care Prepared Foods Associate Name Role Phone Rosita Queen Unavailable [phone] Juvenal Shine Unavailable Unavailable Ricky Recinos [phone] REASON FOR VISIT LCCPAP/BiPAP and SUPPLIES Encounters Encounter Location Date Provider Diagnosis [facility] [address] [place] [address] 08/10/2023 Ricky Recinos Plan Of Treatment No Information Progress Notes * Yani FOSTERDOB: [birth year] (28 yo M)Acc No.[id number]:08/10/2023 Patient: Yani CLARKE :1995 A ge:27 Y S ex:Male Address:[address] [address] * true * Date: Generated for Printi ng/Faxing/eTransmitting on: 0 07/31/2024 08:41 AM CDT
--- OUTSIDE RECORDS SUMMARY | 2024-07-31 08:41 | XMS_ITS | Clinical Summary ---
Author Organization [facility] [place] Address [address] [place] [address] [place] [address] Care Team Providers Care Spinning Operator Name Role Phone Jennifer Miranda Primary Care Provider [phone] Allergies No known active allergies Medications azelastine (ASTELIN) 137 mcg/actuation nasal spray USE 1 TO 2 SPRAYS IN EACH NOSTRIL EVERY 12 HOURS 01/14/2023 Active EPINEPHrine (EPIPEN) 0.3 mg/0.3 mL Auto-Injector INJECT 1 PEN IN THE MUSCLE ONE TIME DIRECTED 01/21/2023 Active rizatriptan (MAXALT) 10 mg Tablet 04/07/2023 Active ergocalciferol (VITAMIN D2) 50,000 unit capsule Take 1 Capsule by mouth every 7 days. 07/26/2023 Active CYANOCOBALAMIN, VITAMIN B-12, ORAL Take by mouth. Active MAGNESIUM CITRATE ORAL Take by mouth. Active amoxicillin (AMOXIL) 500 mg capsule Take 500 mg by mouth 2 times daily. Active triamcinolone acetonide (KENALOG) 0.1 % CreamIndication s:Eczema of left hand Apply to affected area 2 times daily. 30 Gram 12/13/2023 Active Xhance 93 mcg/actuation Aerosol Breath Activated 02/23/2024 Active omeprazole (PriLOSEC) 20 mg Capsule, Delayed Release(E.C.) Take 20 mg by mouth daily. Active Active Problems Problem Noted Date Diagnosed Date Dyshidrotic eczema 03/30/2023 Vertigo 09/15/2022 Insomnia 09/08/2022 Irritable bowel syndrome 09/04/2022 Migraine 09/04/2022 Panic attack 09/04/2022 At risk for nutrition deficiency 09/04/2022 Chronic idiopathic constipation 03/31/2019 Vitamin D deficiency 03/31/2019 Moderate episode of recurrent major depressive d isorder 12/01/2018 Resolved Problems Problem Noted Date Diagnosed Date Resolved Date Depressive disorder 09/04/2022 02/11/20 Chronic migraine without aur a without status migrainosus, not intractable 10/14/2021 02/10/2023 Low TSH level 03/31/2019 02/10/2023 Chronic nonintractable headache 11/11/2018 02/10/2023 Encounters Date Type Department Care Team Description 06/29/2024 Results Follow-Up [facility] ([facility]3] at [facility] [place] [address] [place] [address] Riddhi Lai MD TSH, LIPID PANEL, COMPREHENSIVE METABOLIC PANEL, CBC WITH DIFFERENTIAL 06/28/2024 10:40 AM CDT Office Visit [facility] [place] [address] [place] [address] Screening for condition (Primary Dx) 06/20/2024 External Device Data [facility] ABSTRACTION Provider, Abstract 05/27/2024 External Device Data STL ABSTRACTION Provider, Abstract 05/26/2024 External Device Data [facility] ABSTRACTION Provider, Abstract 05/23/2024 External Device Data STL ABSTRACTION Provider, Abstract 05/09/2024 External Device Data [facility] ABSTRACTION Provider, Abstract from Last 3 Months Family History Medical History Relation Name Comments No Known Problems Daughter Unknown Father No Known Problems Half-Brother No Known Problems Half-Sister Unknown Maternal Grandfather Unknown Maternal Grandmother Unknown Paternal Grandfather Unknown Paternal Grandmother No Known Problems Sister 1 Asthma Son Relation Name Status Comments Daughter Alive Father Half-Brother Alive Half-Sister Alive Maternal Grandfather Maternal Grandmother Mother Alive Paternal Grandfather Paternal Grandmother Sister 1 Alive Sister 2 Alive Son Alive Social History Tobacco Use Types Packs/Day Years Used Date Smoking Tobacco: Former Cigarettes Q uit: 04/23/2021 Smokeless Tobacco: Never Tobacco Cessation:Counseling Given: Not Answered Alcohol Use Standard Drinks/Week Comments Yes 0 (1 standard drink = 0.6 oz pur e alcohol) rarely- approx 2X/month Comments No Sex and Gender Information Value Date Recorded Sex Assigned at Not on file Legal Sex Female 7:34 AM CDT Gender Identity Not on file Sexual Orientation Not on file Last Filed Vital Signs Vital Sign Reading Time Taken Comments Blood Pressure 114/70 06/28/2024 10:41 AM CDT Pulse 88 03/09/2024 8:24 AM SPOUT LINER HELPER Temperature 36.7 C (98.1 F) 03/09/2024 8:24 AM SPOUT LINER HELPER Respiratory Rate 16 03/09/2024 8:24 AM SPOUT LINER HELPER Oxygen Saturation 99% 03/09/2024 8:24 AM SPOUT LINER HELPER Inhaled Oxygen Concentration - - Weight 71.7 kg (158 lb) 06/28/2024 10:41 AM CDT Height 157.5 cm (5' 2 ) 06/28/2024 10:41 AM CDT Body Mass Index 28.9 06/28/2024 10:41 AM CDT Plan of Treatment Health Maintenance Due Date Last Done Comments HPV/Cotest (21-29) 07/20/2022 07/20/2017 INFLUENZA VACCINE (#1) 2023 HPV VACCINES (3 - 3-dose series) 08/11/2024 05/19/19 25, 09/26/2012 CERVICAL CANCER SCREENING 07/22/2026 PAP SMEAR 07/22/2026 07/23/2023, 05/21, 07/20/2017 HPV/Cotest (30-65) 2026 07/20/2017 DTAP/TDAP/TD VACCINES (8 - T d or Tdap) 11/13/2031 11/12/2021, 12/11/2014, 11/29/2006, Additional history exists HEPATITIS B VACCINES Completed 04/05/1997, 1996, 1996 CHLAMYDIA SCREENING (ANNUAL) 11-24 YEARS Discontinued 07/20/2017 Procedures Procedure Name Priority Date/Time Associated Diagnosis Comments CBC WITH DIFFERENTIAL Routine 06/28/2024 10:28 AM CDT Screening for condition COMPREHENSIVE METABOLIC PANEL Routine 06/28/2024 10:28 AM CDT Screening for condition LIPID PANEL Routine 06/28/2024 10:28 AM CDT Screening for condition TSH Routine 06/28/2024 10:28 AM CDT Screening for condition GC/CHLAMYDIA, GENITAL Routine 07/20/2017 3:38 PM CDT Risky sexual behavior CERV/VAG CYTOPATH, THIN PREP W/RFLX HPV Routine 07/20/2017 3:38 PM CDT Risky sexual behavior from Last 3 Months or Most Recently Relevant to Health Maintenance Results * (ABNORMAL) CBC WITH DIFFERENTIAL (06/28/2024 10:28 AM CDT) WBC 4.9 3.8 - 10.8 Thousand/ uL [facility] RBC 4.34 3.80 - 5.10 Million/u L [facility] HEMOGLOBIN 12.1 11.7 - 15.5 g/dL [facility] HEMATOCRIT 38.2 35.0 - 45.0 % [facility] MCV 88.0 80.0 - 100.0 fL [facility] MCH 27.9 27.0 - 33.0 pg [facility] MCHC 31.7(L) 32.0 - 36.0 g/dL [facility] Comment: For adults, a slight decrease in the calculated MCHC value (in the range of 30 to 32 g/dL) is most likely not clinically significant; however, it should be interpreted with caution in correlation with other red cell parameters and the patient's clinical condition. RDW 12.6 11.0 - 15.0 % [facility] PLATELETS 311 140 - 400 Thousand/ uL [facility] MPV 10.0 7.5 - 12.5 fL [facility] NEUTROPHIL ABSOLUTE 2,484 1,500 - 7,800 cells/uL [facility] LYMPHOCYTE ABSOLUTE 2,009 850 - 3,900 cells/uL [facility] MONOCYTE ABSOLUTE 338 200 - 950 cells/uL [facility] EOSINOPHIL ABSOLUTE 39 15 - 500 cells/uL [facility] BASOPHILS ABSOLUTE 29 0 - 200 cells/uL [facility] NEUTROPHIL 50.7 % [facility] LYMPHOCYTES 41.0 % [facility] MONOCYTE 6.9 % [facility] EOSINOPHILS 0.8 % [facility] BASOPHILS 0.6 % [facility] Comment: Test Performed at: [facility] [place] [address] [place] [address] [facility] Blood 06/28/2024 10:2 8 AM CDT 06/29/2024 3:06 AM CDT Riddhi Lai MD HEMATOLOGY ORDERABLES Final Re sult Performing Organization Address City/[facility] Code Phone Number [facility] [phone] [place] [address] [place] [address] * TSH (06/28/2024 10:28 AM CDT) TSH 0.70 mIU/L [facility] Comment: Reference Range > or = 20 Years 0.40-4.50 Ranges First trimester 0.26-2.66 Second trimester 0.55-2.73 Third trimester 0.43-2.91 Test Performed at: [place] [address] [place] [address] [facility] Blood 06/28/2024 10:2 8 AM CDT 06/29/2024 3:06 AM CDT Riddhi Lai MD CHEMISTRY ORDERABLES Final Res ult Performing Organization Address City/[facility] Code Phone Number [facility] [phone] [place] [address] [place] [address] * LIPID PANEL (06/28/2024 10:28 AM CDT) CHOLESTEROL 144 <200 mg/dL [facility] HDL 53 > OR = 50 mg/dL [facility] TRIGLYCERIDE 56 <150 mg/dL [facility] LDL CALCULATED 77 mg/dL (calc) [facility] Comment: Reference range: <100 Desirable range <100 mg/dL for primary prevention; <70 mg/dL for patients with CHD or diabetic patients with > or = 2 CHD risk factors. LDL-C is now calculated using the José Luis calculation, which is a validated novel method providing better accuracy than the Friedewald equation in the estimation of LDL-C. Rojelio FALL et al. BRETT. 2013;310(19): 0874-0361 (http://education.PrismTech/faq/UGW749) CHOL/HDL RATIO 2.7 <5.0 (calc) [facility] NON-HDL CHOLESTEROL 91 <130 mg/dL (calc) [facility] Comment: For patients with diabetes plus 1 major ASCVD risk factor, treating to a non-HDL-C goal of <100 mg/dL (LDL-C of <70 mg/dL) is considered a therapeutic option. Test Performed at: [facility] [address] [place] [address] Jessica Cruz Blood 06/28/2024 10:2 8 AM CDT 06/29/2024 3:06 AM CDT us Riddhi Lai MD CHEMISTRY ORDERABLES Final Res ult [facility] [phone] [facility] [address] [address] [place] [address] * COMPREHENSIVE METABOLIC PANEL (06/28/2024 10:28 AM CDT) GLUCOSE 87 65 - 99 mg/dL [facility] Comment: Fasting reference interval BUN 11 7 - 25 mg/dL [facility] CREATININE 0.52 0.50 - 0.96 mg/dL [facility] GFR 131 > OR = 60 mL/min/1. 73m2 [facility] BUN/CREAT RATIO SEE NOTE: (calc) [facility] Comment: Not Reported: BUN and Creatinine are within reference range. SODIUM 137 135 - 146 mmol/L [facility] POTASSIUM 4.1 3.5 - 5.3 mmol/L [facility] CHLORIDE 101 98 - 110 mmol/L [facility] CO2 27 20 - 32 mmol/L [facility] CALCIUM 9.4 8.6 - 10.2 mg/dL [facility] TOTAL PROTEIN 7.1 6.1 - 8.1 g/dL [facility] ALBUMIN 4.7 3.6 - 5.1 g/dL [facility] GLOBULIN 2.4 1.9 - 3.7 g/dL (calc) [facility] ALBUMIN/GLOBULIN RATIO 2.0 1.0 - 2.5 (calc) [facility] BILIRUBIN TOTAL 0.5 0.2 - 1.2 mg/dL [facility] ALKALINE PHOSPHATASE 64 31 - 125 U/L [facility] AST 11 10 - 30 U/L [facility] ALT 6 6 - 29 U/L [facility] Comment: Test Performed at: [place] [address] [address] [address] Jessica [facility] Blood 06/28/2024 10:2 8 AM CDT 06/29/2024 3:06 AM CDT us Riddhi Lai MD CHEMISTRY ORDERABLES Final Res ult [facility] [phone] [facility] [place] [address] [address] [place] [address] * CERV/VAG CYTOPATH, THIN PREP W/RFLX HPV (07/20/2017 3:38 PM CDT) DIAGNOSIS (PAP): Comment [facility] Comment:NEGATIVE FOR INTRAEP ITHELIAL LESION AND MALIGNANCY. ADEQUACY: Comment [facility] Comment: Satisfactory for evaluation. Endocervical and/or squamous metaplastic cells (endocervical component) are present. CLINICIAN PROVIDED ICD10 Comment [facility] Comment: Z72.51 N91.2 PERFORMED BY (PAP): Comment [facility] Comment:Yesi thorpe, Thread Laster (ASCP) RESULT (PAP): . [facility] SEE NOTE (PAP): Comment [facility] Comment: The Pap smear is a screening test designed to aid in the detection of premalignant and malignant conditions of the uterine cervix. It is not a diagnostic procedure and should not be used as the sole means of detecting cervical cancer. Both false-positive and false-negative reports do occur. COMMENT (HPV): Comment [facility] Comment: The HPV DNA reflex criteria were not met with this specimen result therefore, no HPV testing was performed. Genital SWAB OF ENDOCERVIX / Unknown 07/20/2017 3:38 PM CDT 07/21/2017 Narrative [facility] - 07/22/2017 10:37 AM CDT Performed at: [address] [place] [id number] Trade Recruiter: Rossy Mejia MD, Phone: [phone] Specimen Comment: No. of containers..01 ThinPrep Vial us Yessenia Heath NP PATHOLOGY/CYTOLOGY [facility] Final Result Performing Organization Address City/[facility] Co de Phone Number [facility] * GC/CHLAMYDIA, GENITAL (07/20/2017 3:38 PM CDT) CHLAMYDIA TRACHOMATIS DNA Negative Negative [facility] NEISSERIA GONORRHOEAE DNA Negative Negative [facility] Genital SWAB OF ENDOCERVIX / Unknown 07/20/2017 3:38 PM CDT 07/20/2017 Narrative [facility] - 07/22/2017 4:36 AM CDT Performed at: [facility] [id number] Trade Recruiter: Rossy Mejia MD, Phone: [phone] us Yessenia Heath NP MICRO - GEN ORDERABLES COM Final Result Performing Organization Address City/[facility] Co de Phone Number [facility] from Last 3 Months or Most Recently Relevant to Health Maintenance Insurance [employer]LEGIANCE OPEN ACCESS * Guarantor: [employer] D (C) Account Type Relation to Patient Date of Phone Billing Address Corporate Employer ATTN: ROCIO BISHOP [address] [address] [facility] * Guarantor: [employer] Account Type Relation to Patient Date of Phone Billing Address Corporate Employer ATTN: 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
--- OUTSIDE RECORDS SUMMARY | 2024-07-31 08:41 | XMS_ITS ---
Author Organization [facility] [place] ([address]) Address [address] [place] [address] [address] Prov[address] Care Court Registry Officer Name Role Phone Rosita Queen Unavailable [phone] Juvenal Shine Unavailable Unavailable REASON FOR VISIT [facility] follow-up Encounters Encounter Location Date Provider Diagnosis [facility] [address] [place] [address] 04/28/2023 Rosita Queen Plan Of Treatment No Information Progress Notes * Yani FOSTERDOB: [birth year] (28 yo M)Acc No.[id number]:04/28/2023 Progress Notes Patient: Yani CLARKE Provider: LUZ ELENA Mckeon :1995 A ge:27 Y S ex:Male Date:04/28/2023 [address] [facility] Subjective: * Chief Complaints: * 1 . [facility] follow-up. * Medical History: Objective: * Vitals: Assessment: Plan: * Treatment: * Billing Information: * Visit Code: * Procedure Codes: * Electronic signature of LUZ ELENA Mai on 07/31/2024 at 08:41 AM CDT Sign off status: Pending * Provider: LUZ ELENA Mckeon Date: 0 04/28/2023 Generated for Viktor juarez/Elieser/Ralf on: 0 07/31/2024 08:41 AM CDT
--- OUTSIDE RECORDS SUMMARY | 2024-07-31 08:41 | XMS_ITS | Encounter Summary ---
Author Organization [facility] Address [address] [place] [address] Care Team Providers Care Dramatic Teacher Name Role Phone Jennifer Miranda DO Primary Care Provider [phone] Encounter Details Date Type Department Care Team (Late st Contact Info) Description 07/19/2024 MyChart Message Enc [place] [address] [address] [facility] [address] [place] [address] Jennifer Miranda DO [address] [place] [address] Eczema Social History Tobacco Use Types Packs/Day Years Used Date Smoking Tobacco: Former Cigarettes 5 2 0 04/2018 - 04/2020 Smokeless Tobacco: Never Comments:Quit April 2020. Alcohol Use Standard Drinks/Week Comments Not Currently 0 (1 standard drink = 0.6 oz pure alcohol) Socially- 2 mixed drinks per month at most PHQ-2 Answer Date Recorded Patient Health Questionnaire-2 Score 0 05/05/2024 Comments No Sex and Gender Information Value Date Recorded Sex Assigned at Female 05/05/2024 11:17 AM AFTERSCHOOL BABYSITTER Legal Sex Female 12:31 PM AFTERSCHOOL BABYSITTER Gender Identity Female 05/05/2024 11:24 AM AFTERSCHOOL BABYSITTER Sexual Orientation Not on file documented as of this encounter Plan of Treatment Upcoming Encounters Date Type Department Care Team (Late st Contact Info) Description 08/21/2024 11:20 AM CDT Office Visit [facility] [address] [facility] [address] [place] [address] Jennifer Miranda DO [address] [place] [address] documented as of this encounter Visit Diagnoses Not on filedocumented in this encounter Additional Health Concerns Assessment Noted Time PHQ-9 Depression Total Score: 1 05/05/19 25 11:37 AM AFTERSCHOOL BABYSITTER documented as of this encounter Care Teams Dramatic Teacher Relationship Specialty Start Date End Date Jennifer Miranda DO [address] [place] [address] PCP - General FAMILY PRACTICE 04/24/24 documented as of this encounter
--- OUTSIDE RECORDS SUMMARY | 2024-07-31 08:41 | XMS_ITS | Referral Summary ---
Author Organization [facility] Address [address] [place] [address] Care Team Providers Care Biomedical Engineering Internship Name Role Phone No, Physician Primary Care Provider [phone] Allergies No known active allergies Medications rizatriptan FIRE EATER (MAXALT-FIRE EATER) 10 mg disintegrating tabletIndications:M igraine Take one tablet by mouth (sublingual dissolving) as needed for headache. May repeat in 2 hours if unresolved. Do not exceed 30 mg in 24 hours. 9 tablet 3 3 Active topiramate (TOPAMAX) 50 mg tablet TAKE 1 TABLET BY MOUTH TWICE DAILY 60 tablet 3 3 Active Active Problems Problem Noted Date Diagnosed Date Chronic migraine without aur a without status migrainosus, not intractable 10/14/2021 Social History Tobacco Use Types Packs/Day Years Used Date Smoking Tobacco: Never Tobacco Cessation:Counseling Given: No Personal Safety Answer Date Recorded Getting School Help Needed Not on file 03/26 Comments Unknown Sex and Gender Information Value Date Recorded Sex Assigned at Not on file Legal Sex Female 10:54 AM CDT Gender Identity Not on file Sexual Orientation Not on file Last Filed Vital Signs Vital Sign Reading Time Taken Comments Blood Pressure 113/77 07/29/2022 9:16 AM CDT Pulse 72 07/29/2022 9:16 AM CDT Temperature - - Respiratory Rate 18 07/29/2022 9:16 AM CDT Oxygen Saturation 98% 07/29/2022 9:16 AM CDT Inhaled Oxygen Concentration - - Weight 68.9 kg (152 lb) 07/29/2022 9:16 AM CDT Height 157.5 cm (5' 2 ) 07/29/2022 9:16 AM CDT Body Mass Index 27.8 07/29/2022 9:16 AM CDT Plan of Treatment Not on file Insurance JOSIAH ALLEGIANCE Care Teams Biomedical Engineering Internship Relationship Specialty Start Date End Date No, Physician PCP - General 07/29/22
--- OUTSIDE RECORDS SUMMARY | 2024-07-31 08:41 | XMS_ITS | Clinical Summary ---
Author Organization [facility] Address [address] [place] [address] Care Team Providers Care Global Program Director Name Role Phone Jennifer Miranda DO Primary Care Provider [phone] Allergies No known active allergies Medications Cyanocobalamin (B-12) 50 MCG Tab Active XHANCE 93 MCG/ACT Exhaler Suspension 2 sprays by Alternating Nostril route daily. 4 Active Magnesium Gluconate (MAGNESIUM 27 OR) Active vitamin D3 (CHOLECALCIFERO L) 25 mcg tablet Take 1 tablet (25 mcg total) by mouth daily. 1000 IU Active Active Problems Problem Noted Date Diagnosed Date Cervicogenic headache 06/23/2024 Assessment & Plan (06/23/2024 1:54 PM CDT): I suspect patient's recent headaches are cervicogenic in nature. Discussed with patient that I expect improvement upon initiation of CPAP therapy for obstructive sleep apnea. Patient may also benefit from postural retraining or other physical therapy modalities. Physical therapy referral placed. She can continue as needed Excedrin or Tylenol. Muscle relaxer prescribed that patient can take once nightly for the next 3-4 nights. She is counseled on potential side effects of medication. Need for prophylactic vaccin ation against human papillomavirus 05/19/2024 Overview (05/19/2024): 05/19/2024: Patient has received 1 previous dose of Gardasil vaccine per record 09/26/2012. Assessment & Plan (05/19/2024 12:26 PM EXPERIMENTAL ASSEMBLER): Discussed with patient that I would like to complete dose series of 3 doses and we can give her her second dose today in office. She denies known yeast allergy. She was provided CDC VIS and endorsed no questions. She is counseled on potential side effects that she may experience. Allergic rhinitis due to animal hair and dander 05/05/2024 Allergic rhinitis due to pollen 05/05/2024 Overview (05/05/2024): Initial visit 05/05/2024: She reports she has had formal allergy testing the past. She reports she currently follows with ENT. She reports she is using prescription fluticasone nasal spray daily. Chronic tension-type headache 05/05/2024 Overview (05/19/2024): Initial visit 05/05/2024: She reports she has tension headaches regularly. She denies current headache. 05/19/2024: She reports she has headache currently. She is asking if it is okay for her to take Excedrin as she is getting vaccine today. Assessment & Plan (05/19/2024 12:29 PM EXPERIMENTAL ASSEMBLER): Okay for patient to take Excedrin to help with headache. Obstructive sleep apnea syndrome 05/05/2024 Overview (06/23/2024): Initial visit 05/05/2024: She reports she has been diagnosed with mild obstructive sleep apnea via sleep study completed approximately February 2024 ordered by ENT. She reports she was having times of snoring and witnessed episodes of apnea. She reports she has second upcoming sleep study scheduled for 06/05/2024. Follows with [facility]. 06/23/2024: Reports she finished titration study and picks up CPAP on 07/05/2024. Assessment & Plan (06/23/2024 1:52 PM CDT): Discussed with patient that I expect her headaches and some other things to improve upon initiating CPAP therapy for her sleep apnea. Assessment & Plan (05/05/2024 1:17 PM EXPERIMENTAL ASSEMBLER): Discussed with her feelings of fatigue among other difficulties such as GERD could potentially be related to her obstructive sleep apnea. Is currently untreated. Vitamin B12 deficiency 05/05/2024 Overview (05/05/2024): Initial visit 05/05/2024: She reports she takes vitamin B12 supplement daily as labs have been decreased in the past. Assessment & Plan (06/23/2024 1:53 PM CDT): Vitamin B12 levels drawn today Assessment & Plan (05/19/2024 12:26 PM EXPERIMENTAL ASSEMBLER): Vitamin B12 levels drawn today Assessment & Plan (05/05/2024 1:26 PM EXPERIMENTAL ASSEMBLER): Instructed to withhold vitamin B12 supplementation for at least 72 hours and we will recheck vitamin B12 levels. History of vertigo 05/05/2024 Overview (05/05/2024): Initial visit 05/05/2024: She reports she has had issues with vertigo in the past occurring at most 3 days consecutively but generally 1-3 days. She reports the last episode approximately a few months ago. She reports it's related to neck stiffness. She is not currently experiencing vertigo symptoms. Cervical cancer screening 05/05/2024 Overview (05/05/2024): Initial visit 05/05/2024: Last pap 07/23/[address] Jose Jack was negative for intraepithelial lesion or malignancy. Assessment & Plan (05/05/2024 1:29 PM EXPERIMENTAL ASSEMBLER): Requesting records. Gastroesophageal reflux disease without esophagi tis 05/05/2024 Overview (06/23/2024): Initial visit 05/05/2024: She reports she was diagnosed with GERD by ENT and started on omeprazole 20 mg daily. She denies previously having upper endoscopy. She denies previously being tested for H. pylori. She reports her throat is often sore which she suspects is due to to reflux. 05/19/2024: Stopped omeprazole 20mg daily on 05/04/2024. She reports her reflux symptoms have improved over the last few days however she has had a stomach bug. 06/23/2024: She reports reflux is improved. She reports she is watching how late she eats at nighttime among other things. Assessment & Plan (06/23/2024 1:55 PM CDT): Will continue to monitor. Discussed with patient that reflux may also improve upon initiation of treatment for sleep apnea. Assessment & Plan (05/19/2024 12:27 PM EXPERIMENTAL ASSEMBLER): H. pylori stool antigen testing ordered to [employer] [facility] [employer]. Patient has been off of PPI for 2 weeks. If positive, will proceed with treatment. Assessment & Plan (05/05/2024 1:29 PM EXPERIMENTAL ASSEMBLER): Counseled patient that we could consider discontinuing omeprazole for 2 weeks / 14 days at least and perform stool antigen based testing for Helicobacter pylori if she can tolerate being off of omeprazole. She is counseled that she can take Tums during this time. She is agreeable to proceeding with this at this time. If H. pylori testing negative, could consider referring to GI/general surgery for potential upper endoscopy. Also discussed with patient that some if not all of her GERD symptoms could also be related to her untreated obstructive sleep apnea. Discussed with her at length regarding dietary modification such as avoiding chocolate, mint, citrus based foods, tomato-based foods, caffeine, alcohol, spicy foods, fried foods/greasy foods, among others that may exacerbate symptoms. She is also counseled to avoid eating food 3 to 4 hours prior to bedtime. HPV vaccine counseling 05/05/2024 Overview (05/05/2024): Initial visit 05/05/2024: Per chart review, patient has received 1 Gardasil vaccine in the past 10/06/2012. Assessment & Plan (05/05/2024 1:49 PM EXPERIMENTAL ASSEMBLER): Discussed with patient that is recommended to complete Gardasil vaccine series as can help prevent HPV related cervical cancers as well as head and neck cancers. It appears to be recommended that patient will need to complete 2 additional doses of Gardasil to receive full series. Former smoker 05/05/2024 Overview (05/05/2024): Initial visit 05/05/2024: She reports she smoked cigarettes approximately 1/4 pack/day for 2 years. She reports she was vaping nicotine prior to switching to cigarettes for 1 year. She reports she also previously smoked marijuana products. She is currently not smoking any nicotine or tobacco products. Assessment & Plan (05/05/2024 1:24 PM EXPERIMENTAL ASSEMBLER): Counseled to not start smoking again. Recurrent major depressive disorder, in full rem ission 05/05/2024 Overview (05/05/2024): Initial visit 05/05/2024: She reports she has had previous episodes of depression and has been on Lexapro in the past however is not currently on any medication. She reports last time she is on medication was at least a year ago. She reports most of her depression was related to state however has had previous anxiety and depression in the past. She reports her mood is doing well at this time and has no concerns. PHQ-2 Score PHQ-2 Score: 0 PHQ-9: 05/05/2024 11:37 AM PHQ2/PHQ 9 DEPRESSION SCREEN QUESTIONAIRE Little interest or pleasure in doing things Not at all Feeling down, depressed, or hopeless Not at all Patient Health Questionnaire-2 Score 0 Trouble falling or staying asleep, or sleeping too much Not at all Feeling tired or having little energy Several days Poor appetite or overeating Not at all Feeling bad about yourself - or that you are a failure or have let yourself or your family down Not at all Trouble concentrating on things, such as reading the newspaper or watching television Not at all Moving or speaking so slowly that other people could have noticed? Or the opposite - being so fidgety or restless that you have been moving around a lot more than usual. Not at all Thoughts that you would be better off or hurting yourself in some way Not at all Patient Health Questionnaire-9 Score 1 How difficult have these problems made it for you to do your work, take care of things at home, or get along with other people? Not difficult at all Assessment & Plan (05/05/2024 1:22 PM EXPERIMENTAL ASSEMBLER): Depression screening is negative. Discussed with patient that I have no concerns however if her mood changes, I would like her to bring it up to myself or another medical provider. History of depression 05/05/2024 Overview (05/05/2024): Initial visit 05/05/2024: She reports she had anxiety and depression has been treated with Lexapro in the past. She reports her mood is doing well currently. History of anxiety 05/05/2024 Other chest pain 05/05/2024 Overview (06/23/2024): Initial visit 05/05/2024: Reports she has intermittent random episodes of chest pain that occur as stabbing , sharp pains in the center of her chest. 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 She reports the episodes of pain last a few seconds generally 5 to 10 seconds and are improved by stretching her arms. She reports they generally occur every day or every other day. She denies pressure in her chest. Denies radiation of the pain. 06/23/2024: She reports she still continues to have intermittent chest pains. Assessment & Plan (05/05/2024 1:19 PM EXPERIMENTAL ASSEMBLER): Pain is reproducible on exam to palpation. Suspect costochondritis. This also could be potentially related to her GERD. Discussed with patient that this is atypical chest pain that is not concerning for cardiac etiology at this time. Discussed that we could use oral or topical NSAIDs however at this time I would like to continue to monitor and avoid NSAIDs in the setting of her GERD. History of nicotine vaping 05/05/2024 Overview (05/05/2024): Initial visit 05/05/2024: She reports she previously vaped nicotine products prior to switching to cigarettes however is not currently using. Uses withdrawal method for control Overview (05/05/2024): Initial visit 05/05/2024: She reports her and her fianc primarily uses pullout method as primary form of control. She denies using condoms. She is not interested in any hormonal contraceptive at this time. She reports she is not interested in at this time. Assessment & Plan (05/05/2024 1:40 PM EXPERIMENTAL ASSEMBLER): Discussed with patient that this method that she is using is not very reliable when it comes to prevention and that she may experience unintentional using this method. Patient endorses verbal understanding. Dyshidrotic eczema 03/30/2023 Overview (06/23/2024): Images from the original note were not included. Initial visit 05/05/2024: This is one of her main concerns for presentation. She reports she has had eczema primarily on her hands for a while. She reports it has been a year or so since received any treatment. She reports she was using unknown name topical preparation prescription that helped improve symptoms. She reports symptoms have been worse in the past than the other currently. She complains of itching. She denies seeing dermatology in the past. 05/19/2024: She reports she has been using triamcinolone ointment twice daily and she has had improvement in her eczema on her hands. She has no complaints or concerns regarding medication. 06/23/2024: She reports improvement of eczema however started to return. She is using triamcinolone ointment as needed at this time. Assessment & Plan (06/23/2024 1:53 PM CDT): Continue triamcinolone ointment as needed. Will continue to monitor Assessment & Plan (05/19/2024 12:31 PM EXPERIMENTAL ASSEMBLER): Eczematous areas have improved. She continues to have some dry patchy areas remaining especially overlying base of left thumb. Discussed with patient and I would like to continue using steroid ointment twice daily for at least 1 week until areas have completely resolved. And then we can discontinue and use as needed. Assessment & Plan (05/05/2024 1:34 PM EXPERIMENTAL ASSEMBLER): Mild dyshidrotic eczema present. Discussed with patient that I would like to use hypodensity Kenalog 0.5% ointment twice daily for at least 2 weeks and have patient return for reevaluation. She is counseled to apply a thin film of steroid ointment and can use occlusive ointment such as Aquaphor/Vaseline on top of the steroid ointment to help maintain occlusive barrier to promote healing. Overnight, recommended that she wear gloves to help prevent ointment from getting on her bed sheets and clothing. If lesions resolve, will consider tapering steroid and continue to monitor. Insomnia 09/08/2022 Irritable bowel syndrome with constipation 09/04 Overview (05/05/2024): Initial visit 05/05/2024: She reports she has primarily constipation based symptoms if she is not eating well. She denies current concerns of constipation. Assessment & Plan (05/05/2024 1:26 PM EXPERIMENTAL ASSEMBLER): Stable. Continue to monitor. Non-refractory chronic migraine without aura Overview (05/05/2024): Initial visit 05/05/2024: She reports she has previously experienced migraine headaches. She is not currently experience headache at this time. She denies prescription treatment for migraine headaches. Vitamin D deficiency 03/31/2019 Overview (05/05/2024): Initial visit 05/05/2024: She reports she is taking vitamin D 1000 IU daily. On chart review, patient last had vitamin D levels checked 07/23/2023 and levels were at 26. Assessment & Plan (05/19/2024 12:25 PM EXPERIMENTAL ASSEMBLER): Vitamin D levels drawn today Assessment & Plan (05/05/2024 1:21 PM EXPERIMENTAL ASSEMBLER): Instructed to withhold vitamin D supplementation for at least 72 hours and we will recheck vitamin D levels. Resolved Problems Problem Noted Date Diagnosed Date Resolved Date Anxiety disorder 05/05/2024 05/05/2024 Obesity 05/05/2024 05/05/2024 Acute sinusitis 09/15/2022 05/05/2024 Vertigo 09/15/2022 05/05/2024 Acute left otitis media 09/08/202204/22 Depressive disorder 09/04/2022 05/05/19 25 Panic attack 09/04/2022 05/05/2024 ([facility]) 06/25/2021 05/05/19 25 Moderate episode of recurren t major depressive disorder 12/01/2018 05/05/2024 Encounters Date Type Department Care Team Description 07/19/2024 MyChart Message Enc [facility] [address] [place] [address] Jennifer Miranda, Eczema 07/07/2024 10:15 AM CDT Office Visit [facility] [address] [place] [address] Jennifer Miranda, Josie Thomas, PT Cerv Pain 07/07/2024 Travel 06/23/2024 12:40 PM CDT Office Visit [facility] [address] [place] [address] Jennifer Miranda, GERD (Pt states it has been better. No questions or concerns today ); Follow Up (Eczema); Headache 06/23/2024 Travel 06/12/2024 Telephone [facility] [address] [place] [address] Jennifer Miranda, Lab Results 05/19/2024 11:40 AM EXPERIMENTAL ASSEMBLER Office Visit [facility] [address] [place] [address] Jennifer Miranda, Eczema (2 week follow up. /No questions or concerns. ) 05/19/2024 Orders Only [facility] [address] [place] [address] Sallie Ayala MA 05/19/2024 Travel 05/05/2024 11:20 AM EXPERIMENTAL ASSEMBLER Office Visit [facility] - [address] [place] [address] Jennifer Miranda, New Patient (Needing new PCP. /Pt states she see an ENT at [facility] for chronic [facility] issues. / Wants to discuss HPV vaccine /); Eczema (Pt states she would like some [facility] cream for her Eczema. ); Pain (Pt states sometimes she has a stabbing pain that comes and goes in mid chest. ) 05/05/2024 Travel from Last 3 Months Immunizations Immunization Administration Dates Next Due DTaP (Daptacel) 02/18/1998, 7,1996,07/1996 HPV GARDASIL 9-VALENT 05/19/2024 HPV4 (Gardasil) 09/26/2012 Hepatitis A (Generic) 11/21/2009,06/27/2008 Hepatitis B Pediatric 04/05/1997,1996,06/1996 Hib (Omni-Hib) 05/27/1998 Influenza Adult (Generic) 12/11/2014 MENINGOCOCCAL A C Y&W-135 oligosaccharide (MENVEO) 07/26/2012 MMR (MMRII) 02/18/1998 Polio Opv (Generic) 02/18/1998, 7,1996,07/1996 Tdap (Generic) 11/12/2021,12/11/2014,11/29/2006 Varicella (Varivax) 11/29/2006 Family History Medical History Relation Comments No Known Problems Daughter Nicotine dependence Father No Known Problems Half-brother No Known Problems Half-sister Breast Cancer Maternal Aunt No Known Problems Maternal Grandfather No Known Problems Maternal Grandmother Diabetes type II Mother No Known Problems Paternal Grandfather No Known Problems Paternal Grandmother No Known Problems Sister 1 No Known Problems Sister 2 Allergies Son Relation Status Comments Daughter Alive Father Half-brother Alive Half-sister Alive Maternal Aunt Alive Maternal Grandfather Maternal Grandmother Mother Alive Paternal Grandfather Paternal Grandmother Sister 1 Alive Sister 2 Alive Son Alive Social History Tobacco Use Types Packs/Day Years Used Date Smoking Tobacco: Former Cigarettes 5 2 0 04/2018 - 04/2020 Smokeless Tobacco: Never Tobacco Cessation:Counseling Given: No Comments:Quit April 2020. Alcohol Use Standard Drinks/Week Comments Not Currently 0 (1 standard drink = 0.6 oz pure alcohol) Socially- 2 mixed drinks per month at most PHQ-2 Answer Date Recorded Patient Health Questionnaire-2 Score 0 05/05/2024 Comments No Sex and Gender Information Value Date Recorded Sex Assigned at Female 05/05/2024 11:17 AM EXPERIMENTAL ASSEMBLER Legal Sex Female 12:31 PM EXPERIMENTAL ASSEMBLER Gender Identity Female 05/05/2024 11:24 AM EXPERIMENTAL ASSEMBLER Sexual Orientation Not on file Last Filed Vital Signs Vital Sign Reading Time Taken Comments Blood Pressure 117/72 06/23/2024 1:00 PM CDT Pulse 86 06/23/2024 1:00 PM CDT Temperature 36.3 C (97.4 F) 06/23/2024 1:00 PM CDT Respiratory Rate 16 06/23/2024 1:00 PM CDT Oxygen Saturation 98% 06/23/2024 1:00 PM CDT Inhaled Oxygen Concentration - - Weight 72.1 kg (159 lb) 06/23/2024 1:00 PM CDT Height 157.5 cm (5' 2 ) 06/23/2024 1:00 PM CDT Body Mass Index 29.08 06/23/2024 1:00 PM CDT Plan of Treatment Upcoming Encounters Date Type Department Care Team (Late st Contact Info) Description 08/21/2024 11:20 AM CDT Office Visit [facility] - [place] [address] [place] [address] Jennifer Miranda, DO [address] [place] [address] Health Maintenance Due Date Last Done Comments Annual Physical 08/24/1999 HPV Vaccines (3 - 3-dose series) 08/11/2024 05/19/2024, 09/26/2012 COVID-19 Vaccine ( season) 2025 02/07/2021, 01/17/2021 Postponed from 11/21/2023 (Patient Refused) Cervical Cancer Screening Pap Smear (Age 21 to 29) Every 3 Years 07/23/2026 10/14/2023, 07/23/2023, 07/23/2023, Additional history exists Cervical Cancer Screening 07/23/2026 DTaP, Tdap and Td Vaccines (8 - Td or Tdap) 11/13/2031 11/12/2021, 12/11/2014, 11/29/2006, Additional history exists Hepatitis B Vaccines Completed 04/05/1997, 1996, 1996 Meningococcal Vaccine Aged Out 07/26/2012 No lazaro dorina eligible based on patient's age to complete this topic Hepatitis C Completed 10/14/2023, 0707/2023, 10/14/2023 PHQ-2 (Physician [place]) Completed 05/05/2024 Meningococcal B Vaccine Aged Out No l onger eligible based on patient's age to complete this topic Pneumococcal Vaccine: Pediatrics (0 to 5 Years) and At-Risk Patients (6 to 49 Years) Aged Out No longer eligible based on patient's age to complete this topic RSV Immunizations Under 20 Months Aged Out No longer eligible based on patient's age to complete this topic Procedures Procedure Name Priority Date/Time Associated Diagnosis Comments VITAMIN B-12 Routine 06/23/2024 1:07 PM CDT Vitamin B12 deficiency HELICOBACTER PYLORI, STOOL, EIA Routine 05/26/2024 8:36 AM EXPERIMENTAL ASSEMBLER Gastroesophageal reflux disease without esophagitis URINALYSIS, AUTO, COMPLETE Routine 05/19/2024 3:11 PM EXPERIMENTAL ASSEMBLER Screening for blood or protein in urine VITAMIN D, 25 OH Routine 05/19/2024 3:11 PM EXPERIMENTAL ASSEMBLER Vitamin D deficiency HEPATITIS C ANTIBODY Routine 10/14/2023 OUTSIDE CYTOPATH CERV/VAG INTERPRET (PAP) 07/23/2023 from Last 3 Months or Most Recently Relevant to Health Maintenance Results * VITAMIN B-12 (06/23/2024 1:07 PM CDT) VITAMIN B12 S/P/B [id number] 193 - 986 PG/ML 06/23/2024 8:21 PM CDT [facility] 06/23/2024 1:07 PM CDT Jennifer Miranda DO LABORATORY Final Result Performing Organization Address City/[facility] [address] [facility]/ZIP Co de Phone Number [facility] [address] [place] [address], * HELICOBACTER PYLORI, STOOL, EIA (05/26/2024 8:36 AM EXPERIMENTAL ASSEMBLER) H. PYLORI AG (STOOL) [facility] [place] Comment: HELICOBACTER PYLORI AG, EIA, STOOL Micro Number: [id number] Test Status: Final Specimen Source: Stool Specimen Quality: Adequate H.pylori Ag: Not Detected Antimicrobials, proton pump inhibitors, and bismuth preparations inhibit H. pylori and ingestion up to two weeks prior to testing may cause false negative results. If clinically indicated the test should be repeated on a new specimen obtained two weeks after discontinuing treatment. Reference Range: Not Detected STOOL SPECIMEN / Unknown 05/26/2024 8:36 AM EXPERIMENTAL ASSEMBLER 05/27/2024 5:46 AM EXPERIMENTAL ASSEMBLER Narrative Resulting Agency Comment Performing Organization Information: Site ID: Name: [facility] Address: [facility] [place] [address] Director: Jessica Cruz Jennifer Miranda DO MICROBIOLOGY - GENERAL ORDERA BLES Final Result Performing Organization Address City/[facility]/ZIP Co de Phone Number [facility] [address] [address], * (ABNORMAL) URINALYSIS (05/19/2024 3:11 PM EXPERIMENTAL ASSEMBLER) COLOR (U) YELLOW 05/19/2024 7:47 PM EXPERIMENTAL ASSEMBLER [facility] TRANSPARENCY CLOUDY(A) CLEAR 05/19/2024 7:47 PM EXPERIMENTAL ASSEMBLER [facility] SPECIFIC GRAVITY (U) >1.030 1.003 - 1.040 05/19/2024 7:47 PM [facility] U PH 6.0 5.0 - 9.0 05/19/2024 7:47 PM EXPERIMENTAL ASSEMBLER [facility] PROTEIN RANDOM (U) NEGATIVE NEGATIVE 05/19/2024 7:47 PM [facility] GLUCOSE (U) NEGATIVE NEGATIVE 05/19/2024 7:47 PM EXPERIMENTAL ASSEMBLER [facility] KETONES MG/DL (U) TRACE(A) NEGATIVE 05/19/2024 7:47 PM [facility] BILIRUBIN (U) NEGATIVE NEGATIVE 05/19/2024 7:47 PM [facility] BLOOD (U) 2+(A) NEGATIVE 05/19/2024 7:47 PM [facility] UROBILINOGEN 1.0 0.0 - 2.0 EU/DL 05/19/2024 7:47 PM EXPERIMENTAL ASSEMBLER [facility] NITRITES NEGATIVE NEGATIVE 05/19/2024 7:47 PM [facility] LEUKOCYTES (U) NEGATIVE NEGATIVE 05/19/2024 7:47 PM [facility] RBC/HPF 0-3 0 - 3 /HPF 05/19/2024 7:47 PM [facility] WBC/HPF 0-3 0 - 3 /HPF 05/19/2024 7:47 PM EXPERIMENTAL [employer]SEM[employer] [facility] EPI/HPF 0-3 /HPF 05/19/2024 7:47 PM EXPERIMENTAL ASSEMBLER [facility] BACTERIA (U) 4+(A) NONE SEEN 05/19/2024 7:47 PM EXPERIMENTAL ASSEMBLER [facility] MUCUS FEW 05/19/2024 7:47 PM EXPERIMENTAL ASSEMBLER [facility] AMORPHOUS SEDIMENT PRESENT 05/19/2024 7:47 PM EXPERIMENTAL ASSEMBLER [facility] URINE SPECIMEN FROM URETHRA / Unknown 05/19/2024 3:11 PM EXPERIMENTAL ASSEMBLER Jennifer Miranda DO URINE ORDERABLES Final Result Performing Organization Address [facility] de Phone Number [facility] [address] [place] [address], * (ABNORMAL) VITAMIN D 25 OH ([facility] ONLY) (05/19/2024 3:11 PM EXPERIMENTAL ASSEMBLER) VITAMIN D 25 HYDROXY TOTAL S/P/B 23.8(L) 30 - 100 NG/ML 05/19/2024 7:50 PM EXPERIMENTAL ASSEMBLER [facility] Comment: DEFICIENT <20 INSUFFICIENT 20-30 SUFFICIENT 30-100 05/19/2024 3:11 PM EXPERIMENTAL ASSEMBLER Jennifer Miranda DO LABORATORY Final Result Performing Organization Address [facility] de Phone Number [facility] [address] [place] [address], * HEPATITIS C ANTIBODY (10/14/2023) 10/14/2023 Narrative Viv Strange MA - 10/14/2023 Non reactive Default History Genericprovider LABORATORY Final Result * PAP SMEAR WITH HPV (07/23/2023) 07/23/2023 [facility] Scanned SCANNING Final Resu lt from Last 3 Months or Most Recently Relevant to Health Maintenance Insurance [facility] Care Teams Global Program Director Relationship Specialty Start Date End Date Jennifer Miranda DO [address] [place] [address] PCP - General FAMILY PRACTICE 04/24/24
--- OUTSIDE RECORDS SUMMARY | 2024-07-31 08:41 | XMS_ITS | Patient Health Record ---
Author Organization Formerly [facility] [place] ([address]) Address [address] [place] [address] Care Team Providers Care Hand Painter Name Role Phone Bret Rosita Unavailable [phone] Juvenal Shine Unavailable Unavailable Ricky Recinos Unavailable [phone] [employer], Provider Unavailable Unavailab le Allergies No Known Allergies Reason For Referral No Information Medications Medication SIG (Take, Route, Frequency, Duration) Notes Start Date End Date Status FLUTICASONE NASAL 50 mcg/inh 2 spray(s) in each nostril BID for 30 day(s) Active Fluticasone Propionate 50 MCG/ACT 2 spray(s) in each nostril BID for 30 day(s) Active CETIRIZINE 10 mg 1 tab(s) orally once a day for 30 days Active Cetirizine HCl 10 MG 1 tab(s) orally once a day for 30 days Active EpiPen 2-Alexys 0.3 MG/0.3ML as directed intramuscularly once Active NASAL WASHES N/A DIRECTED INTRANASALLY NEEDED for 30 *Please review for potential replacement for e-prescription and drug interaction check* Active FLUTICASONE NASAL 50 mcg/inh 1-2 spray(s) in each nostril once a day Active LEXAPRO 10 mg 1 tab(s) orally once a day Active EPIPEN 2-ALEXYS 0.3 mg as directed intramuscularly once Active RIZATRIPTAN 10 mg 1 tab(s) orally twice daily for 30 days As needed 04/07/2023 Active Lexapro 10 MG 1 tab(s) orally once a day Active Fluticasone Propionate 50 MCG/ACT 1-2 spray(s) in each nostril once a day Active Rizatriptan Benzoate 10 MG 1 tab(s) orally twice daily for 30 days 04/07/2023 Active RESMED AIRSENSE 11 E0601 APAP 6-20 CM H2O A7033 - NASAL PILLOWS, AND ALL OTHER RELATED CPAP SUPPLIES NIGHTLY for 30 DAYS *Please review for potential replacement for e-prescription and drug interaction check* 01/11/2023 Active Social History Tobacco Use: Social History Observation Description Date Details (start date - stop date) Former Smoker NA - NA Smoking Smart Form: Question Answer Notes Are you a: former smoker Problems Problem Type SNOMED Code ICD Code Onset Dates Problem Status W/U Status Risk Notes Problem Anxiety disorder (083717753) Anxiety disorder, unspecified (F41.9) Active confirmed Problem Chronic migraine without aura, non-intractable (754214667380418) Chronic migraine without aura, not intractable, without status migrainosus (G43.709) Active confirmed Problem Chronic tension-type headache (523340771) Chronic tension-type headache, intractable (G44.221) Active confirmed Problem Sleep apnea (33497791) Sleep apnea, unspecified (G47.30) Active confirmed Problem Obstructive sleep apnea syndrome (disorder) (10254100) Obstructive sleep apnea (adult) (pediatric) (G47.33) Active confirmed Problem Chronic allergic conjunctivitis (07241033) Other chronic allergic conjunctivitis (H10.45) Active confirmed Problem Allergic rhinitis caused by pollen (disorder) (65571854) Allergic rhinitis due to pollen (J30.1) Active confirmed Problem Allergic rhinitis caused by animal hair and dander (677426062981776) Allergic rhinitis due to animal (cat) (dog) hair and dander (J30.81) Active confirmed Problem Allergic rhinitis (53288185) Other allergic rhinitis (J30.89) Active confirmed Problem Snoring (41564847) Snoring (R06.83) Active confirmed Problem Obesity (863877498) Obesity, unspecified (E66.9) Active confirmed Problem Sleep disorder (27476448) Other sleep disorders (G47.8) Active confirmed Problem Hypersomnia (95253771) Hypersomnia, unspecified (G47.10) Active confirmed Encounters Encounter Location Date Provider Diagnosis [facility] [address] [place] [address] 09/04/2023 Provider Eric Allergic rhinitis due to pollen J30.1 [facility] [address] [place] [address] 08/10/2023 Ricky Recinos Assessments Encounter Date Diagnosis (ICD Code) Assessment Notes Treatment Notes Treatment Clinical Notes Section Notes 09/04/2023 Allergic rhinitis due to pollen (ICD-10 - J30.1) Plan Of Treatment No Information Insurance Providers Payer Name Payer Address Payer Phone Subscriber Number Group Number Insured Name Patient Relationship to Insured Coverage Start Date Coverage End Date [employer] [address] [place] [address] [id number] Karime Foster Self - patient is the insured Medical (General) History Medical History History ICD Code Anxiety disorder, unspecified F41.9 Depression, unspecified F32.A SON
--- OUTSIDE RECORDS SUMMARY | 2024-07-31 08:41 | XMS_ITS | Clinical Summary ---
Author Organization [facility] Address [address] [place] [address] Care Team Providers Care Tinsmith Helper Name Role Phone No, Physician Primary Care Provider [phone] Allergies No known active allergies Medications rizatriptan HOME INSURANCE AGENT (MAXALT-HOME INSURANCE AGENT) 10 mg disintegrating tabletIndications:M igraine Take one [...] on file Sexual Orientation Not on file Obstetrics History Last Filed Vital Signs Vital Sign Reading [...] 07/29/2022 9:16 AM CDT Plan of Treatment Health Maintenance Due Date Last Done Comments Cervical Cancer Screening 1996 Depression Screening 1996 Hepatitis C Screening 1996 Varicella Vaccines (2 of 2 - 2-dose childhood series) 02/21/2007 11/29/2006 HPV Vaccines (2 - 3-dose series) 10/24/2012 09/26/2012 Regular Well Visit/Exam 18-64 2014 Covid-19 Vaccine ( season) 2023 02/07/2021, 01/17/2021 Influenza Vaccine (#1) 2023 12/11/2014 DTaP/Tdap/Td Vaccine (7 - Td or Tdap) 12/11/2024 12/11/2014, 11/29/2006, 02/18/1998, Additional history exists Hepatitis B Screening Completed 04/05/1997 , 1996, 1996 Pneumococcal vaccine <65 Aged Out No longer eligible based on patient's age to complete this topic Insurance [employer] Care Teams Tinsmith Helper Relationship Specialty Start Date End Date No, Physician PCP - General 07/29/22
--- OUTSIDE RECORDS SUMMARY | 2024-07-31 08:42 | XMS_ITS | Data Portability ---
Author Organization [place] [facility], Main Office Address [address] [place] [address] Assessment No assessment recorded. Plan of Treatment Reminders Order Date Submit Date Provider Last Modified By Organization Details Last Modified Time Details Appointments None recorded. Lab vitamin D3, 25-hydroxy, serum [address] ([address]), [address] [place], [address], 3 13:54:14 vitamin B12 + folate, serum or blood [address] (Lab), [address] [place], [address], 3 13:54:14 lipid panel, serum [address] (Lab), [address] [place], [address], 3 13:54:13 CBC w/ auto diff [address] (Lab), [address] [place], [address], 3 13:54:13 T4, free, serum [address] (Lab), [address] [place], [address], 3 13:54:13 CMP, serum or plasma [address] (Lab), [address] [place], [address], 3 13:54:13 CK (creatine kinase), total, serum [address] (Lab), [address] [place], [address], 3 13:54:14 CBC [address] (Lab), [address] [place], [address], 3 13:54:14 LU (antinuclea r antibodies) screen, ifa, serum [address] (Lab), [address] [place], [address], 3 13:54:12 TSH, serum or plasma [address] (Lab), [address] [place], [address], 3 13:54:12 vitamin B12, serum [address] (Lab), [address] [place], [address], 3 13:54:13 Referral None recorded. Procedures None recorded. Surgeries None recorded. Imaging None recorded. Medication Orders meclizine 12.5 mg tablet 2022 023 [email or web address]63, [address], [place], [place], [id number], 3 15:19:09 ibuprofen 800 mg tablet 2022 023 [facility], [address], [place], [place], [id number], 3 15:14:16 trazodone 50 mg tablet [address] [facility] #19342, [address], [place], [place], [id number], 3 11:44:57 amoxicillin 500 mg capsule [address] [facility] #96789, [address], [place], [place], [id number], 3 11:43:27 ondansetron 4 mg disintegrat ing tablet [address] [facility] #17125, [address], [place], [place], [id number], 3 11:32:31 hydroxyzine HCl 10 mg tablet [address] [facility] #44524, [address], [place], [place], [address], 3 11:35:46 sertraline 25 mg tablet [address] [facility] #42775, [address], [place], [place], [id number], 3 11:47:20 sertraline 50 mg tablet [address] [facility] #96418, [address], [place], [place], [id number], 3 11:48:34 Patient TargetsNo targets recorded. Patient Instructions Encounter Date Encounter Id Patient Instructions Last Modified By Organization Details Last Modified Time 09/04/2022 [id number] counseled : no si/hi. write out thoughts , shred, get book finding your strength in difficult times . Get olga: Headspace or Calm Not available 09/06/2022 15:48:15 09/08/2022 [id number] heating pad to left ear sitting upright 5 minutes at a time, breathe in steam in the shower , FF. get olga headspace or calm , write out thoughts [email or web address] Not available 09/09/2022 14:32:48 Reason for Referral None Reported. Problems Name Problem SNOMED Code Status Onset Date Resolution Date Notes Provider Name and Address Organization Details Recorded Time Migraine 36946227 Active 2022 RHETT Linares [address], [address], [place], [address], [facility] 3 11:24:42 Panic attack 818688998 Active 2022 RHETT Linares [address], [address], [place], [address], [facility] 3 11:30:07 Nausea 356273412 Active 2022 RHETT Linares [address], [address], [place], [address], [facility] 3 11:31:24 Irritable bowel syndrome 54980738 Active 2022 RHETT Linares [address], [address], [place], [address], [facility] 3 11:46:09 Depressive disorder 84045818 Active 2022 RHETT Linares [address], [address], [place], [address], [facility] 3 11:46:23 Adult health examination Active 2022 RHETT Linares [address], [address], [place], [address], [facility] 3 11:54:08 At increased risk of nutritional deficit 151724093 Active 2022 RHETT Linares [address], [address], [place], [address], [facility] 3 11:55:53 Acute left otitis media 087967996 Active 2022 RHETT Linares [address], [place], [address], [facility] [employer] [facility] [employer] [facility] 3 11:42:21 Insomnia 300715623 Active 2022 RHETT Linares [address], [address], [place], [address], [email or web address] [facility] [employer] [facility] 3 11:43:54 Acute sinusitis 53030366 Active 2022 RHETT Linares [address], [address], [place], [address], [email or web address] [facility] [employer] [facility] 3 09:26:08 Vertigo 666535556 Active 2022 RHETT Linares [address], [place], [address], [email or web address] [facility] [employer] [facility] 3 15:18:16 Problem Notes None recorded. Medical Equipment None Reported. Allergies No known drug allergies Medications Name Sig Start Date Stop Date Status Note LastModified by Organization Details LastModified Time amoxicillin 500 mg capsule TAKE 2 CAPSULES BY MOUTH TWICE DAILY FOR 10 DAYS active Not Available Not Available No t Available hydrocortis one-pramoxi ne 2.5 %-1 % rectal cream INSERT 1 APPLICATI ON RECTALLY DIRECTED 09/04 completed Not Available Not Available Not Available trazodone 50 mg tablet TAKE 1 TABLET BY MOUTH EVERY DAY AT BEDTIME active Not Available Not Available No t Available ibuprofen 800 mg tablet Take 1 tablet 3 times a day by oral route with meals for 30 days. 2022 active Not Available Not Available Not Avai lable meclizine 12.5 mg tablet TAKE 1 TABLET BY MOUTH THREE TIMES DAILY NEEDED active Not Available Not Available No t Available triamcinolo ne acetonide 0.1 % topical cream APPLY TOPICALLY TO THE AFFECTED AREA TWICE DAILY 09/04 completed Not Available Not Available Not Available rizatriptan 10 mg disintegrat ing tablet DISSOLVE ONE TABLET BY MOUTH NEEDED FOR HEADACHE. MAY REPEAT IN 2 HOURS IF UNRESOLVE D. DO NOT EXCEED 30 MG IN 24 HOURS 09/04 completed Not Available Not Available Not Available fluoxetine 10 mg capsule active Not Available Not Available Not Available sertraline 25 mg tablet TAKE 1 TABLET BY MOUTH EVERY DAY IN THE MORNING FOR 7 DAYS active Not Available Not Available No t Available ergocalcife rol (vitamin D2) 1,250 mcg (50,000 unit) capsule TAKE 1 CAPSULE BY MOUTH EVERY 7 DAYS active Not Available Not Available No t Available levofloxaci n 750 mg tablet TAKE 1 TABLET BY MOUTH EVERY DAY FOR 14 DAYS active Not Available Not Available No t Available hydroxyzine HCl 10 mg tablet TAKE 1 TO 2 TABLETS BY MOUTH THREE TIMES DAILY NEEDED active Not Available Not Available No t Available ondansetron 4 mg disintegrat ing tablet DISSOLVE 1 TABLET ON THE TONGUE THREE TIMES DAILY NEEDED active Not Available Not Available No t Available sertraline 50 mg tablet Take 1 tablet every day by oral route in the morning for 30 days. active Not Available Not Available No t Available topiramate 50 mg tablet 09/04 completed Not Available Not Available Not Available Xulane 150 mcg-35 mcg/24 hr transdermal patch APPLY 1 PATCH TOPICALLY TO THE SKIN EVERY WEEK 09/04 completed Not Available Not Available Not Available Finacea 15 % topical foam 09/04 completed Not Available Not Available Not Available Vitals Date Recorded Body height Body temperature Body mass index (BMI) Body weight Heart rate Oxygen saturation Oxygen saturation in Arterial blood by Pulse oximetry Systolic blood pressure Diastolic blood pressure Provider Name and Address Organization Details Last Updated DateTime 3 157.48 cm 97.3 [degF] 27.4 kg/m2 77050.8 6 g 93 /min 98 % 98 % 132 mm[Hg] 86 mm[Hg] Sandy Donnelly MA [facility] [employer] 3 11:13:07 Date Recorded Body height Body mass index (BMI) Body weight Body temperature Heart rate Oxygen saturation Oxygen saturation in Arterial blood by Pulse oximetry Systolic blood pressure Diastolic blood pressure Provider Name and Address Organization Details Last Updated DateTime 3 157.48 cm 28.5 kg/m2 43353.4 1 g 97.8 [degF] 96 /min 99 % 99 % 142 mm[Hg] 100 mm[Hg] Sandy Donnelly MA [facility] [employer] 3 11:35:50 Date Recorded Body height Body mass index (BMI) Body weight Body temperature Heart rate Oxygen saturation Oxygen saturation in Arterial blood by Pulse oximetry Systolic blood pressure Diastolic blood pressure Provider Name and Address Organization Details Last Updated DateTime 3 157.48 cm 28.7 kg/m2 50151 g 97.9 [degF] 97 /min 99 % 99 % 122 mm[Hg] 68 mm[Hg] Sandy Donnelly MA [facility] [employer] 3 15:02:52 Social History Question Answer Notes LastModified by Loc[employer] Details LastModified Time Tobacco Smoking Status Former Smoker Sandy Donnelly MA null, [facility] [employer] 09/04/2022 11:16:15 What Is Your Level Of Caffeine Consumption? Moderate Information not available 09/04/2022 When Did You Quit Smoking? 1-5yearssince lastcigarette Information not available 09/04/2022 What Is Your Current Pack Years? 10packyears [email or web address] Information not available 09/04/2022 Do You Use Your Seat Belt Or Car Seat Routinely? Yes [email or web address] Information not available 09/04/2022 Do You Participate In Social Media? Yes [email or web address] Information not available 09/04/2022 Sex: Unknown Functional Status Question Answer Note LastModified by [employer] Details LastModified Time What is your level of alcohol consumption? Occasional [email or web address] Information not available 09/04/2022 Mental Status Question Answer Note LastModified by Organization D etails LastModified Time Do you feel stressed (tense, restless, nervous, or anxious, or unable to sleep at night)? [id number] [email or web address] Information not available 09/04/2022 Family History Relationship Description Onset Age of this Age Resolved Age Notes LastModified by Organization Details LastModified Time Father No current problems or disability [email or web address] Not available 11:14:36 Mother No current problems or disability [email or web address] Not available 11:14:36 Medical History No medical history recorded. Gynecological HistoryNo gynecological history recorded. Obstetrics History GPAL:G 0 P 0 0 0 0 Past Encounters Encounter ID Performer Location Encounter Start Date Encounter Closed Date Diagnosis/Indication Diagnosis SNOMED-CT Code Diagnosis ICD10 Code Diagnosis Note [id number] Lulu Liu MD [facility] Tamela enrique [address] [place] [address] [place] [address] 09/04/2022 11:00:11 09/04/2022 12:17:47 Migraine 09812423 G43.909 Panic attack 014509242 F 41.0 Nausea 719767405 R11.0 Depressive disorder 3548 9007 F32.A Adult heal th examination 646637003 Z00.00 At [facility] ed risk of nutritional deficit 084533602 Z91.89 [id number] Lulu Liu MD [facility] Tamela enrique [facility] [place] [address] 09/08/2022 11:19:38 09/08/2022 12:25:43 Migraine 98747342 G43.909 Nausea 910785676 R11.0 Acute left otitis media 089576435 H66.92 Insomnia 216442505 G47.0 0 [id number] Lulu Liu MD [facility] Tamela enrique [facility] [place] [address] 09/15/2022 14:53:49 09/15/2022 15:15:57 Migraine 92260420 G43.909 Vertigo 137356039 R42 Acute sinusitis 83383632 J01.90 Health Concerns Section Related Observation LastModified by Organization Detai ls LastModified Time None Recorded Concern Status LastModified by Organization Details LastModified Time None Recorded Advance Directives Directive None Recorded Payers Encounter Date Sequence Insurance Name Policy Number Policy Morales Covered Member ID Morales Member ID Guarantor Name 09/04/2022 1 [employer] (PPO) Yani Foster [id number] Yani Foster 09/04/2022 2 [employer] - [facility] (MEDICAID REPLACEMENT - HMO) [id number] Yani Foster [id number] Yani Foster 09/08/2022 1 [employer] BENEFIT PLAN MANAGEMENT (PPO) Yani Foster [id number] Yani Foster 09/08/2022 2 [facility] (MEDICAID REPLACEMENT - HMO) [id number] Yani Foster [id number] Yani Foster 09/15/2022 1 [employer] BENEFIT PLAN MANAGEMENT (PPO) Yani Foster [id number] Yani Foster 09/15/2022 2 [facility] (MEDICAID REPLACEMENT - HMO) [id number] Yani Foster [id number] Yani Foster Notes Date Note Type Note Provider Name and Address Organization Details Recorded Time 09/04/2022 text/html has been having panic attacks and more frequent headaches , frontal , lessened with excedrin migraine. She cannot get anyone to listen to her or take her seriously. She lost her father age 10 , lost her spouse 7 years ago RHETT Linares [address], [place], [address], [facility] 09/06/2022 15:49:41 09/08/2022 text/html nauseated , a different kind of headache . , wants to stop sertraline for a few days . feels out of sorts . . no fever , no allergic rhinitis. Went to [facility] , they gave her a shot for her palpitations , anxiety . They emily a thyroid test . was normal RHETT Linares [address], [place], [address], [facility] [employer] 09/09/2022 14:33:09 09/15/2022 text/html Is a little better , but now right ear is bothering her . and getting vertigo at times , still , no fever RHETT Linares [address], [place], [address], [facility] 09/16/2022 15:44:01 OBGyn Episode No OBEpisode recorded.
== END 2024-07-31 08:34 | disposition home or self-care (01) ==
LOC: ANHIMG 08:34
PROVIDERS: PCP Family Medicine; Visit Provider Student in an Organized Health Care Education/Training Program
DX: N64.4 Mastodynia (principal)
CPT/HCPCS: 76642